=== PATIENT | female | born 1955 | race Caucasian/White ===

== ENCOUNTER 2020-12-24 00:13 | Emergency (ER) | payer MEDICARE ==
[2020-12-24 00:20] VITALS: RESP 18
[2020-12-24] MEDS ORDERED: HYDROcodone/APAP 5-325MG 1 EACH TAB PO STA (00:44)
[2020-12-24] MEDS ORDERED: DIPH,PERTUS(ACELL)TETVAC-LF 0.5 ML VIAL IM ONE (00:44)
--- NOTE | 2020-12-24 01:02 | ED ---
Animal Bite HPI - General Chief Complaint: Animal Bite Stated Complaint: Dog bite, rt hand Time Seen by Provider: 12/24/20 00:23 Source: patient Mode of arrival: ambulatory Limitations: no limitations - History of Present Illness Initial Comments: Patient is a 65-year-old female presenting to the emergency Department with complaints of pain in her right hand. Patient states that approximate 4:30 PM this evening, she went to break up a fight between her 2 dogs when one of them bit her on the right hand. Patient has two puncture wounds, one on the hand and one of the 4th right digit. Patient states she washed her hand right after. Throughout the evening, she noticed increase in pain and swelling. Patient states she was trying to hold off to see her regular doctor tomorrow however she was not able to sleep secondary to throbbing. Her dogs are all up-to-date with their vaccines including rabies. She is not up-to-date with her tetanus vacc ine. She is not on blood thinners. She has not taken anything for the pain. She has no further complaints at this time. - Related Data Previous Rx's Medication Instructions Recorded Amoxicillin/Potassium Clav 1 tab PO BID 10 Days #20 tab 12/24/20 [Augmentin 875-125 Tablet] Allergies Allergy/AdvReac Type Severity Reaction Status Date / Time No Known Allergies Allergy Verified 12/24/20 00:20 Review of Systems ROS Statement: Those systems with pertinent positive or pertinent negative responses have been documented in the HPI. ROS Other: All systems not noted in ROS Statement are negative. Past Medical History Past Medical History: No Reported History History of Any Multi-Drug Resistant Organisms: None Reported Past Surgical History: Tonsillectomy Past Psychological History: No Psychological Hx Reported Smoking Status: Current every day smoker Past Alcohol Use History: Occasional Past Drug Use History: None Reported General Exam - General Exam Comments Initial Comments: GENERAL: Patient is well-developed and well-nourished. Patient is nontoxic and in no acute distress. HEAD: Atraumatic, normocephalic. EYES: Pupils equal round and reactive to light, extraocular movements intact, sclera anicteric, conjunctiva are normal. Eyelids were unremarkable. ENT: TMs normal, nares patent, oropharynx clear without exudates. Moist mucous membranes. NECK: Normal range of motion, supple without lymphadenopathy or JVD. LUNGS: Unlabored respirations. Breath sounds clear to auscultation bilaterally and equal. No wheezes rales or rhonchi. HEART: Regular rate and rhythm without murmurs, rubs or gallops. ABDOMEN: Soft, nontender, normoactive bowel sounds. No guarding, no rebound. No masses appreciated. : Deferred MUSCULOSKELETAL: Patient does have full range of motion of her right hand and fingers as well as her wrist. She does have significant swelling over the dorsal aspect of her right hand. No clubbing or cyanosis. NEUROLOGICAL: Patient is alert and oriented x 3. Motor and sensory are also intact. Cranial nerves II through XII grossly intact. Symmetrical smile. Normal speech, normal gait. PSYCH: Normal mood, normal affect. SKIN: Warm, Dry, normal turgor, no rashes. Patient has significant swelling and some bruising of the right hand, dorsal aspect, there is a single puncture wound to the hand just proximal to the second MCP joint, she also has a second puncture wound to the fourth digit. Both of these wounds have no active bleeding. She is neurovascular intact. Limitations: no limitations Course Vital Signs 12/24/20 00:14 Temperature 98.2 F Pulse Rate 101 H Respiratory 18 Rate Blood Pressure 128/69 O2 Sat by Pulse 95 Oximetry Procedures - Orthopedic Splinting/Casting Injury #1 Side: right Upper Extremity Injury Location: hand Upper Extremity Immobilizer: posterior splint, Matteo wrap, synthetic pre-padded splint Medical Decision Making - Medical Decision Making Patient is a 65-year-old female here complaining of right hand pain after her dog bit her approximately 4:30 this afternoon. Her dogs are all up-to-date with their vaccines including rabies. We did update patient's tetanus vaccine today. X-rays reveal no acute fractures/dislocations in the right hand however I feel like there is a small irregularity in the second metacarpal right where she has a puncture wound. I will place the patient in a hand splint, I will also give her 1 g of Rocephin today as well as pain control. I will continue her on Augmentin. She will follow-up with her physician in 1-3 days, and also give her orthopedic referral as well. Patient is stable for discharge. Patient is in agreement with this plan of care. Return parameters were discussed with the patient and they verbalized understanding. Case discussed with Dr. Moreno. Disposition Clinical Impression: Dog bite of right hand Disposition: HOME SELF-CARE Condition: Stable Instructions (If sedation given, give patient instructions): Animal Bite (ED) Additional Instructions: Please return to the Emergency Department if symptoms worsen or any other concerns. Please take antibiotics as prescribed. Keep splint in place until follow-up with physician or orthopedics. May apply ice to the area, elevation for swelling control. I recommend taking Tylenol, alternate with aleve, for any discomfort, may take tramadol for more severe pain. Prescriptions: Amoxicillin/Potassium Clav [Augmentin 875-125 Tablet] 1 tab PO BID 10 Days #20 tab Is patient prescribed a controlled substance at d/c from ED?: No Referrals: Elder Delgado MD [Primary Care Provider] - 1-2 days Geoffrey Arriaga MD [STAFF PHYSICIAN] - 1-2 days
--- NOTE | 2020-12-24 01:25 | XR ---
EXAM: XR Right Hand Complete, 3 or More Views CLINICAL HISTORY: ITS.REASON XR Reason: dog bite, pain, swelling TECHNIQUE: Frontal, lateral and oblique views of the right hand. COMPARISON: No relevant prior studies available. FINDINGS: Bones/joints: Unremarkable. No acute fracture. No dislocation. Soft tissues: Mild soft tissue swelling over the dorsum of the hand. No radiopaque foreign body is seen. No subcutaneous gas. IMPRESSION: Mild soft tissue swelling over the dorsum of the hand. No radiopaque foreign body is seen. No fracture or dislocation identified.
[2020-12-24] MEDS ORDERED: traMADol 50 MG STARTER PACK 3 TAB BTL PO STA (01:56)
[2020-12-24] MEDS ORDERED: cefTRIAXone 1,000 MG VIAL (IM USE) IM STA (01:56)
[2020-12-24 02:15] VITALS: BP 101/54; PULSE 95; TEMP 99
== END 2020-12-24 02:18 | disposition home or self-care (01) ==
LOC: EC 00:13
DX: S61.431A Puncture wound without foreign body of right hand, initial encounter (principal); S61.234A Puncture wound without foreign body of right ring finger without damage to nail, initial encounter; F17.200 Nicotine dependence, unspecified, uncomplicated; Z23 Encounter for immunization; W54.0XXA Bitten by dog, initial encounter
CPT/HCPCS: 73130; 90715; 99283; 29125; 90471; 96372; J0696

== ENCOUNTER 2020-12-25 17:48 | Inpatient (IN) | payer MEDICARE ==
[2020-12-25] MEDS ORDERED: MORPHINE SULFATE 4 MG/ML SYRINGE IVP STA (18:12)
[2020-12-25] MEDS ORDERED: ONDANSETRON 4 MG/2 ML VIAL IVP STA (18:12)
--- NOTE | 2020-12-25 18:14 | ED ---
Animal Bite HPI - General Source: patient, RN notes reviewed Mode of arrival: ambulatory Limitations: no limitations <Cuate Chester - Last Filed: 12/25/20 18:18> <Bambi Tadeo - Last Filed: 12/30/20 14:44> - General Chief Complaint: Animal Bite Stated Complaint: Revisit - dog bite Time Seen by Provider: 12/25/20 18:02 - History of Present Illness Initial Comments: 65-year-old female presents emergency Department chief complaint of right hand dog bite infection. Patient states his happened on Tuesday was seen in emergency department this started antibiotics was given injection of antibiotics. Patient states the pain, swelling and redness have worsened. Patient states it's become very throbbing uncomfortable. Patient states has progressed even throughout the day. Patient's redness has spread to her right wrist. No known fevers but states that she's felt sick. No pain into her right elbow or axilla. (Cuate Chester) - Related Data Previous Rx's Medication Instructions Recorded Acetaminophen Tab [Tylenol] 650 mg PO Q6HR PRN #30 tab 12/29/20 Amoxicillin/Potassium Clav 1 tab PO BID 10 Days #20 tab 12/29/20 [Augmentin 875-125 Tablet] Calcium Carbonate [Tums] 500 mg PO QID PRN chew 12/29/20 HYDROcodone/APAP 5-325MG [[place] 1 each PO Q4HR PRN #12 tab 12/29/20 5-325] Nicotine 14Mg/24Hr Patch [Habitrol] 1 patch TRANSDERM DAILY 30 Days 12/29/20 #30 patch Pantoprazole [Protonix] 40 mg PO AC-BRKFST tablet. 12/29/20 Allergies Allergy/AdvReac Type Severity Reaction Status Date / Time ibuprofen [From Motrin] Allergy Dyspnea Verified 12/25/20 18:46 Review of Systems ROS Other: All systems not noted in ROS Statement are negative. <Cuate Chester - Last Filed: 12/25/20 18:18> ROS Other: All systems not noted in ROS Statement are negative. <Bambi Tadeo - Last Filed: 12/30/20 14:44> ROS Statement: Those systems with pertinent positive or pertinent negative responses have been documented in the HPI. Past Medical History Past Medical History: No Reported History History of Any Multi-Drug Resistant Organisms: None Reported Past Surgical History: Tonsillectomy Past Psychological History: No Psychological Hx Reported Smoking Status: Current every day smoker Past Alcohol Use History: Occasional Past Drug Use History: None Reported <Cuate Chester - Last Filed: 12/25/20 18:18> General Exam Limitations: no limitations General appearance: alert, in no apparent distress Head exam: Present: atraumatic, normocephalic, normal inspection Respiratory exam: Present: normal lung sounds bilaterally. Absent: respiratory distress, wheezes, rales, rhonchi, stridor Cardiovascular Exam: Present: regular rate, normal rhythm, normal heart sounds. Absent: systolic murmur, diastolic murmur, rubs, gallop, clicks Extremities exam: Present: other (Right hand there is extensive erythema on the dorsal aspects bending to the wrist there are 2 puncture wounds with purulent dr farrah noted, pain with movement of the digits.) <Cuate Chester - Last Filed: 12/25/20 18:18> Course Vital Signs 12/25/20 12/25/20 17:55 19:17 Temperature 98.3 F 98.7 F Pulse Rate 68 89 Respiratory 18 18 Rate Blood Pressure 105/68 114/56 O2 Sat by Pulse 99 98 Oximetry Medical Decision Making <Cuate Chester - Last Filed: 12/25/20 18:18> - Lab Data Result diagrams: 12/27/20 11:16 12/27/20 11:16 <Bambi Tadeo - Last Filed: 12/30/20 14:44> - Medical Decision Making 65-year-old female presents for recheck right hand dog bite. Patient has failed outpatient treatment. Patient has significant cellulitis. Patient be started on fosphenytoin and advice will be admitted to medicine with consult orthopedics. (Cuate Chester) I was available for consultation in the emergency department. The history and physical exam were done by the midlevel provider. I was consulted for this patients care. I reviewed the case with the midlevel provider and based on their presentation of the patient, I agree with the assessment, medical decision making and plan of care as documented. Patient evaluated by myself. She is stated on zosyn* Chart was dictated using EXFO dictation software. Attempts were made to correct any dictation errors however some typographical errors may persist. Patient was seen during a national state of emergency due to the Covid-19 pandemic. (Bambi Tadeo) - Lab Data Lab Results 12/25/20 12/25/20 12/25/20 Range/Units 18:22 18:22 18:22 WBC 12.4 H (3.8-10.6) k/uL RBC 3.83 (3.80-5.40) m/uL Hgb 13.0 (11.4-16.0) gm/dL Hct 37.7 (34.0-46.0) % MCV 98.3 (80.0-100.0) fL MCH 33.8 (25.0-35.0) pg MCHC 34.4 (31.0-37.0) g/dL RDW 13.0 (11.5-15.5) % Plt Count 194 (150-450) k/uL MPV 7.7 Neutrophils % 86 % Lymphocytes % 9 % Monocytes % 3 % Eosinophils % 2 % Basophils % 0 % Neutrophils # 10.6 H (1.3-7.7) k/uL Lymphocytes # 1.1 (1.0-4.8) k/uL Monocytes # 0.4 (0-1.0) k/uL Eosinophils # 0.2 (0-0.7) k/uL Basophils # 0.0 (0-0.2) k/uL Sodium 133 L (137-145) mmol/L Potassium 4.1 (3.5-5.1) mmol/L Chloride 99 (98-107) mmol/L Carbon Dioxide 26 (22-30) mmol/L Anion Gap 8 mmol/L BUN 10 (7-17) mg/dL Creatinine 0.62 (0.52-1.04) mg/dL Est GFR (CKD-EPI)AfAm >90 (>60 ml/min/1.73 sqM) Est GFR (CKD-EPI)NonAf >90 (>60 ml/min/1.73 sqM) Glucose 110 H (74-99) mg/dL Plasma Lactic Acid [place] 1.0 (0.7-2.0) mmol/L Calcium 9.3 (8.4-10.2) mg/dL Total Bilirubin 1.4 H (0.2-1.3) mg/dL AST 54 H (14-36) U/L ALT 28 (4-34) U/L Alkaline Phosphatase 71 (38-126) U/L C-Reactive Protein 54.6 H (<10.0) mg/L Total Protein 6.9 (6.3-8.2) g/dL Albumin 4.5 (3.5-5.0) g/dL Coronavirus (PCR) (Not Detectd) 12/25/20 12/27/20 12/27/20 Range/Units 19:00 11:16 11:16 WBC 5.3 (3.8-10.6) k/uL RBC 3.34 L (3.80-5.40) m/uL Hgb 10.8 L (11.4-16.0) gm/dL Hct 33.2 L (34.0-46.0) % MCV 99.6 (80.0-100.0) fL MCH 32.2 (25.0-35.0) pg MCHC 32.4 (31.0-37.0) g/dL RDW 13.5 (11.5-15.5) % Plt Count 183 (150-450) k/uL MPV 8.3 Neutrophils % 73 % Lymphocytes % 13 % Monocytes % 7 % Eosinophils % 4 % Basophils % 0 % Neutrophils # 3.9 (1.3-7.7) k/uL Lymphocytes # 0.7 L (1.0-4.8) k/uL Monocytes # 0.4 (0-1.0) k/uL Eosinophils # 0.2 (0-0.7) k/uL Basophils # 0.0 (0-0.2) k/uL Sodium 136 L (137-145) mmol/L Potassium 3.7 (3.5-5.1) mmol/L Chloride 105 (98-107) mmol/L Carbon Dioxide 29 (22-30) mmol/L Anion Gap 2 mmol/L BUN 6 L (7-17) mg/dL Creatinine 0.59 (0.52-1.04) mg/dL Est GFR (CKD-EPI)AfAm >90 (>60 ml/min/1.73 sqM) Est GFR (CKD-EPI)NonAf >90 (>60 ml/min/1.73 sqM) Glucose 158 H (74-99) mg/dL Plasma Lactic Acid [place] (0.7-2.0) mmol/L Calcium 8.2 L (8.4-10.2) mg/dL Total Bilirubin (0.2-1.3) mg/dL AST (14-36) U/L ALT (4-34) U/L Alkaline Phosphatase (38-126) U/L C-Reactive Protein (<10.0) mg/L Total Protein (6.3-8.2) g/dL Albumin (3.5-5.0) g/dL Coronavirus (PCR) Not Detected (Not Detectd) Disposition <Cuate Chester - Last Filed: 12/25/20 18:18> <Bambi Tadeo - Last Filed: 12/30/20 14:44> Clinical Impression: Dog bite of right hand with infection, Failure of outpatient treatment Disposition: ADMITTED IP TO THIS HOSP Condition: Fair
[2020-12-25] MEDS ORDERED: PIPERACILLIN-TAZOBACTAM 3.375 GM in SODIUM CHLORIDE 0.9% 100 ML IVPB STA (18:15)
[2020-12-25] MEDS ORDERED: NALOXONE 0.4 MG/ML 1 ML VIAL IV PRN (18:20)
[2020-12-25] MEDS ORDERED: ONDANSETRON 4 MG/2 ML VIAL IVP PRN (18:20)
[2020-12-25] MEDS ORDERED: KETOROLAC 15 MG/ML 1 ML VIAL IVP PRN (18:20)
[2020-12-25] MEDS: SODIUM CHLORIDE 0.9% 1,000 ML IV SCH (18:28)
[2020-12-25 18:30] LABS: Basophils % (A) 0 %; Eosinophils # (A) 0.2 k/uL (0-0.7); Eosinophils % (A) 2 %; HCT 37.7 % (34.0-46.0); Lymphocytes # (A) 1.1 k/uL (1.0-4.8); Lymphocytes % (A) 9 %; MCH 33.8 pg (25.0-35.0); MCHC 34.4 g/dL (31.0-37.0); MCV 98.3 fL (80.0-100.0); Mean Platelet Volume 7.7; Monocytes # (A) 0.4 k/uL (0-1.0); Monocytes % (A) 3 %; Neutrophils # (A) 10.6 k/uL (1.3-7.7); Neutrophils % (A) 86 %; Platelet Count 194 k/uL (150-450); RBC 3.83 m/uL (3.80-5.40); WBC 12.4 k/uL (3.8-10.6)
[2020-12-25 18:46] LABS: ALT 28 U/L (4-34); AST 54 U/L (14-36); African American GFR (CKD) >90 (>60 ml/min/1.73 sqM); Albumin 4.5 g/dL (3.5-5.0); Alkaline Phosphatase 71 U/L (38-126); Anion Gap 8 mmol/L; Blood Urea Nitrogen 10 mg/dL (7-17); C Reactive Protein 54.6 mg/L (<10.0); Calcium 9.3 mg/dL (8.4-10.2); Carbon Dioxide 26 mmol/L (22-30); Chloride 99 mmol/L (98-107); Glucose 110 mg/dL (74-99); Non-African American GFR(CKD) >90 (>60 ml/min/1.73 sqM); Potassium 4.1 mmol/L (3.5-5.1); Sodium 133 mmol/L (137-145); Total Bilirubin 1.4 mg/dL (0.2-1.3); Total Protein 6.9 g/dL (6.3-8.2)
[2020-12-25] MEDS: ACETAMINOPHEN TAB 325 MG TAB PO PRN (21:50)
[2020-12-25] MEDS: MORPHINE SULFATE 4 MG/ML SYRINGE IV PRN (21:50)
[2020-12-25] MEDS: PIPERACILLIN-TAZOBACTAM 3.375 GM in SODIUM CHLORIDE 0.9% 100 ML IVPB SCH (23:06)
[2020-12-25] MEDS: Acetaminophen-Codeine 300-30mg TAB PO PRN (23:17)
[2020-12-26] MEDS: SODIUM CHLORIDE 0.9% 1,000 ML IV SCH ×4 (01:10→23:16)
[2020-12-26] MEDS: MORPHINE SULFATE 4 MG/ML SYRINGE IV PRN (05:32)
[2020-12-26] MEDS: Acetaminophen-Codeine 300-30mg TAB PO PRN ×2 (05:33→20:19)
--- NOTE | 2020-12-26 09:05 | P.CNOR ---
History of Present Illness - [facility] Consult date: 12/26/20 Consult reason: other (Cellulitis right hand. Status post dog bite right hand.) History of present illness: This is a 65-year-old female admitted through the emergency department last evening with worsening of her right hand swelling. She has history of being bit by her neighbor's dog on 12/23/2020. She was seen in the emergency department initially and placed on oral antibiotics. Her swelling and redness worsened and she returned to the ER and has been admitted for IV antibiotics. We're consulted for orthopedic evaluation of the right hand. Past Medical History Past Medical History: No Reported History History of Any Multi-Drug Resistant Organisms: None Reported Past Surgical History: Tonsillectomy Past Psychological History: No Psychological Hx Reported Smoking Status: Current every day smoker Past Alcohol Use History: Occasional Past Drug Use History: None Reported Medications and Allergies Home Medications Medication Instructions Recorded Confirmed Type Amoxicillin/Potassium Clav 1 tab PO BID 10 Days #20 tab 12/24/20 12/25/20 Rx [Augmentin 875-125 Tablet] Allergies Allergy/AdvReac Type Severity Reaction Status Date / Time ibuprofen [From Motrin] Allergy Dyspnea Verified 12/25/20 18:46 Physical Examination This is a pleasant 65-year-old female in no acute distress. She is alert and oriented 3. Exam of the right upper extremity reveals erythema and swelling to the right hand and fingers. There are 3 small puncture wounds to the dorsum of the hand with no active drainage at this time. She has limited finger motion secondary to swelling. There is no focal area of abscess or fluid collection. She has a generalized swelling to the hand and fingers. There is no evidence of ascending lymphangitis. No axillary or epitrochlear lymph nodes palpable. Neurovascular status the upper extremity is intact. Results - Labs Labs: Abnormal Lab Results - Last 24 Hours (Table) 12/25/20 12/25/20 Range/Units 18:22 18:22 WBC 12.4 H (3.8-10.6) k/uL Neutrophils # 10.6 H (1.3-7.7) k/uL Sodium 133 L (137-145) mmol/L Glucose 110 H (74-99) mg/dL Total Bilirubin 1.4 H (0.2-1.3) mg/dL AST 54 H (14-36) U/L C-Reactive Protein 54.6 H (<10.0) mg/L Microbiology - Last 24 Hours (Table) 12/25/20 18:22 Wound Culture - Preliminary Hand - Right H & H 12/25/20 Range/Units 18:22 Hgb 13.0 (11.4-16.0) gm/dL Hct 37.7 (34.0-46.0) % Result Diagrams: 12/25/20 18:22 12/25/20 18:22 Assessment and Plan (1) Failure of outpatient treatment Current Visit: Yes Status: Acute Code(s): Z78.9 - OTHER SPECIFIED HEALTH STATUS SNOMED Code(s): 363468467 (2) Dog bite of right hand Current Visit: No Status: Acute Code(s): S61.451A - OPEN BITE OF RIGHT HAND, INITIAL ENCOUNTER; W54.0XXA - BITTEN BY DOG, INITIAL ENCOUNTER SNOMED Code(s): 535462782 Plan: The clinical findings are discussed with the patient and nursing staff. I will add moist heat pad to the right hand. Continue IV antibiotics. Internal medicine or infectious disease to manage IV antibiotic recommendations. There is no surgical indication at this time. Cultures from the ER pending. We will continue to follow.
[2020-12-26] MEDS: PIPERACILLIN-TAZOBACTAM 3.375 GM in SODIUM CHLORIDE 0.9% 100 ML IVPB SCH (09:21)
--- NOTE | 2020-12-26 12:38 | P.HPIM ---
History of Present Illness 6-year-old female came into hospital with complaints of pain and swelling in the right upper extremity after dog bite which happened about 3-4 days ago. Patient has significant pain and redness and swelling. Patient was started on Zosyn probably can be switched to Unasyn. Because of significant swelling in involvement of the hand patient was admitted. Patient was given oral antibiotics was discharged from came back with worsening symptoms subsequently admitted with orthopedic and infectious disease consult. Patient is a septic with the leukocytosis fever. Review of Systems REVIEW OF SYSTEMS: CONSTITUTIONAL: No fever, no malaise, no fatigue. HEENT: No recent visual problems or hearing problems. Denied any sore throat. CARDIOVASCULAR: No chest pain, orthopnea, PND, no palpitations, no syncope. PULMONARY: No shortness of breath, no cough, no hemoptysis. GASTROINTESTINAL: No diarrhea, no nausea, no vomiting, no abdominal pain. NEUROLOGICAL: No headaches, no weakness, no numbness. HEMATOLOGICAL: Denies any bleeding or petechiae. GENITOURINARY: Denies any burning micturition, frequency, or urgency. MUSCULOSKELETAL/RHEUMATOLOGICAL: As mentioned in HPI ENDOCRINE: Denies any polyuria or polydipsia. The rest of the 14-point review of systems is negative. Past Medical History Past Medical History: No Reported History History of Any Multi-Drug Resistant Organisms: None Reported Past Surgical History: Tonsillectomy Past Psychological History: No Psychological Hx Reported Smoking Status: Current every day smoker Past Alcohol Use History: Occasional Past Drug Use History: None Reported Medications and Allergies Home Medications Medication Instructions Recorded Confirmed Type Amoxicillin/Potassium Clav 1 tab PO BID 10 Days #20 tab 12/24/20 12/25/20 Rx [Augmentin 875-125 Tablet] Allergies Allergy/AdvReac Type Severity Reaction Status Date / Time ibuprofen [From Motrin] Allergy Dyspnea Verified 12/25/20 18:46 Physical Exam Vitals: Vital Signs Temp Pulse Pulse Resp BP BP Pulse Ox 12/26/20 07:00 100.6 F H 94 16 101/53 93 L 12/26/20 05:27 99.7 F H 12/26/20 02:50 94 12/26/20 02:49 101.6 F H 94 102/58 97 12/25/20 20:33 99.6 F 88 96/56 97 12/25/20 19:17 98.7 F 89 18 114/56 98 12/25/20 17:55 98.3 F 68 18 105/68 99 Intake and Output 12/25/20 12/26/20 12/26/20 22:59 06:59 14:59 Other: Voiding Method Toilet # Voids 1 1 Weight 54.431 kg PHYSICAL EXAMINATION: GENERAL: The patient is alert and oriented x3, not in any acute distress. Well developed, well nourished. HEENT: Pupils are round and equally reacting to light. EOMI. No scleral icterus. No conjunctival pallor. Normocephalic, atraumatic. No pharyngeal erythema. No thyromegaly. CARDIOVASCULAR: S1 and S2 present. No murmurs, rubs, or gallops. PULMONARY: Chest is clear to auscultation, no wheezing or crackles. ABDOMEN: Soft, nontender, nondistended, normoactive bowel sounds. No palpable organomegaly. MUSCULOSKELETAL: No joint swelling or deformity. EXTREMITIES: No cyanosis, clubbing, or pedal edema. Patient has a swelling of the right hand with significant local is of temperature tenderness NEUROLOGICAL: Gross neurological examination did not reveal any focal deficits. SKIN: No rashes. Results CBC & Chem 7: 12/25/20 18:22 12/25/20 18:22 Labs: Abnormal Lab Results - Last 24 Hours (Table) 12/25/20 12/25/20 Range/Units 18:22 18:22 WBC 12.4 H (3.8-10.6) k/uL Neutrophils # 10.6 H (1.3-7.7) k/uL Sodium 133 L (137-145) mmol/L Glucose 110 H (74-99) mg/dL Total Bilirubin 1.4 H (0.2-1.3) mg/dL AST 54 H (14-36) U/L C-Reactive Protein 54.6 H (<10.0) mg/L Microbiology - Last 24 Hours (Table) 12/25/20 18:22 Gram Stain - Preliminary Hand - Right Wound Culture - Preliminary Thrombosis Risk Factor Assmnt - Choose All That Apply Each Risk Factor Represents 2 Points: Age 61-74 years Thrombosis Risk Factor Assessment Total Risk Factor Score: 2 Thrombosis Risk Factor Assessment Level: Low Risk Assessment and Plan Plan: -Sepsis: Secondary to cellulitis infection of the right hand secondary to diabetic patient is a Zosyn probably can be switched to Unasyn. Patient received tetanus shot. -Leukocytosis secondary to sepsis as mentioned above -Nicotine use: Counseling was provided -DVT prophylaxis early ambulation
[2020-12-26] MEDS: HYDROcodone/APAP 5-325MG 1 EACH TAB PO PRN ×2 (13:35→18:38)
--- NOTE | 2020-12-26 16:11 | CONS ---
CONSULTATION DATE OF SERVICE: 12/26/2020 REASON FOR FOLLOWUP: Right hand dog bite cellulitis. HISTORY OF PRESENT ILLNESS: The patient is a 65-year-old female who apparently did have a bite on the right hand on Tuesday that is 3 days prior to presentation to the hospital, the patient was seen on the same day. Patient was evaluated. At that point, she received a dose of IM antibiotic and was discharged home on oral Augmentin which the patient took for about a day and a half. However, the right wrist and hand were becoming more swollen, red and painful. The patient described the pain to be throbbing to dull aching intensity almost 7 to 8/10, no radiation. Currently, the patient does not have any open wound or any drainage. The patient denies high-grade fever at home; however, she did have fever of 101.6 degrees Fahrenheit early this morning. The patient did have white count of 12.4. Kidd PCR was negative. Wound culture has been , currently pending. The patient did have x-rays of the hand done on the , which showed some mild soft tissue swelling and no x-ray was repeated during this admission. She was started on Zosyn and admitted to the hospital. Infectious Disease was consulted for further management of antibiotic therapy. REVIEW OF SYSTEMS: Positive points have been mentioned in HPI. Rest of systems are negative. PAST MEDICAL HISTORY: No major illnesses. PAST SURGICAL HISTORY: Tonsillectomy. SOCIAL HISTORY: Current everyday smoker. Occasionally drinks. No drug use. FAMILY HISTORY: No pertinent findings noticed. ALLERGIES: IBUPROFEN. MEDICATIONS: Medications include the patient is currently on Tylenol, [place], Zosyn, morphine sulfate, Narcan, Zofran and IV fluid. PHYSICAL EXAMINATION: Blood pressure 101/53 with a pulse of 94, temperature 100.6, T-max 101.6. She is 93% on room air. General description is an elderly female lying in bed in no distress. No tachypnea or accessory muscle of respiration use. HEENT: Examination shows no pallor or scleral icterus. Oral mucous membrane is dry. No pharyngeal erythema or thrush. NECK: Trachea central. No thyromegaly. LUNGS: Unlabored breathing, clear to auscultation anteriorly. No wheeze or crackle. HEART: S1, S2. Regular rate and rhythm. ABDOMEN: Soft, no tenderness. No guarding or rigidity. EXTREMITIES: No edema of feet. Examination of right hand dorsum has mild swelling and redness, slightly warm to touch and tender. No induration or drainage was noticed. Neurological: Patient is awake, alert, oriented x3. Mood and affect normal. LABS: Hemoglobin 13, white count 2.4, BUN of 10, creatinine 0.62. Electrolytes have been normal. Liver enzymes mildly elevated. Local culture is currently pending. DIAGNOSTIC IMPRESSION: Patient with right hand dog bite and cellulitis, failing outpatient oral Augmentin, more likely because of the wound disease. Clinically doubt any worsening infection or any underlying abscess and will need to cover for the oral eric of the dog with a combination of both gram-negative aerobes and anaerobes. PLAN: 1. Discontinue Zosyn. 2. Start the patient on Unasyn 3 grams q.6 hours. 3. We will follow on clinical condition and culture to further adjust medication if needed. Thank you for this consultation. Will follow this patient along with you. MMODL / IJN: [id number] /
[2020-12-26] MEDS: AMPICILLIN-SULBACTAM 3 GM in SODIUM CHLORIDE 0.9% 100 ML IVPB SCH ×2 (18:00→23:14)
[2020-12-27] MEDS: HYDROcodone/APAP 5-325MG 1 EACH TAB PO PRN ×3 (02:55→19:49)
[2020-12-27] MEDS: Acetaminophen-Codeine 300-30mg TAB PO PRN ×2 (02:57→12:09)
[2020-12-27] MEDS: AMPICILLIN-SULBACTAM 3 GM in SODIUM CHLORIDE 0.9% 100 ML IVPB SCH ×4 (05:26→23:51)
--- NOTE | 2020-12-27 11:34 | P.PN ---
Subjective Progress Note Date: 12/27/20 Principal diagnosis: Right upper extremity cellulitis. Status post dog bite right hand. This is a 65-year-old female admitted through the emergency department with worsening of her right hand swelling. She has history of being bit by her neighbor's dog on 12/23/2020. She was seen in the emergency department initially and placed on oral antibiotics. Her swelling and redness worsened and she returned to the ER and has been admitted for IV antibiotics. We're consulted for orthopedic evaluation of the right hand. Moist heat has not yet been applied to the hand. She states that she feels she's had slight improvement the last 24 hours. Temperature is 99.5. Wound culture shows no growth at 24 hours. Objective - Vital Signs Vital signs: Vital Signs Temp 99.5 F 12/27/20 02:53 Pulse 103 H 12/27/20 03:06 Resp 18 12/26/20 15:00 BP 119/69 12/27/20 02:53 Pulse Ox 93 L 12/27/20 02:53 Intake & Output 12/26/20 12/27/20 12/27/20 18:59 06:59 18:59 Intake Total 100 900 180 Balance 100 900 180 Intake: Intake, IV Titration 100 Amount Piperacillin-Tazobactam 3 100 .375 gm In Sodium Chloride 0.9% 100 ml @ 25 mls/hr IVPB Q8HR [facility] Rx# :[id number] Oral 900 180 Other: Voiding Method Toilet Toilet Toilet # Voids 1 4 - Exam Exam of the right hand reveals slight improvement in swelling. She has a little bit more finger motion today than she had yesterday. Still unable to make a full fist. Mild erythema to the dorsum of the hand. No erythematous streaking up the arm or obvious signs of lymphangitis. Neurovascular status to the upper extremity is intact. - Labs CBC & Chem 7: 12/25/20 18:22 12/25/20 18:22 Labs: Microbiology - Last 24 Hours (Table) 12/25/20 18:22 Blood Culture - Preliminary Blood No Growth after 24 hours 12/25/20 18:22 Gram Stain - Preliminary Hand - Right Wound Culture - Preliminary Assessment and Plan (1) Failure of outpatient treatment Current Visit: Yes Status: Acute Code(s): Z78.9 - OTHER SPECIFIED HEALTH STATUS SNOMED Code(s): 540109003 (2) Dog bite of right hand Current Visit: No Status: Acute Code(s): S61.451A - OPEN BITE OF RIGHT HAND, INITIAL ENCOUNTER; W54.0XXA - BITTEN BY DOG, INITIAL ENCOUNTER SNOMED Code(s): 233928941 Plan: The clinical findings are discussed with the patient and nursing staff. I still recommend moist heat to the right hand. Continue IV antibiotics. There is no surgical indication at this time. Cultures from the ER pending. We will continue to follow.
[2020-12-27 11:35] LABS: Basophils % (A) 0 %; Eosinophils # (A) 0.2 k/uL (0-0.7); Eosinophils % (A) 4 %; HCT 33.2 % (34.0-46.0); HGB 10.8 gm/dL (11.4-16.0); Lymphocytes # (A) 0.7 k/uL (1.0-4.8); Lymphocytes % (A) 13 %; MCH 32.2 pg (25.0-35.0); MCHC 32.4 g/dL (31.0-37.0); MCV 99.6 fL (80.0-100.0); Mean Platelet Volume 8.3; Monocytes # (A) 0.4 k/uL (0-1.0); Monocytes % (A) 7 %; Neutrophils # (A) 3.9 k/uL (1.3-7.7); Neutrophils % (A) 73 %; Platelet Count 183 k/uL (150-450); RBC 3.34 m/uL (3.80-5.40); RDW 13.5 % (11.5-15.5); WBC 5.3 k/uL (3.8-10.6)
[2020-12-27 11:42] LABS: African American GFR (CKD) >90 (>60 ml/min/1.73 sqM); Anion Gap 2 mmol/L; Blood Urea Nitrogen 6 mg/dL (7-17); Calcium 8.2 mg/dL (8.4-10.2); Carbon Dioxide 29 mmol/L (22-30); Chloride 105 mmol/L (98-107); Glucose 158 mg/dL (74-99); Non-African American GFR(CKD) >90 (>60 ml/min/1.73 sqM); Potassium 3.7 mmol/L (3.5-5.1); Sodium 136 mmol/L (137-145)
--- NOTE | 2020-12-27 11:44 | P.PN ---
Subjective Progress Note Date: 12/27/20 65-year-old female came into hospital with complaints of pain and swelling in the right upper extremity after dog bite which happened about 3-4 days ago. Patient has significant pain and redness and swelling. Patient was started on Zosyn probably can be switched to Unasyn. Because of significant swelling in involvement of the hand patient was admitted. Patient was given oral antibiotics was discharged from came back with worsening symptoms subsequently admitted with orthopedic and infectious disease consult. Patient is septic with the leukocytosis and fever. 12/27/2020 Patient is seen in follow-up with no acute overnight issues. Right hand continues to have swelling and redness noted although patient states the swelling is slightly improved. Patient continues to be unable to fully squeeze hand closed although does have sensation to all digits. Patient is maintained on IV antibiotics in the form of Unasyn and infectious disease is following. Cultures pending at this time and awaiting for finalization determine antibiotic coverage upon discharge. She was seen and evaluated by orthopedic surgery recommending conservative management and no surgical interventions needed at this time. Instructed to continue to elevate right upper extremity on a pillow as she has been doing. Review of systems: Constitutional: No reports of fatigue, fever, or chills Cardiovascular: No reports of chest pain or palpitations Respiratory: No reports of shortness of breath or cough GI: No reports of nausea, vomiting, or diarrhea : No reports of dysuria or retention Neurovascular: No reports of weakness or numbness, reports right hand swelling and tenderness with some redness although slightly improved, no reports of tingling or numbness of the right hand All medications have been reviewed Objective - Vital Signs Vital signs: Vital Signs Temp 99.5 F 12/27/20 02:53 Pulse 103 H 12/27/20 03:06 Resp 18 12/26/20 15:00 BP 119/69 12/27/20 02:53 Pulse Ox 93 L 12/27/20 02:53 Intake & Output 12/26/20 12/27/20 12/27/20 18:59 06:59 18:59 Intake Total 100 900 180 Balance 100 900 180 Intake: Intake, IV Titration 100 Amount Piperacillin-Tazobactam 3 100 .375 gm In Sodium Chloride 0.9% 100 ml @ 25 mls/hr IVPB Q8HR [facility] Rx# :[id number] Oral 900 180 Other: Voiding Method Toilet Toilet # Voids 1 4 - Exam GENERAL: The patient is alert and oriented x3, not in any acute distress. Well developed, well nourished. HEENT: Pupils are round and equally reacting to light. EOMI. No scleral icterus. No conjunctival pallor. Normocephalic, atraumatic. No pharyngeal erythema. No thyromegaly. CARDIOVASCULAR: S1 and S2 present. No murmurs, rubs, or gallops. PULMONARY: Chest is clear to auscultation, no wheezing or crackles. ABDOMEN: Soft, nontender, nondistended, normoactive bowel sounds. No palpable organomegaly. MUSCULOSKELETAL: No joint swelling or deformity. EXTREMITIES: No cyanosis, clubbing, or pedal edema. Patient has swelling and erythema of the right hand with significant localization of temperature, tenderness on palpation, redness and swelling slightly improved NEUROLOGICAL: Gross neurological examination did not reveal any focal deficits. SKIN: No rashes. - Labs CBC & Chem 7: 12/27/20 11:16 12/25/20 18:22 Labs: Microbiology - Last 24 Hours (Table) 12/25/20 18:22 Blood Culture - Preliminary Blood No Growth after 24 hours 12/25/20 18:22 Gram Stain - Preliminary Hand - Right Wound Culture - Preliminary Assessment and Plan Assessment: -Sepsis: Secondary to cellulitis infection of the right hand secondary to a dog bite of the neighbors dog with unknown immunization history. She is maintained on Unasyn and awaiting cultures. Infectious disease following.. Patient received tetanus shot. -Leukocytosis secondary to sepsis as mentioned above, improved white blood count is 5.3 -Nicotine use: Counseling was provided -DVT prophylaxis early ambulation Plan: Continue with IV antibiotic therapy. Infectious disease is following. Awaiting cultures to determine discharge antibiotics. Continue with pain management. Instructed the patient to continue to elevate right upper extremity on a pillow. Orthopedic surgery also following recommending conservative management with no surgical intervention at this time. Possible discharge in 24 hours
--- NOTE | 2020-12-27 13:19 | PN ---
PROGRESS NOTE DATE OF SERVICE: 12/27/2020 REASON FOR FOLLOWUP: Right hand dog bite cellulitis. INTERVAL HISTORY: The patient is currently afebrile. The patient is breathing comfortably. Right hand pain and swelling have slightly decreased. No chest pain, shortness of breath or cough. No diarrhea. PHYSICAL EXAMINATION: Blood pressure is 119/69 with a pulse of 103. Temperature 99.5. She is 93% on room air. General description: The patient is an elderly female lying in bed in no distress. Respiratory system: Unlabored breathing. Clear to auscultation anteriorly. Heart S1, S2. Regular rate and rhythm. Abdomen soft, no tenderness. Right hand swelling and redness is slightly decreased. LABS: No new labs have been obtained today. Blood culture negative. culture so far pending. DIAGNOSTIC IMPRESSION AND PLAN: Patient with right hand dog bite cellulitis. The patient is currently covered with Unasyn to continue while waiting for the culture to finalize before transition to oral antibiotics. Continue supportive care. MMODL / IJN: [id number] /
[2020-12-27] MEDS: SODIUM CHLORIDE 0.9% 1,000 ML IV SCH ×2 (15:26→23:53)
[2020-12-28] MEDS: Acetaminophen-Codeine 300-30mg TAB PO PRN (01:56)
[2020-12-28] MEDS: MORPHINE SULFATE 4 MG/ML SYRINGE IV PRN ×3 (05:54→16:04)
[2020-12-28] MEDS: AMPICILLIN-SULBACTAM 3 GM in SODIUM CHLORIDE 0.9% 100 ML IVPB SCH ×4 (05:56→23:11)
[2020-12-28] MEDS ORDERED: CALCIUM CARBONATE 500 MG CHEWABLE PO PRN (06:25)
[2020-12-28] MEDS: NICOTINE 14MG/24HR PATCH TRANSDERM SCH (08:07)
[2020-12-28] MEDS: SODIUM CHLORIDE 0.9% 1,000 ML IV SCH ×2 (08:11→20:27)
[2020-12-28] MEDS: PANTOPRAZOLE 40 MG TABLET PO SCH (08:14)
--- NOTE | 2020-12-28 11:08 | P.PN ---
Subjective Progress Note Date: 12/28/20 Principal diagnosis: Right upper extremity cellulitis. Status post dog bite right hand. This is a 65-year-old female admitted through the emergency department with worsening of her right hand swelling. She has history of being bit by her neighbor's dog on 12/23/2020. She was seen in the emergency department initially and placed on oral antibiotics. Her swelling and redness worsened and she returned to the ER and has been admitted for IV antibiotics. We're consulted for orthopedic evaluation of the right hand. Moist heat has not yet been applied to the hand. She states that she feels she's had slight improvement the last 24 hours. Temperature is 99.5. Wound culture shows no growth at 48 hours. Objective - Vital Signs Vital signs: Vital Signs Temp 99.2 F 12/28/20 07:00 Pulse 90 12/28/20 07:00 Resp 18 12/28/20 07:00 BP 114/63 12/28/20 07:00 Pulse Ox 96 12/28/20 07:00 Intake & Output 12/27/20 12/28/20 12/28/20 18:59 06:59 18:59 Intake Total 360 Balance 360 Intake: Oral 360 Other: Voiding Method Toilet Toilet # Voids 1 1 # Bowel Movements 1 - Exam Exam of the right hand reveals slight improvement in swelling. Still unable to make a full fist or fully extend fingers. Mild erythema to the dorsum of the hand. No erythematous streaking up the arm or obvious signs of lymphangitis. Neurovascular status to the upper extremity is intact. - Labs CBC & Chem 7: 12/27/20 11:16 12/27/20 11:16 Labs: Abnormal Lab Results - Last 24 Hours (Table) 12/27/20 12/27/20 Range/Units 11:16 11:16 RBC 3.34 L (3.80-5.40) m/uL Hgb 10.8 L (11.4-16.0) gm/dL Hct 33.2 L (34.0-46.0) % Lymphocytes # 0.7 L (1.0-4.8) k/uL Sodium 136 L (137-145) mmol/L BUN 6 L (7-17) mg/dL Glucose 158 H (74-99) mg/dL Calcium 8.2 L (8.4-10.2) mg/dL Microbiology - Last 24 Hours (Table) 12/25/20 18:22 Blood Culture - Preliminary Blood No Growth after 48 hours 12/25/20 18:22 Gram Stain - Final Hand - Right Wound Culture - Final Assessment and Plan (1) Failure of outpatient treatment Current Visit: Yes Status: Acute Code(s): Z78.9 - OTHER SPECIFIED HEALTH STATUS SNOMED Code(s): 821335007 (2) Dog bite of right hand Current Visit: No Status: Acute Code(s): S61.451A - OPEN BITE OF RIGHT HAND, INITIAL ENCOUNTER; W54.0XXA - BITTEN BY DOG, INITIAL ENCOUNTER SNOMED Code(s): 211316854 Plan: The clinical findings are discussed with the patient and nursing staff. I still recommend moist heat to the right hand. Continue IV antibiotics. There is no surgical indication at this time. We will continue to follow peripherally.
--- NOTE | 2020-12-28 12:50 | P.PN ---
Subjective Progress Note Date: 12/28/20 65-year-old female came into hospital with complaints of pain and swelling in the right upper extremity after dog bite which happened about 3-4 days ago. Patient has significant pain and redness and swelling. Patient was started on Zosyn probably can be switched to Unasyn. Because of significant swelling in involvement of the hand patient was admitted. Patient was given oral antibiotics was discharged from came back with worsening symptoms subsequently admitted with orthopedic and infectious disease consult. Patient is septic with the leukocytosis and fever. 12/27/2020 Patient is seen in follow-up with no acute overnight issues. Right hand continues to have swelling and redness noted although patient states the swelling is slightly improved. Patient continues to be unable to fully squeeze hand closed although does have sensation to all digits. Patient is maintained on IV antibiotics in the form of Unasyn and infectious disease is following. Cultures pending at this time and awaiting for finalization determine antibiotic coverage upon discharge. She was seen and evaluated by orthopedic surgery recommending conservative management and no surgical interventions needed at this time. Instructed to continue to elevate right upper extremity on a pillow as she has been doing. 12/28/2020 Patient is seen and evaluated this morning with no acute overnight issues. Localization of heat shows no improvement to the right hand with continued swelling and mild erythema noted. Patient states she is unable to squeeze her hand and feels her skin is more tight. Patient has been elevating the extremity although has not been applying ice and/or heat. Will initiate moist heat and mo nitor closely. [place] disease following as patient is maintained on IV antibiotic therapy in the form of Unasyn. Cultures resulted showing normal eric with no growth. Patient has had intermittent low-grade 99.9 temp noted. Review of systems: Constitutional: No reports of fatigue, fever, or chills Cardiovascular: No reports of chest pain or palpitations Respiratory: No reports of shortness of breath or cough GI: No reports of nausea, vomiting, or diarrhea : No reports of dysuria or retention Neurovascular: No reports of weakness or numbness, reports right hand swelling and tenderness with some redness although slightly improved, no reports of tingling or numbness of the right hand All medications have been reviewed Objective - Vital Signs Vital signs: Vital Signs Temp 99.2 F 12/28/20 07:00 Pulse 90 12/28/20 07:00 Resp 18 12/28/20 07:00 BP 114/63 12/28/20 07:00 Pulse Ox 96 12/28/20 07:00 Intake & Output 12/27/20 12/28/20 12/28/20 18:59 06:59 18:59 Intake Total 360 Balance 360 Intake: Oral 360 Other: Voiding Method Toilet Toilet # Voids 1 1 # Bowel Movements 1 - Exam GENERAL: The patient is alert and oriented x3, not in any acute distress. Well developed, well nourished. HEENT: Pupils are round and equally reacting to light. EOMI. No scleral icterus. No conjunctival pallor. Normocephalic, atraumatic. No pharyngeal erythema. No thyromegaly. CARDIOVASCULAR: S1 and S2 present. No murmurs, rubs, or gallops. PULMONARY: Chest is clear to auscultation, no wheezing or crackles. ABDOMEN: Soft, nontender, nondistended, normoactive bowel sounds. No palpable organomegaly. MUSCULOSKELETAL: No joint swelling or deformity. EXTREMITIES: No cyanosis, clubbing, or pedal edema. Patient has swelling and erythema of the right hand with significant localization of temperature, tenderness on palpation, redness and swelling slightly improved NEUROLOGICAL: Gross neurological examination did not reveal any focal deficits. SKIN: No rashes. - Labs CBC & Chem 7: 12/27/20 11:16 12/27/20 11:16 Labs: Microbiology - Last 24 Hours (Table) 12/25/20 18:22 Blood Culture - Preliminary Blood No Growth after 48 hours 12/25/20 18:22 Gram Stain - Final Hand - Right Wound Culture - Final Assessment and Plan Assessment: -Sepsis: Secondary to cellulitis infection of the right hand secondary to a dog bite of the neighbors dog with unknown immunization history. She is maintained on Unasyn. Infectious disease following.. Patient received tetanus shot. -Leukocytosis secondary to sepsis as mentioned above, improved white blood count is 5.3 -Nicotine use: Counseling was provided -DVT prophylaxis early ambulation Plan: Continue with IV antibiotic therapy. Infectious disease is following. cultures resulted showing normal skin eric with no growth noted. Continue with pain management. Instructed the patient to continue to elevate right upper extremity on a pillow. Continue with moist heat to the right hand and may alternate with cold packs. Orthopedic surgery also following recommending conservative management with no surgical intervention at this time. Possible discharge in 24 hours
[2020-12-28] MEDS: HYDROcodone/APAP 5-325MG 1 EACH TAB PO PRN (20:29)
[2020-12-29] MEDS: AMPICILLIN-SULBACTAM 3 GM in SODIUM CHLORIDE 0.9% 100 ML IVPB SCH ×3 (06:00→17:22)
[2020-12-29] MEDS: SODIUM CHLORIDE 0.9% 1,000 ML IV SCH ×2 (06:02→17:22)
--- NOTE | 2020-12-29 06:55 | PN ---
PROGRESS NOTE DATE OF SERVICE: 12/28/2020 REASON FOR FOLLOWUP: Right hand dog bite cellulitis. INTERVAL HISTORY: Patient is currently afebrile. The patient is breathing comfortably. Denies having any chest pain or shortness of breath. No cough. No abdominal pain. Overall, right hand dorsum swelling has improved. PHYSICAL EXAMINATION: Blood pressure 123/72 with a pulse of 90, temperature 97.8, she is 97% on room air. General description is an elderly female lying in bed in no distress. Respiratory system: Unlabored breathing, clear to auscultation anteriorly. Heart S1, S2. Regular rate and rhythm. Abdomen is soft, no tenderness. Right hand swelling and redness has decreased. LABS: Hemoglobin is 10.4, white count 5.3. Culture has been skin eric. Blood culture negative. DIAGNOSTIC IMPRESSION AND PLAN: Patient with right hand wound cellulitis in this patient who has shown overall clinical improvement. Plan is to finish therapy with oral Augmentin and close outpatient followup. Questions and concerns were answered. MMODL / IJN: [id number] /
[2020-12-29] MEDS: NICOTINE 14MG/24HR PATCH TRANSDERM SCH (08:32)
[2020-12-29] MEDS: PANTOPRAZOLE 40 MG TABLET PO SCH (08:32)
--- NOTE | 2020-12-29 11:21 | P.PN ---
Subjective Progress Note Date: 12/29/20 Principal diagnosis: Right upper extremity cellulitis. Status post dog bite right hand. This is a 65-year-old female admitted through the emergency department with worsening of her right hand swelling. She has history of being bit by her neighbor's dog on 12/23/2020. She was seen in the emergency department initially and placed on oral antibiotics. Her swelling and redness worsened and she returned to the ER and has been admitted for IV antibiotics. We're consulted for orthopedic evaluation of the right hand. 12/29/2020:She has had moist heat applied to the hand. Her hand seems to be improving. Objective - Vital Signs Vital signs: Vital Signs Temp 98.3 F 12/29/20 07:00 Pulse 92 12/29/20 07:00 Resp 16 12/29/20 07:00 BP 126/71 12/29/20 07:00 Pulse Ox 93 L 12/29/20 07:00 Intake & Output 12/28/20 12/29/20 12/29/20 18:59 06:59 18:59 Intake Total 200 Balance 200 Intake: Oral 200 Other: Voiding Method Toilet # Voids 2 2 - Exam Exam of the right hand reveals slight improvement in swelling. Still unable to make a full fist or fully extend fingersBut finger motion is improving. Mild erythema to the dorsum of the hand. No erythematous streaking up the arm or obvious signs of lymphangitis. Neurovascular status to the upper extremity is intact. - Labs CBC & Chem 7: 12/27/20 11:16 12/27/20 11:16 Labs: Microbiology - Last 24 Hours (Table) 12/25/20 18:22 Blood Culture - Preliminary Blood No Growth after 72 hours Assessment and Plan (1) Failure of outpatient treatment Current Visit: Yes Status: Acute Code(s): Z78.9 - OTHER SPECIFIED HEALTH STATUS SNOMED Code(s): 913477019 (2) Dog bite of right hand Current Visit: No Status: Acute Code(s): S61.451A - OPEN BITE OF RIGHT HAND, INITIAL ENCOUNTER; W54.0XXA - BITTEN BY DOG, INITIAL ENCOUNTER SNOMED Code(s): 489050247 Plan: The clinical findings are discussed with the patient and nursing staff. She may be discharged to home per medicine. Follow-up with primary care. It is recommended she remain off work for at least the next 2 weeks.
--- NOTE | 2020-12-29 12:43 | CT ---
EXAMINATION TYPE: CT upper extremity RT w con DATE OF EXAM: 12/29/2020 COMPARISON: Right hand x-ray December 24, 2020. HISTORY: Pain and swelling along with redness after recent dog bite injury. CT DLP: 311.6 mGycm Automated exposure control for dose reduction was used. CONTRAST: Performed with IV Contrast, patient injected with 100 mL of Isovue 300. FINDINGS: Imaging is performed beginning at the elbow through the distal fingers. There is no suspicious bony d estruction or abnormal periosteal reaction to suggest acute osteomyelitis. There is mild to moderate subcutaneous edema along the dorsal aspect of the forearm beginning at the elbow joint extending to t he mid to distal forearm, the greatest proximal forearm level. No well-formed fluid collection or abs cess seen. Muscle bulk is maintained. Patent normal arteries and veins present. No suspicious enhance ment. There is prominence of the muscle near the second and third metacarpal heads seen best on axial image 176 series 4. Findings suspicious for underlying myositis. Mild to moderate subcutaneous edema is pr esent greatest along dorsal aspect. There is asymmetric enlargement and focal fluid at the third meta carpophalangeal joint with thin rim enhancement. This is best seen along the radial aspect of the jane nt space coronal image 8 series 9. Findings consistent with joint effusion/synovitis. Finding could b e reactive in nature. No suspicious narrowing, erosion, or focal osteopenia to suggest septic arthrit is currently. IMPRESSION: Mild to moderate subcutaneous edema along the proximal to mid forearm greatest along dors al surface. No well-formed abscess. Focal myositis both present involving the muscles surrounding the second and third metacarpal heads. Correlate clinically. Asymmetric third MCP joint effusion/synovit is. Patient should be closely monitored to exclude septic arthritis, no convincing CT evidence for ac kang septic arthritis currently.
[2020-12-29] MEDS: Acetaminophen-Codeine 300-30mg TAB PO PRN (20:08)
--- NOTE | 2020-12-29 22:50 | PN ---
PROGRESS NOTE DATE OF SERVICE: 12/29/2020 REASON FOR FOLLOWUP: Right hand dog bite cellulitis. INTERVAL HISTORY: The patient is currently afebrile. The patient is breathing comfortably. The patient's overall pain and swelling to the right hand dorsum has slightly decreased. The patient denies having any chest pain, shortness of breath or cough. No nausea, no vomiting, no abdominal pain or diarrhea. PHYSICAL EXAMINATION: Her blood pressure 123/72 with a pulse of 77, temperature 98.2. She is 97% on room air. General description is a middle-aged female lying in bed in no distress. RESPIRATORY SYSTEM: Unlabored breathing. Clear to auscultation anteriorly. HEART: S1, S2. Regular rate and rhythm. ABDOMEN: Soft. No tenderness. Right hand still has some swelling, though slightly decreased. No drainage. LABS: Wound culture negative. Blood culture negative. CT has been done with concern for possible focal myositis. DIAGNOSTIC IMPRESSION AND PLAN: Patient with right hand dog bite cellulitis, now with evidence of focal myositis on the CT. The patient is on Unasyn. Will arrange for a short course of IV antibiotic in the outpatient setting. This discussed further with the supervisor case loading. Continue with Unasyn for now and monitor her clinical course closely. MMODL / IJN: [id number] /
[2020-12-30] MEDS: AMPICILLIN-SULBACTAM 3 GM in SODIUM CHLORIDE 0.9% 100 ML IVPB SCH ×4 (00:37→18:54)
[2020-12-30] MEDS: SODIUM CHLORIDE 0.9% 1,000 ML IV SCH ×3 (02:50→21:36)
[2020-12-30] MEDS: PANTOPRAZOLE 40 MG TABLET PO SCH (07:50)
[2020-12-30] MEDS: Acetaminophen-Codeine 300-30mg TAB PO PRN ×2 (07:54→20:30)
[2020-12-30] MEDS: NICOTINE 14MG/24HR PATCH TRANSDERM SCH (08:36)
--- NOTE | 2020-12-30 08:57 | P.PN ---
Subjective Progress Note Date: 12/29/20 65-year-old female came into hospital with complaints of pain and swelling in the right upper extremity after dog bite which happened about 3-4 days ago. Patient has significant pain and redness and swelling. Patient was started on Zosyn probably can be switched to Unasyn. Because of significant swelling in involvement of the hand patient was admitted. Patient was given oral antibiotics was discharged from came back with worsening symptoms subsequently admitted with orthopedic and infectious disease consult. Patient is septic with the leukocytosis and fever. 12/27/2020 Patient is seen in follow-up with no acute overnight issues. Right hand continues to have swelling and redness noted although patient states the swelling is slightly improved. Patient continues to be unable to fully squeeze hand closed although does have sensation to all digits. Patient is maintained on IV antibiotics in the form of Unasyn and infectious disease is following. Cultures pending at this time and awaiting for finalization determine antibiotic coverage upon discharge. She was seen and evaluated by orthopedic surgery recommending conservative management and no surgical interventions needed at this time. Instructed to continue to elevate right upper extremity on a pillow as she has been doing. 12/28/2020 Patient is seen and evaluated this morning with no acute overnight issues. Localization of heat shows no improvement to the right hand with continued swelling and mild erythema noted. Patient states she is unable to squeeze her hand and feels her skin is more tight. Patient has been elevating the extremity although has not been applying ice and/or heat. Will initiate moist heat and mo nitor closely. [place] disease following as patient is maintained on IV antibiotic therapy in the form of Unasyn. Cultures resulted showing normal eric with no growth. Patient has had intermittent low-grade 99.9 temp noted. 12/29/2020 Patient is seen this morning and continues to have right hand swelling and tenderness of the ring finger and has been moving her fingers although is unable to completely close her fist. Patient continues to have erythema and swelling noted. Patient is currently maintained on IV antibiotics in the form of Unasyn and will continue at this time. Infectious disease is following. Surgery also following and recommending conservative treatment with no surgical intervention do at this time. Cultures from the wound remain negative. Patient continues to have some tingling sensation that radiates to the wrist and forearm when moving the right hand. Patient denies any numbness to the hand. Currently denies any chest pain, shortness of breath, or palpitations. Patient is afebrile. Patient is tolerating diet with no reports of nausea or vomiting and is going to the bathroom with no dysuria retention. Patient is applying moist heat to the right hand. CT of the hand wrist and forearm being ordered. Review of systems: Constitutional: No reports of fatigue, fever, or chills Cardiovascular: No reports of chest pain or palpitations Respiratory: No reports of shortness of breath or cough GI: No reports of nausea, vomiting, or diarrhea : No reports of dysuria or retention Neurovascular: No reports of weakness or numbness, reports right hand swelling and tenderness with some redness although slightly improved, no reports of tingling or numbness of the right hand All medications have been reviewed Active Medications Acetaminophen (Acetaminophen Tab 325 Mg Tab) 650 mg PO Q6HR PRN PRN Reason: Mild Pain or Fever > 100.5 Last Admin: 12/25/20 21:50 Dose: 650 mg Documented by: Acetaminophen/Codeine Phosphate (Acetaminophen-Codeine 300-30mg Tab) 1 each PO Q6HR PRN PRN Reason: Moderate Pain Last Admin: 12/30/20 07:54 Dose: 1 each Documented by: Hydrocodone Bitart/Acetaminophen (Hydrocodone/Apap 5-325mg 1 Each Tab) 1 each PO Q4HR PRN PRN Reason: Pain Last Admin: 12/28/20 20:29 Dose: 1 each Documented by: Calcium Carbonate/Glycine (Calcium Carbonate 500 Mg Chewable) 500 mg PO QID PRN PRN Reason: Heartburn Last Admin: 12/28/20 08:08 Dose: 500 mg Documented by: Sodium Chloride (Saline 0.9%) 1,000 mls @ 100 mls/hr IV .Q10H [facility] Last Admin: 12/30/20 02:50 Dose: 100 mls/hr Documented by: Ampicillin Sodium/Sulbactam (Sodium 3 gm/ Sodium Chloride) 100 mls @ 200 mls/hr IVPB Q6HR [facility] Last Admin: 12/30/20 06:07 Dose: 200 mls/hr Documented by: Morphine Sulfate (Morphine Sulfate 4 Mg/Ml Syringe) 4 mg IV Q4HR PRN PRN Reason: Severe Pain Last Admin: 12/28/20 16:04 Dose: 4 mg Documented by: Naloxone HCl (Naloxone 0.4 Mg/Ml 1 Ml Vial) 0.2 mg IV Q2M PRN PRN Reason: Opioid Reversal Nicotine (Nicotine 14mg/24hr Patch) 1 patch TRANSDERM DAILY [facility] Last Admin: 12/30/20 08:36 Dose: 1 patch Documented by: Ondansetron HCl (Ondansetron 4 Mg/2 Ml Vial) 4 mg IVP Q8HR PRN PRN Reason: Nausea And Vomiting Pantoprazole Sodium (Pantoprazole 40 Mg Tablet) 40 mg PO AC-BRKFST [facility] Last Admin: 12/30/20 07:50 Dose: 40 mg Documented by: Objective - Vital Signs Vital signs: Vital Signs Temp 98.3 F 12/29/20 07:00 Pulse 92 12/29/20 07:00 Resp 16 12/29/20 07:00 BP 126/71 12/29/20 07:00 Pulse Ox 93 L 12/29/20 07:00 Intake & Output 12/28/20 12/29/20 12/29/20 18:59 06:59 18:59 Intake Total 200 Balance 200 Intake: Oral 200 Other: Voiding Method Toilet # Voids 2 2 - Exam GENERAL: The patient is alert and oriented x3, not in any acute distress. Well developed, well nourished. Temp is 98.3F, pulse is 92, respirations are 16, blood pressure is 126/71, oxygen saturation is 97% on room air HEENT: Pupils are round and equally reacting to light. EOMI. No scleral icterus. No conjunctival pallor. Normocephalic, atraumatic. No pharyngeal erythema. No thyromegaly. CARDIOVASCULAR: S1 and S2 muffled. PULMONARY: Diminished breath sounds bilaterally with no wheezing or rhonchi noted. ABDOMEN: Soft, nontender, nondistended, normoactive bowel sounds. No palpable organomegaly. MUSCULOSKELETAL: No joint swelling or deformity. EXTREMITIES: No cyanosis, clubbing, or pedal edema. Patient has swelling and erythema of the right hand with significant localization of temperature, tenderness on palpation, redness and swelling slightly improved NEUROLOGICAL: Gross neurological examination did not reveal any focal deficits. SKIN: No rashes. - Labs CBC & Chem 7: 12/27/20 11:16 12/27/20 11:16 Labs: Microbiology - Last 24 Hours (Table) 12/25/20 18:22 Blood Culture - Preliminary Blood No Growth after 72 hours Assessment and Plan Assessment: -Sepsis: Secondary to cellulitis infection of the right hand secondary to a dog bite -Leukocytosis secondary to sepsis as mentioned above, improved -Nicotine use: Counseling was provided -DVT prophylaxis -GI prophylaxis Plan: Continue with IV antibiotic therapy. Infectious disease is following. cultures resulted showing normal skin eric with no growth noted. Continue with pain management. Instructed the patient to continue to elevate right upper extremity on a pillow. Continue with moist heat to the right hand and may alternate with cold packs. Orthopedic surgery also following recommending conservative management with no surgical intervention at this time. Patient continues to have right hand tenderness, erythema, and swelling noted and patient is also having some discomfort in the right wrist and up the forearm and ordered a CT of this area showing mild to moderate subcutaneous edema along the proximal to mid forearm gratis along the dorsal surface with no well-formed abscess, focal myositis both present involving the muscles surrounding the second and third metacarpal heads with asymmetric third MCP joint effusion/synovitis with no convincing evidence for acute septic arthritis currently. Will discuss with infectious disease about the possibility of continuing IV antibiotic therapy in the outpatient setting. Possible discharge in 24 hours
--- NOTE | 2020-12-30 17:13 | P.PN ---
Subjective Progress Note Date: 12/30/20 65-year-old female came into hospital with complaints of pain and swelling in the right upper extremity after dog bite which happened about 3-4 days ago. Patient has significant pain and redness and swelling. Patient was started on Zosyn probably can be switched to Unasyn. Because of significant swelling in involvement of the hand patient was admitted. Patient was given oral antibiotics was discharged from came back with worsening symptoms subsequently admitted with orthopedic and infectious disease consult. Patient is septic with the leukocytosis and fever. 12/27/2020 Patient is seen in follow-up with no acute overnight issues. Right hand continues to have swelling and redness noted although patient states the swelling is slightly improved. Patient continues to be unable to fully squeeze hand closed although does have sensation to all digits. Patient is maintained on IV antibiotics in the form of Unasyn and infectious disease is following. Cultures pending at this time and awaiting for finalization determine antibiotic coverage upon discharge. She was seen and evaluated by orthopedic surgery recommending conservative management and no surgical interventions needed at this time. Instructed to continue to elevate right upper extremity on a pillow as she has been doing. 12/28/2020 Patient is seen and evaluated this morning with no acute overnight issues. Localization of heat shows no improvement to the right hand with continued swelling and mild erythema noted. Patient states she is unable to squeeze her hand and feels her skin is more tight. Patient has been elevating the extremity although has not been applying ice and/or heat. Will initiate moist heat and mo nitor closely. [place] disease following as patient is maintained on IV antibiotic therapy in the form of Unasyn. Cultures resulted showing normal eric with no growth. Patient has had intermittent low-grade 99.9 temp noted. 12/29/2020 Patient is seen this morning and continues to have right hand swelling and tenderness of the ring finger and has been moving her fingers although is unable to completely close her fist. Patient continues to have erythema and swelling noted. Patient is currently maintained on IV antibiotics in the form of Unasyn and will continue at this time. Infectious disease is following. Surgery also following and recommending conservative treatment with no surgical intervention do at this time. Cultures from the wound remain negative. Patient continues to have some tingling sensation that radiates to the wrist and forearm when moving the right hand. Patient denies any numbness to the hand. Currently denies any chest pain, shortness of breath, or palpitations. Patient is afebrile. Patient is tolerating diet with no reports of nausea or vomiting and is going to the bathroom with no dysuria retention. Patient is applying moist heat to the right hand. CT of the hand wrist and forearm being ordered. 12/30/2020 Patient is seen and evaluated in follow-up continues to have right hand swelling and tenderness. Erythema slightly improved. Patient has been using alternate heat and cold packs and instructed the patient to continue with just cold packs as needed for comfort. Patient to continue elevating the extremity. Discussed with infectious disease about the possibility of needing IV antibiotic therapy in the outpatient setting and receiving a midline. Patient is very skeptical and nervous about receiving a midline or PICC line placement from previous bad experiences within family members. Had a lengthy discussion with the patient at the bedside about the importance of antibiotic therapy in her situation with the CT findings of focal myositis. Patient is very tearful and will continue to monitor overnight on continued IV antibiotic therapy in the form of Unasyn and will reevaluate in the morning. She denies any chest pain, palpitations, or shortness of breath. Patient is afebrile. Review of systems: Constitutional: No reports of fatigue, fever, or chills Cardiovascular: No reports of chest pain or palpitations Respiratory: No reports of shortness of breath or cough GI: No reports of nausea, vomiting, or diarrhea : No reports of dysuria or retention Neurovascular: No reports of weakness or numbness, reports right hand swelling and tenderness with some redness although slightly improved, no reports of tingling or numbness of the right hand All medications have been reviewed Active Medications Acetaminophen (Acetaminophen Tab 325 Mg Tab) 650 mg PO Q6HR PRN PRN Reason: Mild Pain or Fever > 100.5 Last Admin: 12/25/20 21:50 Dose: 650 mg Documented by: Acetaminophen/Codeine Phosphate (Acetaminophen-Codeine 300-30mg Tab) 1 each PO Q6HR PRN PRN Reason: Moderate Pain Last Admin: 12/30/20 07:54 Dose: 1 each Documented by: Hydrocodone Bitart/Acetaminophen (Hydrocodone/Apap 5-325mg 1 Each Tab) 1 each PO Q4HR PRN PRN Reason: Pain Last Admin: 12/28/20 20:29 Dose: 1 each Documented by: Calcium Carbonate/Glycine (Calcium Carbonate 500 Mg Chewable) 500 mg PO QID PRN PRN Reason: Heartburn Last Admin: 12/28/20 08:08 Dose: 500 mg Documented by: Sodium Chloride (Saline 0.9%) 1,000 mls @ 100 mls/hr IV .Q10H [facility] Last Admin: 12/30/20 02:50 Dose: 100 mls/hr Documented by: Ampicillin Sodium/Sulbactam (Sodium 3 gm/ Sodium Chloride) 100 mls @ 200 mls/hr IVPB Q6HR [facility] Last Admin: 12/30/20 13:07 Dose: 200 mls/hr Documented by: Morphine Sulfate (Morphine Sulfate 4 Mg/Ml Syringe) 4 mg IV Q4HR PRN PRN Reason: Severe Pain Last Admin: 12/28/20 16:04 Dose: 4 mg Documented by: Naloxone HCl (Naloxone 0.4 Mg/Ml 1 Ml Vial) 0.2 mg IV Q2M PRN PRN Reason: Opioid Reversal Nicotine (Nicotine 14mg/24hr Patch) 1 patch TRANSDERM DAILY [facility] Last Admin: 12/30/20 08:36 Dose: 1 patch Documented by: Ondansetron HCl (Ondansetron 4 Mg/2 Ml Vial) 4 mg IVP Q8HR PRN PRN Reason: Nausea And Vomiting Pantoprazole Sodium (Pantoprazole 40 Mg Tablet) 40 mg PO AC-BRKFST [facility] Last Admin: 12/30/20 07:50 Dose: 40 mg Documented by: Objective - Vital Signs Vital signs: Vital Signs Temp 98.3 F 12/30/20 15:00 Pulse 78 12/30/20 15:00 Resp 16 12/30/20 15:00 BP 131/73 12/30/20 15:00 Pulse Ox 95 12/30/20 15:00 Intake & Output 12/29/20 12/30/20 12/30/20 18:59 06:59 18:59 Intake Total 400 Balance 400 Intake: Oral 400 Other: Voiding Method Toilet # Voids 1 2 3 - Exam GENERAL: The patient is alert and oriented x3, not in any acute distress. Well developed, well nourished. Temp is 98.3F, pulse is 78, respirations are 16, blood pressure is 131/73, oxygen saturation is 95% on room air HEENT: Pupils are round and equally reacting to light. EOMI. No scleral icterus. No conjunctival pallor. Normocephalic, atraumatic. No pharyngeal erythema. No thyromegaly. CARDIOVASCULAR: S1 and S2 muffled. PULMONARY: Diminished breath sounds bilaterally with no wheezing or rhonchi noted. ABDOMEN: Soft, nontender, nondistended, normoactive bowel sounds. No palpable organomegaly. MUSCULOSKELETAL: No joint swelling or deformity. EXTREMITIES: No cyanosis, clubbing, or pedal edema. Patient has swelling and erythema of the right hand with significant localization of temperature, tenderness on palpation, redness and swelling slightly improved from yesterday NEUROLOGICAL: Gross neurological examination did not reveal any focal deficits. SKIN: No rashes. - Labs CBC & Chem 7: 12/27/20 11:16 12/27/20 11:16 Labs: Microbiology - Last 24 Hours (Table) 12/25/20 18:22 Blood Culture - Preliminary Blood No Growth after 96 hours Assessment and Plan Assessment: -Sepsis: Secondary to cellulitis infection of the right hand secondary to a dog bite -Focal myositis involving the muscles surrounding the second and third metacarpal heads with asymmetric third MCP joint effusion/synovitis is noted on CT -Leukocytosis secondary to sepsis as mentioned above, improved -Nicotine use: Counseling was provided -DVT prophylaxis -GI prophylaxis Plan: Continue with IV antibiotic therapy. Infectious disease is following. cultures resulted showing normal skin eric with no growth noted. Continue with pain management. Instructed the patient to continue to elevate right upper extremity on a pillow. Continue with cold packs. Orthopedic surgery also following recommending conservative management with no surgical intervention at this time. Patient continues to have right hand tenderness, slight improvement in erythema, and swelling noted and patient is also having some discomfort in the right wrist and up the forearm and ordered a CT of this area showing mild to moderate subcutaneous edema along the proximal to mid forearm gratis along the dorsal surface with no well-formed abscess, focal myositis both present involving the muscles surrounding the second and third metacarpal heads with asymmetric third MCP joint effusion/synovitis with no convincing evidence for acute septic arthritis currently. Patient is very skeptical and hesitant and anxious about receiving a midline her PICC line for IV antibiotic therapy. We'll reevaluate and discuss with infectious disease on discharge antibiotics. Case management following and will work on discharge planning and the possibility of IV antibiotic therapy in the outpatient setting. Possible discharge in 24 hours.
[2020-12-31] MEDS: AMPICILLIN-SULBACTAM 3 GM in SODIUM CHLORIDE 0.9% 100 ML IVPB SCH ×2 (00:02→04:57)
--- NOTE | 2020-12-31 00:53 | PN ---
PROGRESS NOTE DATE OF SERVICE: 12/30/2020 REASON FOR FOLLOWUP: Right hand dog bite cellulitis. INTERVAL HISTORY: The patient is currently afebrile. The patient is breathing comfortably. The patient denies having any chest pain, shortness of breath or cough. No nausea. No vomiting. No abdominal pain. Overall pain and discomfort to the right hand has slightly decreased. No drainage. PHYSICAL EXAMINATION: Blood pressure 135/70 with a pulse of 74, temperature 98.3. He is 96% on room air. General description is an elderly female lying in bed in no distress. Respiratory system: Unlabored breathing. Clear to auscultation anteriorly. Heart S1, S2. Regular rate and rhythm. Abdomen soft, no tenderness. Right hand did have swelling. Redness has improved. No drainage. LABS: No new labs have been obtained today. Culture has been negative. DIAGNOSTIC IMPRESSION AND PLAN: Patient with right hand dog bite cellulitis with concern for underlying myositis on the basis of CT, but no drainable abscess. The patient has responded but slowly. Hence, IV antibiotic was recommended to the patient. The patient has multiple questions and apprehension. Those were answered in layman's terms. A few more time was spent with the patient explaining the whole process. Time spent has been more than 25 minutes. She did agree to the IV antibiotics. Midline has been ordered. Antibiotic will transition to Rocephin 2 grams daily and oral Flagyl 500 q.8 hours for 10 days and close outpatient followup. MMODL / IJN: [id number] /
[2020-12-31] MEDS: ACETAMINOPHEN TAB 325 MG TAB PO PRN (05:01)
[2020-12-31] MEDS: NICOTINE 14MG/24HR PATCH TRANSDERM SCH (08:05)
[2020-12-31] MEDS: PANTOPRAZOLE 40 MG TABLET PO SCH (08:05)
[2020-12-31 08:15] VITALS: BP 128/80; PULSE 106; RESP 17; TEMP 97.8
[2020-12-31] MEDS: SODIUM CHLORIDE 0.9% 1,000 ML IV SCH (12:20)
[2020-12-31] MEDS: Acetaminophen-Codeine 300-30mg TAB PO PRN (12:43)
--- NOTE | 2020-12-31 13:57 | PN ---
PROGRESS NOTE DATE OF SERVICE: 12/31/2020 REASON FOR FOLLOWUP: Right hand dog bite cellulitis. INTERVAL HISTORY: The patient is currently afebrile. Patient is breathing comfortably. The right hand pain and swelling have decreased. Currently no open wound or any drainage. No chest pain, shortness of breath or cough. No abdominal pain or diarrhea. PHYSICAL EXAMINATION: Blood pressure is 128/80 with a pulse of 106, temperature is 97.8. She is 93% on room air. General description is an elderly female up in the bed in no distress. RESPIRATORY SYSTEM: Unlabored breathing, clear to auscultation anteriorly. HEART: S1, S2. Regular rate and rhythm. ABDOMEN: Soft, no tenderness. Right hand swelling, redness has improved, no drainage. LABS: No new labs have been obtained today. Local culture negative. Blood culture negative. DIAGNOSTIC IMPRESSION AND PLAN: Patient with right hand dog bite cellulitis in this patient have shown overall clinical improvement on IV Unasyn. Plan is to finish therapy with IV Rocephin 2 grams daily along with oral Flagyl 500 mg q.8 hours for 10 days and close outpatient followup. MMODL / IJN: [id number] /
--- NOTE | 2021-01-01 09:50 | P.DS ---
Providers Date of admission: 12/27/20 15:06 Expected date of discharge: 12/31/20 Attending physician: Denny Olivera MD Consults: 12/25/20 18:20 Consult Physician Urgent Consulting Provider: Tiffanie Hernandez Consult Reason/Comments: Infected dog bite Do you want consulting provider notified?: Yes 12/26/20 08:26 Consult Physician Urgent Consulting Provider: Lu Jin Consult Reason/Comments: antibiotic recommendations, right hand infection Do you want consulting provider notified?: Yes Primary care physician: Elder Delgado [facility] Course: Final diagnosis -Sepsis: Secondary to cellulitis infection of the right hand secondary to a dog bite -Focal myositis involving the muscles surrounding the second and third metacarpal heads with asymmetric third MCP joint effusion/synovitis is noted on CT -Leukocytosis secondary to sepsis as mentioned above, improved -Nicotine use: Counseling was provided -DVT prophylaxis -GI prophylaxis Discharge disposition Patient is being discharged in a stable condition with guarded prognosis to home. Patient will follow-up with Dr. Elder Delgado in the outpatient setting upon discharge. Patient is also instructed to follow-up with infectious disease in the outpatient setting. Patient will continue on oral Flagyl 500 mg 3 times daily along with IV antibiotic in the form of ceftriaxone per infectious disease recommendations. Total time taken is greater than 35 minutes. Hospital course This is a 65-year-old female who was recently admitted with right hand dog bite with failed outpatient antibiotic therapy and was being closely monitored. She was seen and evaluated by orthopedic surgery recommending conservative management with no surgical intervention. Patient was also followed by infectious disease and patient was maintained on Zosyn although slow to improve and continued swelling and tenderness of the right hand. IV antibiotics transitioned to ceftriaxone and patient did receive a midline and will continue with IV antibiotic therapy and outpatient setting. Arrangements have been made case management and [facility]. She will also continue on oral Flagyl 500 mg 3 times daily for 10 days. Patient instructed to follow-up with primary care provider upon discharge along with the wound care clinic in one week. Patient to continue using cold packs as needed to the right hand. Patient also instructed to continue elevating the hand while at rest. Patient did have CT of the hand wrist and forearm which showed mild to moderate subcutaneous edema along the proximal to mid forearm greatest along the dorsal surface with no well-formed abscess noted, and focal myositis both present involving the muscles surrounding the second and third metacarpal heads along with asymmetric third MCP joint effusion/synovitis. Patient did receive tetanus update and report was made to [facility] about the dog bite. Currently no reports of chest pain, shortness of breath, or palpitations. Patient is afebrile. No reports of nausea or vomiting and patient is tolerating diet. Patient is asking to go home today. Patient will be discharged home today. On exam vital signs are stable. Cardio S1, S2 are muffled. Respiratory system shows diminished breath sounds at the bases with no wheezing or rhonchi noted. Abdomen is soft and nontender. Nervous system shows no focal deficits. Please refer to medication reconciliation sheet for a list of medications. Patient Condition at Discharge: Fair Plan - Discharge Summary New Discharge Prescriptions: New Nicotine 14Mg/24Hr Patch [Habitrol] 1 patch TRANSDERM DAILY 30 Days #30 patch HYDROcodone/APAP 5-325MG [[place] 5-325] 1 each PO Q4HR PRN #12 tab PRN Reason: Pain Calcium Carbonate [Tums] 500 mg PO QID PRN chew PRN Reason: Heartburn Acetaminophen Tab [Tylenol] 650 mg PO Q6HR PRN #30 tab PRN Reason: Mild Pain Or Fever > 100.5 metroNIDAZOLE [Flagyl] 500 mg PO TID #30 tab Pantoprazole Sodium [Protonix] 40 mg PO DAILY #30 tablet. cefTRIAXone [Rocephin] 2,000 mg IVPB Q24HR #10 dose Discontinued Amoxicillin/Potassium Clav [Augmentin 875-125 Tablet] 1 tab PO BID 10 Days #20 tab Discharge Medication List Acetaminophen Tab [Tylenol] 650 mg PO Q6HR PRN #30 tab 12/29/20 [Rx] Calcium Carbonate [Tums] 500 mg PO QID PRN chew 12/29/20 [Rx] HYDROcodone/APAP 5-325MG [[place] 5-325] 1 each PO Q4HR PRN #12 tab 12/29/20 [Rx] Nicotine 14Mg/24Hr Patch [Habitrol] 1 patch TRANSDERM DAILY 30 Days #30 patch 12/29/20 [Rx] Pantoprazole Sodium [Protonix] 40 mg PO DAILY #30 tablet. 12/31/20 [Rx] cefTRIAXone [Rocephin] 2,000 mg IVPB Q24HR #10 dose 12/31/20 [Rx] metroNIDAZOLE [Flagyl] 500 mg PO TID #30 tab 12/31/20 [Rx] Follow up Appointment(s)/Referral(s): [facility],[place] [NON-STAFF] - 01/01/21 2:00 pm Lu Jin MD [STAFF PHYSICIAN] - 01/12/21 2:15 pm Elder Delgado MD [Primary Care Provider] - 1-2 days Ambulatory/Diagnostic Orders: Complete Blood Count w/diff [LAB.AMB] Time Frame: 2 Days, Location: None Selected Patient Instructions/Handouts: Animal Bite (GEN), Cellulitis (GEN) Activity/Diet/Wound Care/Special Instructions: Activity Limited until follow-up Follow-up with primary care provider upon discharge Continue to use heat and elevate right extremity often Continue with Tylenol and/or Motrin for pain and monitor for fevers Continue antibiotics until finished, Continue with IV antibiotic therapy per infectious disease recommendations Follow-up with infectious disease wound clinic in the outpatient setting Discharge Disposition: HOME SELF-CARE
== END 2020-12-31 14:05 | disposition home or self-care (01) | DRG 872 ==
LOC: EC 17:48 → 6NMEDSUR 18:58 → OBSVTOIN 12-27 15:06
PROVIDERS: ADMIT Internal Medicine; ATTEND Internal Medicine
PROC: 05HF33Z Insertion of Infusion Device into Left Cephalic Vein, Percutaneous Approach (ICD-10-PCS; principal; 2020-12-31 10:00)
DX: A41.9 Sepsis, unspecified organism (principal); M60.041 Infective myositis, right hand; L03.113 Cellulitis of right upper limb; E11.9 Type 2 diabetes mellitus without complications; Z20.822 Contact with and (suspected) exposure to COVID-19; F17.200 Nicotine dependence, unspecified, uncomplicated; M65.9 Synovitis and tenosynovitis, unspecified; S61.451A Open bite of right hand, initial encounter; Z71.6 Tobacco abuse counseling; W54.0XXA Bitten by dog, initial encounter; Z88.6 Allergy status to analgesic agent
CPT/HCPCS: 36410; 36415; 76937; 80048; 80053; 83605; 85025; 86140; 87040; 87070; 87205; 87635; 96365; 99285

== ENCOUNTER 2021-01-12 15:25 | Inpatient (IN) | payer MEDICARE ==
--- NOTE | 2021-01-12 16:51 | ED ---
Skin/Abscess/FB HPI - General Chief complaint: Skin/Abscess/Foreign Body Stated complaint: R hand infection Time Seen by Provider: 01/12/21 16:01 Source: patient Mode of arrival: ambulatory Limitations: no limitations - History of Present Illness Initial comments: Patient is a 65-year-old female presenting to the emergency department with concerns of an increasing right hand infection. Patient states she was bit by a dog on December 24, has been on IV antibiotics for the last 10 days, 2 g of Rocephin. Patient states she has been seen Dr. Jin for this and did have a consult with Dr. Rodrigues. Patient states she had her follow-up with Dr. Jin today who recommended she go into the ER for IV antibiotics and consult to Dr. Rodrigues for possible washout. Patient denies having any fevers or chills, no nausea or vomiting. She states her hand continues to be swollen, warm to the touch and painful. She denies any chest pain or shortness of breath. She has no further complaints at this time. Upon arrival to the ER, her vital signs are stable. - Related Data Previous Rx's Medication Instructions Recorded Pantoprazole Sodium [Protonix] 40 mg PO DAILY #30 tablet. 12/31/20 Allergies Allergy/AdvReac Type Severity Reaction Status Date / Time ibuprofen [From Motrin] Allergy Dyspnea Verified 01/12/21 16:58 Review of Systems ROS Statement: Those systems with pertinent positive or pertinent negative responses have been documented in the HPI. ROS Other: All systems not noted in ROS Statement are negative. Past Medical History Past Medical History: No Reported History History of Any Multi-Drug Resistant Organisms: None Reported Past Surgical History: Tonsillectomy Past Psychological History: No Psychological Hx Reported Smoking Status: Former smoker Past Alcohol Use History: Occasional Past Drug Use History: None Reported General Exam - General Exam Comments Initial Comments: GENERAL: Patient is well-developed and well-nourished. Patient is nontoxic and in no acute distress. HEAD: Atraumatic, normocephalic. EYES: Pupils equal round and reactive to light, extraocular movements intact, sclera anicteric, conjunctiva are normal. Eyelids were unremarkable. ENT: TMs normal, nares patent, oropharynx clear without exudates. Moist mucous membranes. NECK: Normal range of motion, supple without lymphadenopathy or JVD. LUNGS: Unlabored respirations. Breath sounds clear to auscultation bilaterally and equal. No wheezes rales or rhonchi. HEART: Regular rate and rhythm without murmurs, rubs or gallops. ABDOMEN: Soft, nontender, normoactive bowel sounds. No guarding, no rebound. No masses appreciated. : Deferred MUSCULOSKELETAL: Patient has swelling, redness of the dorsal aspect of the right hand over the second through third MCP joints. She does have full range of motion with stiffness at full extension. Rest of extremities with adequate strength and normal range of motion, no pitting or edema. No clubbing or cyanosis. NEUROLOGICAL: Patient is alert and oriented x 3. Motor and sensory are also intact. Cranial nerves II through XII grossly intact. Symmetrical smile. Normal speech, normal gait. PSYCH: Normal mood, normal affect. SKIN: Warm, Dry, normal turgor, no rashes/ See above regarding right hand. Limitations: no limitations Course Vital Signs 01/12/21 01/12/21 15:31 18:25 Temperature 97.8 F Pulse Rate 83 88 Respiratory 18 18 Rate Blood Pressure 119/71 96/54 O2 Sat by Pulse 99 99 Oximetry Medical Decision Making - Medical Decision Making Patient is a 65 -year-old female here for a right hand infection. She was bit by a dog on December 24 and has been seeing Dr. Jin guardireji and ongoing right hand infection. She currently finished a 10 day course of 2 g of Rocephin IV daily. Patient had a follow-up today and Dr. Jin the patient to come back to the ER for admission for further recommendations from orthopedics and to continue with IV antibiotics. Her vitals are stable, afebrile. Her white count is normal. I did speak with Dr. Cuate Rodrigues who agreed to consult with the patient, patient will be admitted to Dr. Pinon's group, consulted Dr. Jin as well. Patient is agreement to this plan of care. Case discussed with Dr. wolf. - Lab Data Result diagrams: 01/12/21 16:55 01/12/21 16:55 Lab Results 01/12/21 01/12/21 01/12/21 Range/Units 16:55 16:55 17:27 WBC 5.2 (3.8-10.6) k/uL RBC 4.12 (3.80-5.40) m/uL Hgb 13.3 (11.4-16.0) gm/dL Hct 41.3 (34.0-46.0) % MCV 100.0 (80.0-100.0) fL MCH 32.2 (25.0-35.0) pg MCHC 32.2 (31.0-37.0) g/dL RDW 13.5 (11.5-15.5) % Plt Count 425 D (150-450) k/uL MPV 7.6 Neutrophils % 64 % Lymphocytes % 22 % Monocytes % 7 % Eosinophils % 5 % Basophils % 1 % Neutrophils # 3.4 (1.3-7.7) k/uL Lymphocytes # 1.1 (1.0-4.8) k/uL Monocytes # 0.3 (0-1.0) k/uL Eosinophils # 0.3 (0-0.7) k/uL Basophils # 0.1 (0-0.2) k/uL ESR 33 H (0-20) mm/hr Sodium 135 L (137-145) mmol/L Potassium 4.5 (3.5-5.1) mmol/L Chloride 102 (98-107) mmol/L Carbon Dioxide 27 (22-30) mmol/L Anion Gap 6 mmol/L BUN 17 (7-17) mg/dL Creatinine 0.53 (0.52-1.04) mg/dL Est GFR (CKD-EPI)AfAm >90 (>60 ml/min/1.73 sqM) Est GFR (CKD-EPI)NonAf >90 (>60 ml/min/1.73 sqM) Glucose 97 (74-99) mg/dL Calcium 9.1 (8.4-10.2) mg/dL Total Bilirubin 0.5 (0.2-1.3) mg/dL AST 28 (14-36) U/L ALT 16 (4-34) U/L Alkaline Phosphatase 90 (38-126) U/L C-Reactive Protein <5.0 (<10.0) mg/L Total Protein 7.0 (6.3-8.2) g/dL Albumin 4.4 (3.5-5.0) g/dL Coronavirus (PCR) (Not Detectd) 01/12/21 Range/Units 18:18 WBC (3.8-10.6) k/uL RBC (3.80-5.40) m/uL Hgb (11.4-16.0) gm/dL Hct (34.0-46.0) % MCV (80.0-100.0) fL MCH (25.0-35.0) pg MCHC (31.0-37.0) g/dL RDW (11.5-15.5) % Plt Count (150-450) k/uL MPV Neutrophils % % Lymphocytes % % Monocytes % % Eosinophils % % Basophils % % Neutrophils # (1.3-7.7) k/uL Lymphocytes # (1.0-4.8) k/uL Monocytes # (0-1.0) k/uL Eosinophils # (0-0.7) k/uL Basophils # (0-0.2) k/uL ESR (0-20) mm/hr Sodium (137-145) mmol/L Potassium (3.5-5.1) mmol/L Chloride (98-107) mmol/L Carbon Dioxide (22-30) mmol/L Anion Gap mmol/L BUN (7-17) mg/dL Creatinine (0.52-1.04) mg/dL Est GFR (CKD-EPI)AfAm (>60 ml/min/1.73 sqM) Est GFR (CKD-EPI)NonAf (>60 ml/min/1.73 sqM) Glucose (74-99) mg/dL Calcium (8.4-10.2) mg/dL Total Bilirubin (0.2-1.3) mg/dL AST (14-36) U/L ALT (4-34) U/L Alkaline Phosphatase (38-126) U/L C-Reactive Protein (<10.0) mg/L Total Protein (6.3-8.2) g/dL Albumin (3.5-5.0) g/dL Coronavirus (PCR) Not Detected (Not Detectd) Disposition Clinical Impression: Dog bite of right hand with infection, Failure of outpatient treatment Disposition: ADMITTED IP TO THIS [facility] Condition: Stable Decision Date: 01/12/21 Decision Time: 18:46
[2021-01-12 17:04] LABS: Basophils # (A) 0.1 k/uL (0-0.2); Basophils % (A) 1 %; Eosinophils # (A) 0.3 k/uL (0-0.7); Eosinophils % (A) 5 %; HCT 41.3 % (34.0-46.0); HGB 13.3 gm/dL (11.4-16.0); Lymphocytes # (A) 1.1 k/uL (1.0-4.8); Lymphocytes % (A) 22 %; MCH 32.2 pg (25.0-35.0); MCHC 32.2 g/dL (31.0-37.0); Mean Platelet Volume 7.6; Monocytes # (A) 0.3 k/uL (0-1.0); Monocytes % (A) 7 %; Neutrophils # (A) 3.4 k/uL (1.3-7.7); Neutrophils % (A) 64 %; RBC 4.12 m/uL (3.80-5.40); RDW 13.5 % (11.5-15.5); WBC 5.2 k/uL (3.8-10.6)
[2021-01-12 17:09] LABS: Platelet Count 425 k/uL (150-450)
[2021-01-12 17:19] LABS: ALT 16 U/L (4-34); AST 28 U/L (14-36); African American GFR (CKD) >90 (>60 ml/min/1.73 sqM); Albumin 4.4 g/dL (3.5-5.0); Alkaline Phosphatase 90 U/L (38-126); Anion Gap 6 mmol/L; Blood Urea Nitrogen 17 mg/dL (7-17); C Reactive Protein <5.0 mg/L (<10.0); Calcium 9.1 mg/dL (8.4-10.2); Carbon Dioxide 27 mmol/L (22-30); Chloride 102 mmol/L (98-107); Glucose 97 mg/dL (74-99); Non-African American GFR(CKD) >90 (>60 ml/min/1.73 sqM); Potassium 4.5 mmol/L (3.5-5.1); Sodium 135 mmol/L (137-145); Total Bilirubin 0.5 mg/dL (0.2-1.3)
[2021-01-12] MEDS ORDERED: ONDANSETRON 4 MG/2 ML VIAL IVP PRN (18:39)
[2021-01-12] MEDS ORDERED: NALOXONE 0.4 MG/ML 1 ML VIAL IV PRN (18:39)
[2021-01-12] MEDS: AMPICILLIN-SULBACTAM 3 GM in SODIUM CHLORIDE 0.9% 100 ML IVPB SCH (23:34)
[2021-01-13] MEDS ORDERED: CALCIUM CARBONATE 500 MG CHEWABLE PO PRN
[2021-01-13] MEDS: AMPICILLIN-SULBACTAM 3 GM in SODIUM CHLORIDE 0.9% 100 ML IVPB SCH ×4 (06:14→23:58)
[2021-01-13] MEDS: PANTOPRAZOLE 40 MG TABLET PO SCH (09:27)
--- NOTE | 2021-01-13 12:40 | P.HPIM ---
History of Present Illness 65-year-old female presenting to the emergency department with concerns of an increasing right hand infection. Patient states she was bit by a dog on December 24, has been on IV antibiotics for the last 10 days, 2 g of Rocephin. Patient states she has been seen Dr. Jin for this and did have a consult with Dr. Rodrigues. Patient states she had her follow-up with Dr. Jin yesterday who recommended she go into the ER for IV antibiotics and consult to Dr. Rodrigues for possible debridement. Patient denies having any fevers or chills, no nausea or vomiting. She states her hand continues to be swollen, warm to the touch and painful. She denies any chest pain or shortness of breath. She has no further complaints at this time. Patient was started on Unasyn here. Review of Systems REVIEW OF SYSTEMS: CONSTITUTIONAL: No fever, no malaise, no fatigue. HEENT: No recent visual problems or hearing problems. Denied any sore throat. CARDIOVASCULAR: No chest pain, orthopnea, PND, no palpitations, no syncope. PULMONARY: No shortness of breath, no cough, no hemoptysis. GASTROINTESTINAL: No diarrhea, no nausea, no vomiting, no abdominal pain. NEUROLOGICAL: No headaches, no weakness, no numbness. HEMATOLOGICAL: Denies any bleeding or petechiae. GENITOURINARY: Denies any burning micturition, frequency, or urgency. MUSCULOSKELETAL/RHEUMATOLOGICAL: As mentioned in HPI ENDOCRINE: Denies any polyuria or polydipsia. The rest of the 14-point review of systems is negative. Past Medical History Past Medical History: No Reported History Additional Past Medical History / Comment(s): asthma as a child History of Any Multi-Drug Resistant Organisms: None Reported Past Surgical History: Tonsillectomy Past Anesthesia/Blood Transfusion Reactions: No Reported Reaction Past Psychological History: No Psychological Hx Reported Smoking Status: Former smoker Past Alcohol Use History: Occasional Past Drug Use History: None Reported - Past Family History Mother Family Medical History: No Reported History Medications and Allergies Home Medications Medication Instructions Recorded Confirmed Type Pantoprazole Sodium [Protonix] 40 mg PO DAILY #30 tablet. 12/31/20 01/12/21 Rx Allergies Allergy/AdvReac Type Severity Reaction Status Date / Time ibuprofen [From Motrin] Allergy Dyspnea Verified 01/12/21 16:58 Physical Exam Vitals: Vital Signs Temp Pulse Pulse Resp BP BP Pulse Ox 01/13/21 08:00 97.7 F 90 18 94/62 95 01/13/21 02:00 97.4 F L 83 16 99/54 95 01/12/21 21:52 98.5 F 79 18 117/68 95 01/12/21 21:15 98.5 F 79 17 117/68 95 01/12/21 20:13 98.4 F 82 18 94/60 95 01/12/21 18:25 88 18 96/54 99 01/12/21 15:31 97.8 F 83 18 119/71 99 Intake and Output 01/12/21 01/13/21 01/13/21 22:59 06:59 14:59 Intake Total 100 Balance 100 Intake: Intake, IV Titration 100 Amount Ampicillin-Sulbactam 3 gm 100 In Sodium Chloride 0.9% 100 ml @ 200 mls/hr IVPB Q6HR [facility] Rx#:[id number] Other: Voiding Method Toilet # Voids 1 1 Weight 55.338 kg PHYSICAL EXAMINATION: GENERAL: The patient is alert and oriented x3, not in any acute distress. Well developed, well nourished. HEENT: Pupils are round and equally reacting to light. EOMI. No scleral icterus. No conjunctival pallor. Normocephalic, atraumatic. No pharyngeal erythema. No thyromegaly. CARDIOVASCULAR: S1 and S2 present. No murmurs, rubs, or gallops. PULMONARY: Chest is clear to auscultation, no wheezing or crackles. ABDOMEN: Soft, nontender, nondistended, normoactive bowel sounds. No palpable organomegaly. MUSCULOSKELETAL: Redness swelling in the right hand dorsal aspect diffuse and some stiffness and limited range of motion EXTREMITIES: No cyanosis, clubbing, or pedal edema. NEUROLOGICAL: Gross neurological examination did not reveal any focal deficits. SKIN: As mentioned above Results CBC & Chem 7: 01/12/21 16:55 01/12/21 16:55 Labs: Abnormal Lab Results - Last 24 Hours (Table) 01/12/21 01/12/21 Range/Units 16:55 17:27 ESR 33 H (0-20) mm/hr Sodium 135 L (137-145) mmol/L Thrombosis Risk Factor Assmnt - Choose All That Apply Each Factor Represents 1 point: Varicose veins Each Risk Factor Represents 2 Points: Central venous access Thrombosis Risk Factor Assessment Total Risk Factor Score: 3 Thrombosis Risk Factor Assessment Level: Moderate Risk Assessment and Plan Plan: -Right hand infection: Patient had a dog bite, patient can he completed antibiotic therapy with Rocephin patient still has some persistent symptoms isaac use of which orthopedic surgery was consulted and MRI was ordered and patient infectious disease Unasyn will be continued -Gastroesophageal reflux disease: Continue with Protonix
--- NOTE | 2021-01-13 13:22 | P.CNOR ---
History of Present Illness - HPI Consult date: 01/13/21 History of present illness: This is a 65-year-old female who is admitted for evaluation of a right hand infection. Patient states that she was bitten by a dog on December 24 and has been on IV antibiotics for 10 days and following with Dr. Jin. Patient states that her swelling and pain have significantly improved, but she still has some residual swelling to the dorsal aspect of the right hand. Patient states that initially she had small puncture wounds from the bite, but these have completely healed. Patient reports stiffness with motion of the right hand. Patient denies any fever or chills, numbness, weakness, tingling or any worsening symptoms. Review of Systems See HPI. Past Medical History Past Medical History: No Reported History Additional Past Medical History / Comment(s): asthma as a child History of Any Multi-Drug Resistant Organisms: None Reported Past Surgical History: Tonsillectomy Past Anesthesia/Blood Transfusion Reactions: No Reported Reaction Past Psychological History: No Psychological Hx Reported Smoking Status: Former smoker Past Alcohol Use History: Occasional Past Drug Use History: None Reported - Past Family History Mother Family Medical History: No Reported History Medications and Allergies Home Medications Medication Instructions Recorded Confirmed Type Pantoprazole Sodium [Protonix] 40 mg PO DAILY #30 tablet. 12/31/20 01/12/21 Rx Allergies Allergy/AdvReac Type Severity Reaction Status Date / Time ibuprofen [From Motrin] Allergy Dyspnea Verified 01/12/21 16:58 Physical Examination On exam patient is resting comfortably in bed in no acute distress. Patient is alert and oriented 3. There is mild swelling to the dorsal aspect of the right hand nearest to the second and third MCP joints. The area of swelling is firm. There is no fluctuance. There is no erythema or ecchymosis. There is mild tenderness to palpation. Skin is intact. Patient has stiffness with range of motion of the fingers of the right hand. There is mild swelling of the fingers of the right hand. There is no tenderness to palpation over the right wrist. Patient has good range of motion of the right wrist. Sensation intact. Neurovascular status and circulatory status are intact. Results - Labs Labs: Abnormal Lab Results - Last 24 Hours (Table) 01/12/21 01/12/21 Range/Units 16:55 17:27 ESR 33 H (0-20) mm/hr Sodium 135 L (137-145) mmol/L H & H 01/12/21 Range/Units 16:55 Hgb 13.3 (11.4-16.0) gm/dL Hct 41.3 (34.0-46.0) % Result Diagrams: 01/12/21 16:55 01/12/21 16:55 Assessment and Plan (1) Dog bite of right hand with infection Current Visit: Yes Status: Acute Code(s): S61.451A - OPEN BITE OF RIGHT HAND, INITIAL ENCOUNTER; L08.9 - LOCAL INFECTION OF THE SKIN AND SUBCUTANEOUS TISSUE, UNSP; W54.0XXA - BITTEN BY DOG, INITIAL ENCOUNTER SNOMED Code(s): 459032432 (2) Dog bite of right hand Current Visit: No Status: Acute Code(s): S61.451A - OPEN BITE OF RIGHT HAND, INITIAL ENCOUNTER; W54.0XXA - BITTEN BY DOG, INITIAL ENCOUNTER SNOMED Code(s): 296340794 Plan: 1. Recommend continuation of IV antibiotics. 2. Patient is afebrile, her white blood cell count is within normal limits and she is well-appearing. Patient states that her symptoms have been improving since being on IV antibiotics. 3. No surgical intervention is planned. We will continue to follow.
--- NOTE | 2021-01-13 17:08 | MR ---
EXAMINATION TYPE: MR hand RT wo/w con DATE OF EXAM: 01/13/2021 COMPARISON: None HISTORY: Dog bite Dec 23 that could be infected, right hand pain, swelling. CONTRAST: Standard multiplanar, multisequence MRI departmental protocol utilizing 5.5 mL intravenous Gadavist g adolinium contrast. On the STIR images there is 20 x 7 mm area of increased signal within the distal shaft of the third m etacarpal. This extends to the MP joints. There is also some mild increased signal in the base of the proximal phalanx of the middle finger. There is surrounding soft tissue increased signal consistent with edema. The flexor tendons of the hand appear intact. There is subcutaneous edema on the dorsum of the distal metacarpals. There is cortical destructive change involving the distal third metacarpal on the later al and anterior aspect. There is mild subcutaneous edema also anterior to the fourth MP joint and fou rth proximal phalanx.. There is diffuse soft tissue enhancement on the contrast images around the distal third metacarpal. IMPRESSION: Destructive changes and abnormal signal in the distal third metacarpal consistent with osteomyelitis. Diffuse soft tissue edema around the third metacarpal. Subcutaneous edema.
--- NOTE | 2021-01-13 19:55 | CONS ---
CONSULTATION DATE OF SERVICE: 01/13/2021 REASON FOR CONSULTATION: Right hand dog bite cellulitis, concern for underlying osteomyelitis. HISTORY OF PRESENT ILLNESS: The patient is a 65-year-old female who did have a dog bite on December 24. The patient was subsequently admitted to this hospital and did have right hand cellulitis. The patient had a superficial which was cultured, and those cultures came back as skin eric. Patient clinically responded to IV Unasyn with overall improvement in swelling and redness, and the patient did have a CT that was suspicious for some myositis. No evidence of any osteomyelitis. The patient was advised IV antibiotic therapy in the form of Rocephin 2 grams daily and oral Flagyl, which the patient was taking. The patient presented to the office yesterday. She was noted to have significant swelling of the right hand which had not improved as expected. Subsequently the patient was advised to go to the hospital to be evaluated by Orthopedics and possible I and D of this area and deep cultures and antibiotic on the basis of those cultures. The patient was evaluated by the ER physician last night. On presentation to the hospital, the patient was afebrile. The patient did have a normal white count and sedimentation rate was 33. CRP came back negative. Kidd PCR was negative. The patient was admitted. Infectious Disease was consulted for further management. I saw the patient morning and did order an MRI of the right hand, which subsequently came back positive with evidence of destructive changes and abnormal signal in the distal third metacarpal consistent with osteomyelitis and diffuse soft tissue edema and subcutaneous edema. The patient was started on Unasyn last night by myself. Orthopedics has seen the patient. REVIEW OF SYSTEMS: Positive points have been mentioned in the HPI. Rest of the systems are negative. PAST MEDICAL HISTORY: Right hand dog bite cellulitis. PAST SURGICAL HISTORY: Tonsillectomy. SOCIAL HISTORY: Remote history of smoking. Rarely drinks. No drug use. FAMILY HISTORY: No pertinent findings noticed. ALLERGIES: IBUPROFEN. MEDICATIONS: The patient is currently on Tylenol, Bluebell, Unasyn 3 grams q.6 hours, Narcan, Zofran, Protonix. PHYSICAL EXAMINATION: Blood pressure 108/63 with a pulse of 89, temperature 97.9. She is 97% on room air. General description is an elderly female lying in bed in no distress. No tachypnea or accessory muscle of respiration use. HEENT: Examination shows no pallor or scleral icterus. Oral mucous membrane is moist. NECK: Trachea is central. No thyromegaly. LUNGS: Unlabored breathing. Clear to auscultation anteriorly. No wheeze or crackle. HEART: S1, S2. Regular rate and rhythm. No added sound. ABDOMEN: Soft. No tenderness. No guarding or rigidity. Right hand dorsum area has swelling but it is slightly improved compared to yesterday. No redness. Neurologically the patient is awake, alert, oriented x3. Mood and affect normal. LABS: Hemoglobin 13.1, white count 5.2, BUN of 17, creatinine 0.53. Liver enzymes normal. Electrolytes are normal. CRP was normal. DIAGNOSTIC IMPRESSION AND PLAN: Patient with right hand swelling and pain which has not improved as expected with IV antibiotic therapy of 2 weeks' duration, now with evidence of underlying osteomyelitis. The patient will need surgical incision and drainage and deep cultures, and on the basis of those cultures we will recommend outpatient IV antibiotic therapy. PLAN: 1. Will discuss further with Orthopedics for I and D of this area and deep cultures, both aerobic and anaerobic. 2. We will keep the patient on Unasyn 3 grams q.6 hours. 3. Will follow clinical condition and culture to further adjust medication if needed. Thank you for this consultation. Will follow this patient along with you. MMODL / IJN: [id number] /
[2021-01-13] MEDS: ACETAMINOPHEN TAB 325 MG TAB PO PRN (20:39)
[2021-01-14] MEDS: AMPICILLIN-SULBACTAM 3 GM in SODIUM CHLORIDE 0.9% 100 ML IVPB SCH ×5 (05:19→23:57)
[2021-01-14] MEDS: PANTOPRAZOLE 40 MG TABLET PO SCH (09:18)
[2021-01-14 10:22] LABS: Basophils % (A) 1 %; Eosinophils # (A) 0.2 k/uL (0-0.7); Eosinophils % (A) 5 %; HCT 39.6 % (34.0-46.0); Lymphocytes # (A) 0.7 k/uL (1.0-4.8); Lymphocytes % (A) 24 %; MCH 33.3 pg (25.0-35.0); MCHC 32.8 g/dL (31.0-37.0); MCV 101.5 fL (80.0-100.0); Macrocytosis Slight; Monocytes # (A) 0.3 k/uL (0-1.0); Monocytes % (A) 10 %; Neutrophils # (A) 1.8 k/uL (1.3-7.7); Neutrophils % (A) 58 %; Platelet Count 364 k/uL (150-450)
[2021-01-14 10:44] LABS: African American GFR (CKD) >90 (>60 ml/min/1.73 sqM); Anion Gap 7 mmol/L; Blood Urea Nitrogen 12 mg/dL (7-17); Calcium 9.4 mg/dL (8.4-10.2); Carbon Dioxide 29 mmol/L (22-30); Chloride 101 mmol/L (98-107); Glucose 143 mg/dL (74-99); Non-African American GFR(CKD) >90 (>60 ml/min/1.73 sqM); Potassium 4.4 mmol/L (3.5-5.1); Sodium 137 mmol/L (137-145)
--- NOTE | 2021-01-14 12:01 | P.PN ---
Subjective Progress Note Date: 01/14/21 65-year-old female presenting to the emergency department with concerns of an increasing right hand infection. Patient states she was bit by a dog on December 24, has been on IV antibiotics for the last 10 days, 2 g of Rocephin. Patient states she has been seen Dr. Jin for this and did have a consult with Dr. Rodrigues. Patient states she had her follow-up with Dr. Jin yesterday who recommended she go into the ER for IV antibiotics and consult to Dr. Rodrigues for possible debridement. Patient denies having any fevers or chills, no nausea or vomiting. She states her hand continues to be swollen, warm to the touch and painful. She denies any chest pain or shortness of breath. She has no further complaints at this time. Patient was started on Unasyn here. 01/14/2021 Patient is seen and evaluated and underwent an MRI of the right hand showing destructive changes and abnormal signal in the distal third metacarpal consistent with osteomyelitis along with diffuse soft tissue edema around the third metacarpal with some subcutaneous edema noted. Orthopedic surgery Dr. Champion following and planning on incision and drainage today. Infectious disease also following and patient does have a PICC line and is maintained on IV Unasyn and will continue at this time. Will await deep cultures to determine discharge antibiotics. Patient is afebrile. Review of systems: Constitutional: No reports of fatigue, fever, or chills Cardiovascular: No reports of chest pain or palpitations Respiratory: No reports of shortness of breath or cough GI: No reports of nausea, vomiting, or diarrhea : No reports of dysuria or retention Neurovascular: No reports of weakness or numbness, reports generalized right hand discomfort when squeezing to make a fist All medications have been reviewed Objective - Vital Signs Vital signs: Vital Signs Temp 97.6 F 01/14/21 01:56 Pulse 70 01/14/21 01:56 Resp 16 01/14/21 01:56 BP 96/60 01/14/21 01:56 Pulse Ox 98 01/14/21 01:56 Intake & Output 01/13/21 01/14/21 01/14/21 18:59 06:59 18:59 Intake Total 900 Balance 900 Intake: Oral 900 Other: Voiding Method Toilet Toilet # Voids 1 1 - Exam GENERAL: The patient is alert and oriented x3, not in any acute distress. Well developed, well nourished. HEENT: Pupils are round and equally reacting to light. EOMI. No scleral icterus. No conjunctival pallor. Normocephalic, atraumatic. No pharyngeal erythema. No thyromegaly. CARDIOVASCULAR: S1 and S2 present. No murmurs, rubs, or gallops. PULMONARY: Chest is clear to auscultation, no wheezing or crackles. ABDOMEN: Soft, nontender, nondistended, normoactive bowel sounds. No palpable organomegaly. MUSCULOSKELETAL: Redness swelling in the right hand dorsal aspect diffuse and some stiffness and limited range of motion at the third metacarpal joint with some continued swelling and tenderness on palpation EXTREMITIES: No cyanosis, clubbing, or pedal edema. NEUROLOGICAL: Gross neurological examination did not reveal any focal deficits. SKIN: As mentioned above - Labs CBC & Chem 7: 01/14/21 09:41 01/14/21 09:41 Labs: Microbiology - Last 24 Hours (Table) 01/12/21 16:54 Blood Culture - Preliminary Blood No Growth after 24 hours 01/12/21 17:07 Blood Culture - Preliminary Blood No Growth after 24 hours Assessment and Plan Assessment: -Right hand infection: Patient had a dog bite with recent hospitalization and was sent home on IV antibiotic therapy. Patient following with wound care in the outpatient setting and was sent here for further evaluation as she continued to have swelling at the third metacarpal joint. MRI suggestive of osteomyelitis as mentioned previously. Patient scheduled to undergo I&D with Dr. Champion orthopedic surgery this afternoon. -Gastroesophageal reflux disease: Continue with Protonix -DVT prophylaxis: Early ambulation -GI prophylaxis: Presently on Protonix -Full code Plan: Patient undergo I&D with orthopedic surgery today and will await report. Deep wound cultures to be collected with the I&D to determine proper discharge antibiotics. Infectious disease is following. Labs this morning within normal limits. White blood count is 3.0 and hemoglobin is 13.0. Current sodium is 137 with a potassium of 4.4 and current creatinine is 0.60.
[2021-01-14] MEDS ORDERED: IV FLUID CONTINUATION 1,000 ML IV ONE (15:05)
[2021-01-14] MEDS ORDERED: DEXAMETHASONE SOD PHOSPHATE 4 MG/ML 1 ML VIAL IVP ONE ×2 (15:25)
[2021-01-14] MEDS ORDERED: ONDANSETRON 4 MG/2 ML VIAL IVP ONE ×2 (15:25)
[2021-01-14] MEDS ORDERED: FAMOTIDINE 20 MG/2 ML VIAL IVP ONE (15:34)
--- NOTE | 2021-01-14 16:05 | PN ---
PROGRESS NOTE DATE OF SERVICE: 01/14/2021 REASON FOR FOLLOWUP: Right hand dog bite cellulitis, underlying osteomyelitis. INTERVAL HISTORY: The patient is currently afebrile. The patient seems slightly tearful and upset; to getting her surgery done here. The patient denies having any chest pain or shortness of breath or cough. No abdominal pain. Pain to the right hand more of a dull aching and throbbing, but no worsening intensity. No abdominal pain or diarrhea. PHYSICAL EXAMINATION: Blood pressure 124/76, pulse of 90, temperature 97.7. She is 100% on room air. General description is an elderly female lying in bed in no distress. RESPIRATORY SYSTEM: Unlabored breathing. Clear to auscultation anteriorly. HEART: S1, S2. Regular rate and rhythm. ABDOMEN: Soft. No tenderness. Right hand still has some swelling. No significant redness. , no drainage. LABS: Hemoglobin is 13 with a white count of 3.0, BUN of 12, creatinine 0.60. Blood culture has been negative. DIAGNOSTIC IMPRESSION AND PLAN: 1. Patient with right hand dog bite, cellulitis, now with evidence of osteomyelitis on the basis of the MRI. The patient needs I and D and deep cultures to determine the infecting pathogen, so the patient cannot get antibiotic more specifically than empirically, as she did not respond to the Rocephin and Flagyl therapy. 2. If unable to have any surgery done here, she will be transferred to a different facility with a hand surgeon involved with the patient and with the I and D. All her questions and concerns were answered. MMODL / IJN: [id number] /
[2021-01-14] MEDS ORDERED: PROPOFOL 10 MG/ML 20 ML VIAL IV ONE (16:21)
[2021-01-14] MEDS ORDERED: fentaNYL (PF) 50 MCG/ML 2 ML AMP ONE (16:21)
[2021-01-14] MEDS ORDERED: HYDROmorphone (PF) 1 MG/ML ONE (16:21)
[2021-01-14] MEDS ORDERED: LIDOCAINE 1% INJ 10MG/ML (20 ML MDV) ONE (16:21)
[2021-01-14] MEDS ORDERED: MIDAZOLAM 2 MG/2 ML VIAL ONE (16:21)
[2021-01-14] MEDS ORDERED: PHENYLEPHRINE-0.9% NACL SYG 1,000 MCG/10 ML SYRINGE ONE (16:21)
[2021-01-14] MEDS ORDERED: LACTATED RINGERS 1,000 ML IV ONE (17:12)
[2021-01-14] MEDS ORDERED: diphenhydrAMINE 50 MG/ML 1 ML VIAL IVP ONE (17:44)
[2021-01-14] MEDS ORDERED: HYDROmorphone 0.5 MG/0.5 ML SYRINGE IVP ONE (17:44)
[2021-01-14] MEDS: SODIUM CHLORIDE 0.9% 1,000 ML IV SCH (20:14)
[2021-01-14] MEDS: HYDROcodone/APAP 5-325MG 1 EACH TAB PO PRN (22:33)
[2021-01-14] MEDS: ACETAMINOPHEN TAB 325 MG TAB PO PRN (22:34)
[2021-01-15] MEDS: HYDROcodone/APAP 5-325MG 1 EACH TAB PO PRN ×5 (04:48→21:33)
[2021-01-15] MEDS: AMPICILLIN-SULBACTAM 3 GM in SODIUM CHLORIDE 0.9% 100 ML IVPB SCH ×4 (05:57→23:48)
[2021-01-15 07:40] LABS: Basophils % (A) 0 %; Eosinophils % (A) 1 %; HCT 34.8 % (34.0-46.0); HGB 11.4 gm/dL (11.4-16.0); Lymphocytes % (A) 19 %; MCH 33.4 pg (25.0-35.0); MCHC 32.8 g/dL (31.0-37.0); MCV 101.9 fL (80.0-100.0); Macrocytosis Slight; Mean Platelet Volume 7.8; Monocytes # (A) 0.4 k/uL (0-1.0); Monocytes % (A) 8 %; Neutrophils # (A) 3.4 k/uL (1.3-7.7); Neutrophils % (A) 69 %; Platelet Count 297 k/uL (150-450); RBC 3.42 m/uL (3.80-5.40); RDW 12.9 % (11.5-15.5); WBC 4.9 k/uL (3.8-10.6)
[2021-01-15 08:06] LABS: African American GFR (CKD) >90 (>60 ml/min/1.73 sqM); Anion Gap 3 mmol/L; Blood Urea Nitrogen 13 mg/dL (7-17); Calcium 8.7 mg/dL (8.4-10.2); Carbon Dioxide 30 mmol/L (22-30); Chloride 102 mmol/L (98-107); Glucose 94 mg/dL (74-99); Non-African American GFR(CKD) >90 (>60 ml/min/1.73 sqM); Potassium 4.6 mmol/L (3.5-5.1); Sodium 135 mmol/L (137-145)
[2021-01-15] MEDS: PANTOPRAZOLE 40 MG TABLET PO SCH (08:54)
--- NOTE | 2021-01-15 08:55 | P.PN ---
Subjective Progress Note Date: 01/15/21 Principal diagnosis: Osteomyelitis right hand. Status post dog bite right hand. This is a 65-year-old female who is admitted for evaluation of a right hand infection. Patient states that she was bitten by a dog on December 24 and has been on IV antibiotics for 10 days and following with Dr. Jin. Patient states that her swelling and pain have significantly improved, but she still has some residual swelling to the dorsal aspect of the right hand. Patient states that initially she had small puncture wounds from the bite, but these have completely healed. Patient reports stiffness with motion of the right hand. Patient denies any fever or chills, numbness, weakness, tingling or any worsening symptoms. MRI revealed a sequestrum around the third metacarpal head with evidence of osteomyelitis. She was taken to the OR on 01/14/2021 for incision and drainage and cultures. Wound VAC was applied. She is stable from an orthotic standpoint. She is afebrile and labs are stable. Objective - Vital Signs Vital signs: Vital Signs Temp 98 F 01/15/21 02:00 Pulse 60 01/15/21 02:00 Resp 14 01/15/21 02:00 BP 98/55 01/15/21 02:00 Pulse Ox 98 01/15/21 02:00 Intake & Output 01/14/21 01/15/21 01/15/21 18:59 06:59 18:59 Intake Total 1180 Output Total 10 500 Balance 1170 -500 Intake: IV 1150 Oral 30 Output: Urine 500 Estimated Blood Loss 10 Other: Voiding Method Toilet Toilet - Exam This is a pleasant 65-year-old female in no acute distress. She is alert and oriented 3. Exam of the right upper extremity reveals that her dressing is intact. Wound VAC is in place. She does not want to wiggle fingers today due to pain. She has normal sensation to the fingertips. Capillary refill is less than 3 seconds. - Labs CBC & Chem 7: 01/15/21 07:17 01/15/21 07:17 Labs: Abnormal Lab Results - Last 24 Hours (Table) 01/14/21 01/14/21 01/15/21 Range/Units 09:41 09:41 07:17 WBC 3.0 L (3.8-10.6) k/uL RBC 3.42 L (3.80-5.40) m/uL MCV 101.5 H 101.9 H (80.0-100.0) fL Lymphocytes # 0.7 L (1.0-4.8) k/uL Sodium (137-145) mmol/L Glucose 143 H (74-99) mg/dL 01/15/21 Range/Units 07:17 WBC (3.8-10.6) k/uL RBC (3.80-5.40) m/uL MCV (80.0-100.0) fL Lymphocytes # (1.0-4.8) k/uL Sodium 135 L (137-145) mmol/L Glucose (74-99) mg/dL Microbiology - Last 24 Hours (Table) 01/14/21 17:05 Wound Culture - Preliminary Hand - Right 01/14/21 17:05 Wound Culture - Preliminary Hand - Right 01/14/21 17:05 Wound Culture - Preliminary Hand - Right 01/14/21 17:05 Anaerobic Culture - Preliminary Hand - Right 01/14/21 17:05 Anaerobic Culture - Preliminary Hand - Right 01/14/21 17:05 Anaerobic Culture - Preliminary Hand - Right 01/14/21 17:05 Wound Culture - Preliminary Hand - Right 01/14/21 17:05 Anaerobic Culture - Preliminary Hand - Right 01/12/21 17:07 Blood Culture - Preliminary Blood No Growth after 48 hours 01/12/21 16:54 Blood Culture - Preliminary Blood No Growth after 48 hours Assessment and Plan (1) Acute osteomyelitis of metacarpal bone of right hand Current Visit: Yes Status: Acute Code(s): M86.141 - OTHER ACUTE OSTEOMYELITIS, RIGHT HAND SNOMED Code(s): 848233016 (2) Dog bite of right hand with infection Current Visit: Yes Status: Acute Code(s): S61.451A - OPEN BITE OF RIGHT HAND, INITIAL ENCOUNTER; L08.9 - LOCAL INFECTION OF THE SKIN AND SUBCUTANEOUS TISSUE, UNSP; W54.0XXA - BITTEN BY DOG, INITIAL ENCOUNTER SNOMED Code(s): 635512498 (3) Failure of outpatient treatment Current Visit: Yes Status: Acute Code(s): Z78.9 - OTHER SPECIFIED HEALTH STATUS SNOMED Code(s): 847941391 Plan: The clinical findings are discussed with the patient. She will continue with the wound VAC and IV antibiotics per infectious disease. I will consult wound care center for management of the wound VAC.
[2021-01-15] MEDS: SODIUM CHLORIDE 0.9% 1,000 ML IV SCH (08:58)
--- NOTE | 2021-01-15 12:35 | P.CONS ---
History of Present Illness - Reason for Consult Consult date: 01/15/21 wound care - History of Present Illness 65-year-old female who is needed for a right hand infection and had an I and D with bone removal due to osteomyelitis yesterday. Patient has an negative pressure wound VAC in place. She'll be scheduled in the wound care center for follow-up with the negative pressure wound VAC. Patient currently is on IV antibiotics. At this time and a pressure room VAC is in place. Review Of Systems: Constitutional: No fever, no chills, no night sweats. No weight change. No weakness, fatigue or lethargy. No daytime sleepiness. Integumentary:reports wounds, no lesions. No rash or pruritus. No unusual bruising. No change in hair or nails. Physical exam: General Appearance: Alert, cooperative, no distress, appears stated age. Skin: See HPI all other Skin color, texture, tugor normal, no rashes or lesions. Neurologic: Alert oriented x3 Assessment/plan: 1. Nonhealing ulceration with bone exposure: Continue with negative pressure wound VAC with black foam. I 150 mmHg continuous suction. Change Tuesday. Patient will need to have home care to continue. Patient will follow-up in the wound care center upon discharge please call for an appointment. When the patient is ready for discharge we will change to absorptive Silver, saline moistened gauze, dry gauze, rolled gauze and secure with paper tape until home care is available to apply the wound VAC. This is discussed in length with the patient. Discussed with patient possible need for hyperbaric oxygen therapy this will further be discussed upon her first visit in the wound care center. Patient verbalized understanding, questions answered. 2. Osteomyelitis 3. Dog bite with right hand infection Thank you for the consultation any questions please contact the wound care center DNP note has been reviewed and discussed with Dr. Tejada and the impression and plan of care has been directed as dictated. Past Medical History Past Medical History: No Reported History Additional Past Medical History / Comment(s): asthma as a child History of Any Multi-Drug Resistant Organisms: None Reported Past Surgical History: Tonsillectomy Past Anesthesia/Blood Transfusion Reactions: No Reported Reaction Past Psychological History: No Psychological Hx Reported Smoking Status: Former smoker Past Alcohol Use History: Occasional Past Drug Use History: None Reported - Past Family History Mother Family Medical History: No Reported History Medications and Allergies Home Medications Medication Instructions Recorded Confirmed Type Pantoprazole Sodium [Protonix] 40 mg PO DAILY #30 tablet. 12/31/20 01/12/21 Rx Allergies Allergy/AdvReac Type Severity Reaction Status Date / Time ibuprofen [From Motrin] Allergy Dyspnea Verified 01/14/21 15:22 Physical Exam Vitals: Vital Signs Temp Pulse Pulse Resp BP Pulse Ox 01/15/21 08:10 97.9 F 60 14 110/57 99 01/15/21 02:00 98 F 60 14 98/55 98 01/14/21 22:19 64 18 101/65 99 01/14/21 21:19 78 14 90/53 98 01/14/21 20:19 81 12 103/68 97 01/14/21 19:49 93 12 111/72 97 01/14/21 19:19 76 14 101/68 97 01/14/21 19:04 65 10 L 96/62 98 01/14/21 18:49 61 12 99/64 99 01/14/21 18:31 97.8 F 68 16 114/67 96 01/14/21 18:01 104 H 16 93/67 100 01/14/21 17:46 98 16 104/62 94 L 01/14/21 17:28 97.6 F 106 H 20 143/76 98 01/14/21 15:14 98.7 F 84 18 116/67 99 01/14/21 14:45 97.7 F 90 16 112/76 100 01/14/21 14:41 97.7 F 90 16 112/76 100 01/14/21 14:22 98.0 F 81 16 101/64 96 Intake and Output 01/14/21 01/15/21 01/15/21 22:59 06:59 14:59 Intake Total 1180 Output Total 210 300 Balance 970 -300 Intake: IV 1150 Oral 30 Output: Urine 200 300 Estimated Blood Loss 10 Other: Voiding Method Toilet Toilet Results CBC & Chem 7: 01/15/21 07:17 01/15/21 07:17 Labs: Abnormal Lab Results - Last 24 Hours (Table) 01/15/21 01/15/21 Range/Units 07:17 07:17 RBC 3.42 L (3.80-5.40) m/uL MCV 101.9 H (80.0-100.0) fL Sodium 135 L (137-145) mmol/L Microbiology - Last 24 Hours (Table) 01/14/21 17:05 Gram Stain - Preliminary Hand - Right Wound Culture - Preliminary 01/14/21 17:05 Gram Stain - Preliminary Hand - Right Wound Culture - Preliminary 01/14/21 17:05 Gram Stain - Preliminary Hand - Right Wound Culture - Preliminary 01/14/21 17:05 Gram Stain - Preliminary Hand - Right Wound Culture - Preliminary 01/14/21 17:05 Anaerobic Culture - Preliminary Hand - Right 01/14/21 17:05 Anaerobic Culture - Preliminary Hand - Right 01/14/21 17:05 Anaerobic Culture - Preliminary Hand - Right 01/14/21 17:05 Anaerobic Culture - Preliminary Hand - Right 01/12/21 17:07 Blood Culture - Preliminary Blood No Growth after 48 hours 01/12/21 16:54 Blood Culture - Preliminary Blood No Growth after 48 hours Assessment and Plan (1) 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 Current Visit: Yes Status: Acute Code(s): L98.494 - NON-PRS CHRONIC ULCER OF SKIN OF SITES W NECROSIS OF BONE SNOMED Code(s): 366781874 (2) Acute osteomyelitis of metacarpal bone of right hand Current Visit: Yes Status: Acute Code(s): M86.141 - OTHER ACUTE OSTEOMYELITIS, RIGHT HAND SNOMED Code(s): 531041677 (3) Dog bite of right hand with infection Current Visit: Yes Status: Acute Code(s): S61.451A - OPEN BITE OF RIGHT HAND, INITIAL ENCOUNTER; L08.9 - LOCAL INFECTION OF THE SKIN AND SUBCUTANEOUS TISSUE, UNSP; W54.0XXA - BITTEN BY DOG, INITIAL ENCOUNTER SNOMED Code(s): 980397229 Time with Patient: Greater than 30
--- NOTE | 2021-01-15 13:29 | P.OP ---
Date of Procedure: 01/14/21 Procedure(s) Performed: PREOPERATIVE DIAGNOSES: 1. Right hand third metacarpal osteomyelitis with sequestrum 2. Right hand third MCP joint septic arthritis 3. Right hand third MCP periarticular soft tissue abscess POSTOPERATIVE DIAGNOSES: 1 Right hand third metacarpal osteomyelitis with sequestrum 2. Right hand third MCP joint septic arthritis 3. Right hand third MCP joint periarticular soft tissue abscess PROCEDURES PERFORMED: 1. Right hand third metacarpal irrigation and debridement with removal of sequestrum 2. Right hand third MCP joint irrigation 3. 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 Martinez is a 65-year-old female with a history of dog bite to her right hand approximately 1 month ago. she was initially treated with local wound care, IV antibiotics, but no bacterial pathogen was able to be isolated from the initial cultures. She was doing well until approximately a few days ago when she started having more swelling, redness, and pain. She never ran a fever. She came in through the emergency room and was admitted to the hospital where an MRI was taken which showed osteomyelitis of the third metacarpal area, signs consistent with a possible MCP joint infection, and a chronic appearing abscess around the third metacarpal head/joint area. There appears to be a sequestrum within the third metacarpal which will require operative removal today. I have discussed with her the planned operation of debridement of this area and have spoken with her about the potential risks and, occasions inclusive of, but not limited to: Bleeding, further infection, scarring, discomfort, blood vessel and/or nerve damage, stiffness of the hand and/or fingers, chronic swelling,bacteremia/septicemia, failure of antibiotic treatment, need for further surgery, and other risks.she is aware of these risks and wishes to proceed with surgery. The consent form has been signed. PROCEDURE: After appropriate consent was obtained from the patient, she was taken to the operative room placed in the supine position, and anesthesia was initiated. General anesthetic was utilized. After confirmation of anesthesia, the right upper crepitus prepped and draped in the usual aseptic fashion using ChloraPrep. No antibiotics were given preoperatively, but Unasyn had been given on the floor since her admission.Timeout was called, confirming patient identity, side, procedure, and availability of equipment. The limb was exsanguinated proximal to the wrist with an Esmarch bandage and the tourniquet was inflated to 200 mmHg. incision was created dorsally over the third metacarpal, starting from the intermetacarpal area and progressing along the length of the third metacarpal for a distance of 6-7 cm. Incision was then deepened bluntly down to the joint capsule of the third MCP joint, where was noted that there was soft tissue here consistent with chronic infection. Material that was obviously infected was excisionally debrided sharply and bluntly using a combination of knife and rongeur. Exposure was performed dorsally over the metacarpal neck with careful retraction of the extensor tendon in an ulnar direction. Pus was noted both on the radial and ulnar aspects of the MCP joint capsule and 2 soft tissue cultures were taken. Thorough irrigation of this pus was performed using copious amounts of lavage with a pulsatile device. Next, a dorsal lateral incision on the radial aspect of the third MCP joint was performed to irrigate the interior of the MCP joint. There did not appear to be gross destruction of the cartilage surfaces of the MCP joint. Next, a quarter-inch window was created within the third metacarpal neck area using a power drill. Pus was noted within the bone and deep cultures were taken 2. Sequestrum was noted within the metacarpal neck area and was removed and sent to pathology in a specimen container. The abscess within the bone measured approximately 2 cm long and encompassed the entire width of the metacarpal head and neck in this region. The area was rinsed with pulsatile saline amounting to approximately 1 L. further thorough pulsatile lavage irrigation was performed using an additional 2 L of saline. Tourniquet was then deflated and nonbleeding tissue was additionally excised using a dissecting scissor. This amounted to some portion of the fascia over the joint capsule, and the interosseous muscles both radially and ulnarly. A small wound VAC sponge was shaped to fit in this cavity and was applied. The skin was thoroughly dried around the incision and the top dressing of the wound VAC was applied and secured into position with additional strips of Tegaderm and clear dressing. Vacuum status was satisfactory despite the difficult position of the wound VAC itself. Further dressing was accomplished using web roll and an Matteo wrap. The patient tolerated the procedure well, and there were no complications and no significant blood loss beyond 10 cc. Anesthesia was successfully completed and removed, and the patient was transferred to recovery room in stable condition. Sponge counts were correct.
--- NOTE | 2021-01-15 15:37 | P.PN ---
Subjective Progress Note Date: 01/15/21 65-year-old female presenting to the emergency department with concerns of an increasing right hand infection. Patient states she was bit by a dog on December 24, has been on IV antibiotics for the last 10 days, 2 g of Rocephin. Patient states she has been seen Dr. Jin for this and did have a consult with Dr. Rodrigues. Patient states she had her follow-up with Dr. Jin yesterday who recommended she go into the ER for IV antibiotics and consult to Dr. Rodrigues for possible debridement. Patient denies having any fevers or chills, no nausea or vomiting. She states her hand continues to be swollen, warm to the touch and painful. She denies any chest pain or shortness of breath. She has no further complaints at this time. Patient was started on Unasyn here. 01/14/2021 Patient is seen and evaluated and underwent an MRI of the right hand showing destructive changes and abnormal signal in the distal third metacarpal consistent with osteomyelitis along with diffuse soft tissue edema around the third metacarpal with some subcutaneous edema noted. Orthopedic surgery Dr. Champion following and planning on incision and drainage today. Infectious disease also following and patient does have a PICC line and is maintained on IV Unasyn and will continue at this time. Will await deep cultures to determine discharge antibiotics. Patient is afebrile. 01/15/2021 Patient is seen this morning and underwent incision and drainage with wound cultures obtained with Dr. Champion orthopedic surgery yesterday. Patient does have a wound VAC applied to the right hand. Dressing is dry and intact. Wound care is also following. Patient is maintained on IV antibiotics and infectious disease following. Will await for culture finalization of the deep tissues to determine discharge antibiotics. Patient states she was told by orthopedic surgery that she will remain in the hospital for 1-2 weeks. Will discuss with orthopedic surgery about the treatment plan. Patient states pain is fairly cont rolled at this time and is able to move her fingers and denies any tingling or numbness. Review of systems: Constitutional: No reports of fatigue, fever, or chills Cardiovascular: No reports of chest pain or palpitations Respiratory: No reports of shortness of breath or cough GI: No reports of nausea, vomiting, or diarrhea : No reports of dysuria or retention Neurovascular: No reports of weakness or numbness All medications have been reviewed Objective - Vital Signs Vital signs: Vital Signs Temp 98 F 01/15/21 02:00 Pulse 60 01/15/21 02:00 Resp 14 01/15/21 02:00 BP 98/55 01/15/21 02:00 Pulse Ox 98 01/15/21 02:00 Intake & Output 01/14/21 01/15/21 01/15/21 18:59 06:59 18:59 Intake Total 1180 Output Total 10 500 Balance 1170 -500 Intake: IV 1150 Oral 30 Output: Urine 500 Estimated Blood Loss 10 Other: Voiding Method Toilet Toilet - Exam GENERAL: The patient is alert and oriented x3, not in any acute distress. Well developed, well nourished. HEENT: Pupils are round and equally reacting to light. EOMI. No scleral icterus. No conjunctival pallor. Normocephalic, atraumatic. No pharyngeal erythema. No thyromegaly. CARDIOVASCULAR: S1 and S2 present. No murmurs, rubs, or gallops. PULMONARY: Chest is clear to auscultation, no wheezing or crackles. ABDOMEN: Soft, nontender, nondistended, normoactive bowel sounds. No palpable organomegaly. MUSCULOSKELETAL: some stiffness and limited range of motion at the third metacarpal joint with some continued swelling and tenderness on palpation, surgical dressing status post I&D is dry and intact and wound VAC noted of the right hand EXTREMITIES: No cyanosis, clubbing, or pedal edema. NEUROLOGICAL: Gross neurological examination did not reveal any focal deficits. SKIN: Wound VAC noted - Labs CBC & Chem 7: 01/15/21 07:17 01/15/21 07:17 Labs: Abnormal Lab Results - Last 24 Hours (Table) 01/14/21 01/14/21 01/15/21 Range/Units 09:41 09:41 07:17 WBC 3.0 L (3.8-10.6) k/uL RBC 3.42 L (3.80-5.40) m/uL MCV 101.5 H 101.9 H (80.0-100.0) fL Lymphocytes # 0.7 L (1.0-4.8) k/uL Sodium (137-145) mmol/L Glucose 143 H (74-99) mg/dL 01/15/21 Range/Units 07:17 WBC (3.8-10.6) k/uL RBC (3.80-5.40) m/uL MCV (80.0-100.0) fL Lymphocytes # (1.0-4.8) k/uL Sodium 135 L (137-145) mmol/L Glucose (74-99) mg/dL Microbiology - Last 24 Hours (Table) 01/14/21 17:05 Gram Stain - Preliminary Hand - Right Wound Culture - Preliminary 01/14/21 17:05 Wound Culture - Preliminary Hand - Right 01/14/21 17:05 Wound Culture - Preliminary Hand - Right 01/14/21 17:05 Anaerobic Culture - Preliminary Hand - Right 01/14/21 17:05 Anaerobic Culture - Preliminary Hand - Right 01/14/21 17:05 Anaerobic Culture - Preliminary Hand - Right 01/14/21 17:05 Wound Culture - Preliminary Hand - Right 01/14/21 17:05 Anaerobic Culture - Preliminary Hand - Right 01/12/21 17:07 Blood Culture - Preliminary Blood No Growth after 48 hours 01/12/21 16:54 Blood Culture - Preliminary Blood No Growth after 48 hours Assessment and Plan Assessment: -Right hand infection: Patient had a dog bite with recent hospitalization and was sent home on IV antibiotic therapy. Patient following with wound care in the outpatient setting and was sent here for further evaluation as she continued to have swelling at the third metacarpal joint. MRI suggestive of osteomyelitis as mentioned previously. Status post I&D with Dr. Champion orthopedic surgery with wound VAC -Gastroesophageal reflux disease: Continue with Protonix -DVT prophylaxis: Early ambulation -GI prophylaxis: Presently on Protonix -Full code Plan: Patient underwent I&D with orthopedic surgery yesterday and cultures were obtained. Deep wound cultures pending. Infectious disease is following. Labs this morning within normal limits. Wound care also following and patient had a wound VAC applied. Will discuss with orthopedic surgery on treatment plan along with infectious disease. Awaiting finalized cultures.
--- NOTE | 2021-01-15 17:05 | PN ---
PROGRESS NOTE DATE OF SERVICE: 01/15/2021 REASON FOR FOLLOWUP: Right hand dog bite with cellulitis and osteomyelitis. INTERVAL HISTORY: The patient is currently afebrile. The patient is breathing comfortably. The patient denies having any chest pain or shortness of breath or cough. Pain to the right hand is currently controlled. PHYSICAL EXAMINATION: Blood pressure 100/63 with a pulse of 66. Temperature 98.1. She is 96% on room air. General description is an elderly female lying in bed in no distress. RESPIRATORY SYSTEM: Unlabored breathing. Clear to auscultation anteriorly. HEART: S1, S2. Regular rate and rhythm. ABDOMEN: Soft. No tenderness. Right hand is currently dressed up. No obvious drainage on the dressing. LABS: White count 4.9, creatinine 0.58. Wound cultures currently pending. DIAGNOSTIC IMPRESSION AND PLAN: Patient with right hand dog bite cellulitis with concern for underlying osteomyelitis in this patient status post surgical debridement. Deep cultures currently pending. Patient to continue Unasyn. Discharge antibiotic will depend upon the culture report. She will need a PICC line, as she will need at least 6 weeks of IV antibiotic therapy. Continue with supportive care. Everything was explained to the patient in layman's terms in the presence of RN. MMODL / IJN: [id number] /
[2021-01-16] MEDS: HYDROcodone/APAP 5-325MG 1 EACH TAB PO PRN ×3 (02:11→20:29)
[2021-01-16] MEDS: AMPICILLIN-SULBACTAM 3 GM in SODIUM CHLORIDE 0.9% 100 ML IVPB SCH ×3 (05:43→18:04)
--- NOTE | 2021-01-16 08:10 | P.PN ---
Subjective Progress Note Date: 01/16/21 Principal diagnosis: Osteomyelitis right hand. Status post dog bite right hand. This is a 65-year-old female who is admitted for evaluation of a right hand infection. Patient states that she was bitten by a dog on December 24 and has been on IV antibiotics for 10 days and following with Dr. Jin. Patient states that her swelling and pain have significantly improved, but she still has some residual swelling to the dorsal aspect of the right hand. Patient states that initially she had small puncture wounds from the bite, but these have completely healed. Patient reports stiffness with motion of the right hand. Patient denies any fever or chills, numbness, weakness, tingling or any worsening symptoms. MRI revealed a sequestrum around the third metacarpal head with evidence of osteomyelitis. She was taken to the OR on 01/14/2021 for incision and drainage and cultures. Wound VAC was applied. She is stable from an orthotic standpoint. She is afebrile and labs are stable. 01/16/2021: The patient states that her pain is fairly well controlled. She continues to have some stiffness to the fingers. She has been emotional with each visit. 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 She seems a bit overwhelmed at this time. She is afebrile and vital signs are stable. Objective - Vital Signs Vital signs: Vital Signs Temp 97.9 F 01/16/21 02:15 Pulse 73 01/16/21 02:15 Resp 15 01/16/21 02:15 BP 101/59 01/16/21 02:15 Pulse Ox 96 01/16/21 02:15 Intake & Output 01/15/21 01/16/21 01/16/21 18:59 06:59 18:59 Intake Total 1100 Balance 1100 Intake: Oral 1100 Other: Voiding Method Toilet # Voids 1 1 - Exam This is a pleasant 65-year-old female in no acute distress. She is alert and oriented 3. Exam of the right upper extremity reveals that her dressing is intact. Wound VAC is in place. She is able to wiggle her fingers today without difficulty or pain. She has normal sensation to the fingertips. Capillary refill is less than 3 seconds. - Labs CBC & Chem 7: 01/15/21 07:17 01/15/21 07:17 Labs: Abnormal Lab Results - Last 24 Hours (Table) 01/15/21 Range/Units 07:17 Sodium 135 L (137-145) mmol/L Microbiology - Last 24 Hours (Table) 01/12/21 17:07 Blood Culture - Preliminary Blood No Growth after 72 hours 01/12/21 16:54 Blood Culture - Preliminary Blood No Growth after 72 hours 01/14/21 17:05 Gram Stain - Preliminary Hand - Right Wound Culture - Preliminary 01/14/21 17:05 Gram Stain - Preliminary Hand - Right Wound Culture - Preliminary 01/14/21 17:05 Gram Stain - Preliminary Hand - Right Wound Culture - Preliminary 01/14/21 17:05 Gram Stain - Preliminary Hand - Right Wound Culture - Preliminary Assessment and Plan (1) Acute osteomyelitis of metacarpal bone of right hand Current Visit: Yes Status: Acute Code(s): M86.141 - OTHER ACUTE OSTEOMYELITIS, RIGHT HAND SNOMED Code(s): 173879478 (2) Dog bite of right hand with infection Current Visit: Yes Status: Acute Code(s): S61.451A - OPEN BITE OF RIGHT HAND, INITIAL ENCOUNTER; L08.9 - LOCAL INFECTION OF THE SKIN AND SUBCUTANEOUS TISSUE, UNSP; W54.0XXA - BITTEN BY DOG, INITIAL ENCOUNTER SNOMED Code(s): 735580381 (3) Failure of outpatient treatment Current Visit: Yes Status: Acute Code(s): Z78.9 - OTHER SPECIFIED HEALTH STATUS SNOMED Code(s): 628012966 Plan: The clinical findings are discussed with the patient. She will continue with the wound VAC and IV antibiotics per infectious disease. Wound care will be changing her wound VAC today.
[2021-01-16] MEDS: PANTOPRAZOLE 40 MG TABLET PO SCH (08:42)
[2021-01-16] MEDS: HYDROmorphone 1 MG/ML 1 ML SYRINGE IVP PRN (10:23)
--- NOTE | 2021-01-16 14:14 | IR ---
PICC LINE EXCHANGE OVER A GUIDEWIRE: HISTORY: Infection requiring long-term antibiotic therapy PROCEDURE: Ultrasound and fluoroscopic guidance of PICC line placement. COMPLICATIONS: None ANESTHESIA: 1. 1% Lidocaine locally. FINDINGS/TECHNIQUE: The procedure was explained to the patient. The risks, complications, benefits and alternatives were discussed and any questions were answered. Informed consent was obtained. The patient was placed supine on the fluoroscopic table and prepped and draped in the usual sterile fash ion. Pre-existing midline was present and was cut and there is placement of a 0.018 guidewire. The v ein is patent. A 4-F sheath was placed over the guidewire. The guidewire and dilator were removed a nd a 4-F. PICC line was placed through the sheath with the tip at the level of the SVC. The sheath w as removed, the catheter was flushed and sutured into position. The patient was stable throughout th e procedure and remained stable upon discharge from the Department of Radiology. The vein puncture was patent under ultrasound. A sherman scale image was obtained to document patency of the vein punctured. All elements of the maximal barrier technique were utilized. FLUOROSCOPY TIME: 0.2 minutes and one images submitted IMPRESSION: Successful PICC line exchange under fluoroscopic guidance.
--- NOTE | 2021-01-16 14:47 | P.PN ---
Subjective Progress Note Date: 01/16/21 65-year-old female presenting to the emergency department with concerns of an increasing right hand infection. Patient states she was bit by a dog on December 24, has been on IV antibiotics for the last 10 days, 2 g of Rocephin. Patient states she has been seen Dr. Jin for this and did have a consult with Dr. Rodrigues. Patient states she had her follow-up with Dr. Jin yesterday who recommended she go into the ER for IV antibiotics and consult to Dr. Rodrigues for possible debridement. Patient denies having any fevers or chills, no nausea or vomiting. She states her hand continues to be swollen, warm to the touch and painful. She denies any chest pain or shortness of breath. She has no further complaints at this time. Patient was started on Unasyn here. 01/14/2021 Patient is seen and evaluated and underwent an MRI of the right hand showing destructive changes and abnormal signal in the distal third metacarpal consistent with osteomyelitis along with diffuse soft tissue edema around the third metacarpal with some subcutaneous edema noted. Orthopedic surgery Dr. Champion following and planning on incision and drainage today. Infectious disease also following and patient does have a PICC line and is maintained on IV Unasyn and will continue at this time. Will await deep cultures to determine discharge antibiotics. Patient is afebrile. 01/15/2021 Patient is seen this morning and underwent incision and drainage with wound cultures obtained with Dr. Champion orthopedic surgery yesterday. Patient does have a wound VAC applied to the right hand. Dressing is dry and intact. Wound care is also following. Patient is maintained on IV antibiotics and infectious disease following. Will await for culture finalization of the deep tissues to determine discharge antibiotics. Patient states she was told by orthopedic surgery that she will remain in the hospital for 1-2 weeks. Will discuss with orthopedic surgery about the treatment plan. Patient states pain is fairly cont rolled at this time and is able to move her fingers and denies any tingling or numbness. 01/16/2021 Patient is seen this morning currently undergoing wound VAC change of the right hand which is extremely tender and having pain 10 out of 10. She did receive 1 mg of Dilaudid prior to procedure. Cultures currently pending and will be awaiting for finalization. Case management also following as patient will require IV antibiotics along with wound care and wound VAC in the outpatient setting. Orthopedic surgery along with infectious disease are following. Patient is maintained on Unasyn and will continue until cultures finalized. Patient continues to be extremely tearful and emotional during conversation with her situation and hospitalization. Review of systems: Constitutional: No reports of fatigue, fever, or chills Cardiovascular: No reports of chest pain or palpitations Respiratory: No reports of shortness of breath or cough GI: No reports of nausea, vomiting, or diarrhea : No reports of dysuria or retention Neurovascular: No reports of weakness or numbness, reports extreme discomfort of the right upper hand currently at the moment during a wound VAC and dressing change All medications have been reviewed Objective - Vital Signs Vital signs: Vital Signs Temp 98.2 F 01/16/21 08:20 Pulse 67 01/16/21 08:20 Resp 14 01/16/21 08:20 BP 103/65 01/16/21 08:20 Pulse Ox 97 01/16/21 08:20 Intake & Output 01/15/21 01/16/21 01/16/21 18:59 06:59 18:59 Intake Total 1100 400 Balance 1100 400 Intake: Oral 1100 400 Other: Voiding Method Toilet Toilet # Voids 1 1 - Exam GENERAL: The patient is alert and oriented x3, not in any acute distress. Well developed, well nourished. HEENT: Pupils are round and equally reacting to light. EOMI. No scleral icterus. No conjunctival pallor. Normocephalic, atraumatic. No pharyngeal erythema. No thyromegaly. CARDIOVASCULAR: S1 and S2 present. No murmurs, rubs, or gallops. PULMONARY: Chest is clear to auscultation, no wheezing or crackles. ABDOMEN: Soft, nontender, nondistended, normoactive bowel sounds. No palpable organomegaly. MUSCULOSKELETAL: some stiffness and limited range of motion at the third metacarpal joint with some continued swelling and tenderness on palpation, surgical dressing status post I&D is dry and intact and wound VAC noted of the right hand EXTREMITIES: No cyanosis, clubbing, or pedal edema. NEUROLOGICAL: Gross neurological examination did not reveal any focal deficits. SKIN: Wound VAC noted - Labs CBC & Chem 7: 01/15/21 07:17 01/15/21 07:17 Labs: Microbiology - Last 24 Hours (Table) 01/12/21 17:07 Blood Culture - Preliminary Blood No Growth after 72 hours 01/12/21 16:54 Blood Culture - Preliminary Blood No Growth after 72 hours 01/14/21 17:05 Gram Stain - Preliminary Hand - Right Wound Culture - Preliminary 01/14/21 17:05 Gram Stain - Preliminary Hand - Right Wound Culture - Preliminary 01/14/21 17:05 Gram Stain - Preliminary Hand - Right Wound Culture - Preliminary 01/14/21 17:05 Gram Stain - Preliminary Hand - Right Wound Culture - Preliminary Assessment and Plan Assessment: -Right hand infection: Patient had a dog bite with recent hospitalization and was sent home on IV antibiotic therapy. Patient following with wound care in the outpatient setting and was sent here for further evaluation as she continued to have swelling at the third metacarpal joint. MRI suggestive of osteomyelitis as mentioned previously. Status post I&D with Dr. Champion orthopedic surgery with wound VAC -Gastroesophageal reflux disease: Continue with Protonix -DVT prophylaxis: Early ambulation -GI prophylaxis: Presently on Protonix -Full code Plan: Patient underwent I&D with orthopedic surgery and cultures were obtained. Deep wound cultures pending. Infectious disease is following. Wound care also following and patient had a wound VAC applied. Will discuss with orthopedic surgery on treatment plan along with infectious disease. Awaiting finalized cultures. Case management also following and awaiting for authorization on the wound VAC in the outpatient setting. Patient will also need IV antibiotic therapy outpatient. Will repeat a.m. labs and continue to monitor closely.
--- NOTE | 2021-01-16 15:42 | PN ---
PROGRESS NOTE DATE OF SERVICE: 01/16/2021 REASON FOR FOLLOWUP: Right hand dog bite cellulitis and osteomyelitis. INTERVAL HISTORY: The patient is currently afebrile. The patient is feeling better, breathing comfortably. Right hand discomfort slightly decreased. No chest pain, shortness of breath or cough. No abdominal pain no diarrhea. PHYSICAL EXAMINATION: Blood pressure 117/53 with a pulse of 63, temperature 98.6. She is 97% on room air. General description is an elderly female lying in bed in no distress. RESPIRATORY SYSTEM: Unlabored breathing. Clear to auscultation anteriorly. HEART: S1, S2. Regular rate and rhythm. ABDOMEN: Soft. No tenderness. Right hand is currently covered with a wound V.A.C. The nurse who changed the wound V.A.C. mentioned there was good bleeding tissue at the base and no slough or any bone exposed. LABS: No new labs have been obtained today. Cultures currently pending. DIAGNOSTIC IMPRESSION AND PLAN: Patient with right hand dog bite cellulitis, status post incision and drainage. Cultures are pending. Patient is covered with Unasyn. Will adjust discharge antibiotics on the basis of the culture report. Continue with supportive care. MMODL / IJN: [id number] /
[2021-01-16] MEDS: SODIUM CHLORIDE 0.9% 1,000 ML IV SCH (19:26)
[2021-01-17] MEDS: AMPICILLIN-SULBACTAM 3 GM in SODIUM CHLORIDE 0.9% 100 ML IVPB SCH ×5 (00:29→23:30)
[2021-01-17] MEDS: HYDROcodone/APAP 5-325MG 1 EACH TAB PO PRN ×3 (00:29→21:23)
[2021-01-17 07:13] LABS: Basophils % (A) 1 %; Eosinophils # (A) 0.2 k/uL (0-0.7); Eosinophils % (A) 4 %; HCT 35.7 % (34.0-46.0); HGB 11.7 gm/dL (11.4-16.0); Lymphocytes # (A) 1.5 k/uL (1.0-4.8); Lymphocytes % (A) 37 %; MCH 32.7 pg (25.0-35.0); MCHC 32.9 g/dL (31.0-37.0); MCV 99.2 fL (80.0-100.0); Mean Platelet Volume 7.7; Monocytes # (A) 0.4 k/uL (0-1.0); Monocytes % (A) 11 %; Neutrophils # (A) 1.8 k/uL (1.3-7.7); Neutrophils % (A) 44 %; Platelet Count 249 k/uL (150-450); RDW 12.8 % (11.5-15.5)
[2021-01-17 07:26] LABS: African American GFR (CKD) >90 (>60 ml/min/1.73 sqM); Anion Gap 3 mmol/L; Blood Urea Nitrogen 11 mg/dL (7-17); Calcium 9.1 mg/dL (8.4-10.2); Carbon Dioxide 34 mmol/L (22-30); Chloride 101 mmol/L (98-107); Glucose 84 mg/dL (74-99); Non-African American GFR(CKD) >90 (>60 ml/min/1.73 sqM); Potassium 4.3 mmol/L (3.5-5.1); Sodium 138 mmol/L (137-145)
[2021-01-17] MEDS: ALPRAZolam 0.25 MG TAB PO PRN (08:43)
[2021-01-17] MEDS: HYDROmorphone 1 MG/ML 1 ML SYRINGE IVP PRN (10:10)
[2021-01-17] MEDS: PANTOPRAZOLE 40 MG TABLET PO SCH (12:51)
--- NOTE | 2021-01-17 13:58 | P.PN ---
Subjective 65-year-old female presenting to the emergency department with concerns of an increasing right hand infection. Patient states she was bit by a dog on December 24, has been on IV antibiotics for the last 10 days, 2 g of Rocephin. Patient states she has been seen Dr. Jin for this and did have a consult with Dr. Rodrigues. Patient states she had her follow-up with Dr. Jin yesterday who recommended she go into the ER for IV antibiotics and consult to Dr. Rodrigues for possible debridement. Patient denies having any fevers or chills, no nausea or vomiting. She states her hand continues to be swollen, warm to the touch and painful. She denies any chest pain or shortness of breath. She has no further complaints at this time. Patient was started on Unasyn here. 01/14/2021 Patient is seen and evaluated and underwent an MRI of the right hand showing destructive changes and abnormal signal in the distal third metacarpal consistent with osteomyelitis along with diffuse soft tissue edema around the third metacarpal with some subcutaneous edema noted. Orthopedic surgery Dr. Champion following and planning on incision and drainage today. Infectious disease also following and patient does have a PICC line and is maintained on IV Unasyn and will continue at this time. Will await deep cultures to determine discharge antibiotics. Patient is afebrile. 01/15/2021 Patient is seen this morning and underwent incision and drainage with wound cultures obtained with Dr. Champion orthopedic surgery yesterday. Patient does have a wound VAC applied to the right hand. Dressing is dry and intact. Wound care is also following. Patient is maintained on IV antibiotics and infectious disease following. Will await for culture finalization of the deep tissues to determine discharge antibiotics. Patient states she was told by orthopedic s urgery that she will remain in the hospital for 1-2 weeks. Will discuss with orthopedic surgery about the treatment plan. Patient states pain is fairly controlled at this time and is able to move her fingers and denies any tingling or numbness. 01/16/2021 Patient is seen this morning currently undergoing wound VAC change of the right hand which is extremely tender and having pain 10 out of 10. She did receive 1 mg of Dilaudid prior to procedure. Cultures currently pending and will be await ing for finalization. Case management also following as patient will require IV antibiotics along with wound care and wound VAC in the outpatient setting. Orthopedic surgery along with infectious disease are following. Patient is maintained on Unasyn and will continue until cultures finalized. Patient continues to be extremely tearful and emotional during conversation with her situation and hospitalization. 01/17/2021 No significant change in her overall clinical condition patient is a wound VAC and patient is receiving IV antibiotics and the nursing staff is requesting psychiatric consult because of for anxiety and emotional state. Review of systems: Constitutional: No reports of fatigue, fever, or chills Cardiovascular: No reports of chest pain or palpitations Respiratory: No reports of shortness of breath or cough GI: No reports of nausea, vomiting, or diarrhea : No reports of dysuria or retention Neurovascular: No focal deficits Objective - Vital Signs Vital signs: Vital Signs Temp 98.4 F 01/17/21 08:02 Pulse 67 01/17/21 08:02 Resp 16 01/17/21 08:02 BP 115/65 01/17/21 08:02 Pulse Ox 98 01/17/21 08:02 Intake & Output 01/16/21 01/17/21 01/17/21 18:59 06:59 18:59 Intake Total 1600 640 300 Balance 1600 640 300 Intake: Intake, IV Titration 100 Amount Ampicillin-Sulbactam 3 gm 100 In Sodium Chloride 0.9% 100 ml @ 200 mls/hr IVPB Q6HR [facility] Rx#:[id number] Oral 1600 540 300 Other: Voiding Method Toilet Toilet # Voids 4 1 1 - Exam GENERAL: The patient is alert and oriented x3, not in any acute distress. Well developed, well nourished. HEENT: Pupils are round and equally reacting to light. EOMI. No scleral icterus. No conjunctival pallor. Normocephalic, atraumatic. No pharyngeal erythema. No thyromegaly. CARDIOVASCULAR: S1 and S2 present. No murmurs, rubs, or gallops. PULMONARY: Chest is clear to auscultation, no wheezing or crackles. ABDOMEN: Soft, nontender, nondistended, normoactive bowel sounds. No palpable organomegaly. MUSCULOSKELETAL: some stiffness and limited range of motion at the third metacarpal joint with some continued swelling and tenderness on palpation, surgical dressing status post I&D is dry and intact and wound VAC noted of the right hand EXTREMITIES: No cyanosis, clubbing, or pedal edema. NEUROLOGICAL: Gross neurological examination did not reveal any focal deficits. SKIN: Wound VAC noted - Labs CBC & Chem 7: 01/17/21 06:02 01/17/21 06:02 Labs: Abnormal Lab Results - Last 24 Hours (Table) 01/17/21 01/17/21 Range/Units 06:02 06:02 RBC 3.60 L (3.80-5.40) m/uL Carbon Dioxide 34 H (22-30) mmol/L Microbiology - Last 24 Hours (Table) 01/14/21 17:05 Anaerobic Culture - Preliminary Hand - Right 01/14/21 17:05 Anaerobic Culture - Preliminary Hand - Right 01/14/21 17:05 Anaerobic Culture - Preliminary Hand - Right 01/14/21 17:05 Anaerobic Culture - Preliminary Hand - Right 01/12/21 17:07 Blood Culture - Preliminary Blood No Growth after 96 hours 01/12/21 16:54 Blood Culture - Preliminary Blood No Growth after 96 hours 01/14/21 17:05 Gram Stain - Final Hand - Right Wound Culture - Final 01/14/21 17:05 Gram Stain - Final Hand - Right Wound Culture - Final 01/14/21 17:05 Gram Stain - Final Hand - Right Wound Culture - Final 01/14/21 17:05 Gram Stain - Final Hand - Right Wound Culture - Final Assessment and Plan Plan: -Right hand infection: Patient had a dog bite with recent hospitalization and wa s sent home on IV antibiotic therapy. Patient following with wound care in the outpatient setting and was sent here for further evaluation as she continued to have swelling at the third metacarpal joint. MRI suggestive of osteomyelitis as mentioned previously. Status post I&D by Dr. Champion orthopedic surgery with wound VAC -Gastroesophageal reflux disease: Continue with Protonix -DVT prophylaxis: Early ambulation -GI prophylaxis: Presently on Protonix -Full code Plan: Patient underwent I&D with orthopedic surgery and cultures were obtained. Deep wound cultures pending. Infectious disease is following. Wound care also following and patient had a wound VAC applied. Will discuss with orthopedic surgery on treatment plan along with infectious disease. Awaiting finalized cultures. Case management also following and awaiting for authorization on the wound VAC in the outpatient setting. Patient will also need IV antibiotic therapy outpatient.
--- NOTE | 2021-01-17 17:10 | P.PN ---
Subjective Progress Note Date: 01/17/21 Principal diagnosis: Right hand wound This is a 65-year-old female seen at bedside this am. We are following for right hand wound from dog bite where she has most recently underwent I and D on 01/14/21. She is on IV antibiotics. She has no new complaints today. She feels the pain is improved some. She is denying fever chills numbness tingling or other PHX: This is a 65-year-old female who is admitted for evaluation of a right hand infection. Patient states that she was bitten by a dog on December 24 and has been on IV antibiotics for 10 days and following with Dr. Jin. Patient states that her swelling and pain have significantly improved, but she still has some residual swelling to the dorsal aspect of the right hand. Patient states that initially she had small puncture wounds from the bite, but these have completely healed. Patient reports stiffness with motion of the right hand. Patient denies any fever or chills, numbness, weakness, tingling or any worsening symptoms. MRI revealed a sequestrum around the third metacarpal head with evidence of osteomyelitis. She was taken to the OR on 01/14/2021 for incision and drainage and cultures. Wound VAC was applied. She is stable from an orthotic standpoint. She is afebrile and labs are stable. 01/16/2021: The patient states that her pain is fairly well controlled. She continues to have some stiffness to the fingers. She has been emotional with each visit. 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 She seems a bit overwhelmed at this time. She is afebrile and vital signs are st able. Objective - Vital Signs Vital signs: Vital Signs Temp 98.3 F 01/17/21 14:13 Pulse 69 01/17/21 14:13 Resp 16 01/17/21 14:13 BP 100/62 01/17/21 14:13 Pulse Ox 98 01/17/21 14:13 Intake & Output 01/16/21 01/17/21 01/17/21 18:59 06:59 18:59 Intake Total 1600 640 300 Balance 1600 640 300 Intake: Intake, IV Titration 100 Amount Ampicillin-Sulbactam 3 gm 100 In Sodium Chloride 0.9% 100 ml @ 200 mls/hr IVPB Q6HR [facility] Rx#:[id number] Oral 1600 540 300 Other: Voiding Method Toilet Toilet # Voids 4 1 1 - Exam Wound vac in place at dorsum of right hand. No evidence of progressive erythema. NVI throughout all digits and hand. She is able to flex and extend all digits. less than 2 sec cap refill present - Constitutional General appearance: Present: no acute distress - Labs CBC & Chem 7: 01/17/21 06:02 01/17/21 06:02 Labs: Abnormal Lab Results - Last 24 Hours (Table) 01/17/21 01/17/21 Range/Units 06:02 06:02 RBC 3.60 L (3.80-5.40) m/uL Carbon Dioxide 34 H (22-30) mmol/L Microbiology - Last 24 Hours (Table) 01/14/21 17:05 Anaerobic Culture - Preliminary Hand - Right 01/14/21 17:05 Anaerobic Culture - Preliminary Hand - Right 01/14/21 17:05 Anaerobic Culture - Preliminary Hand - Right 01/14/21 17:05 Anaerobic Culture - Preliminary Hand - Right 01/12/21 17:07 Blood Culture - Preliminary Blood No Growth after 96 hours 01/12/21 16:54 Blood Culture - Preliminary Blood No Growth after 96 hours 01/14/21 17:05 Gram Stain - Final Hand - Right Wound Culture - Final 01/14/21 17:05 Gram Stain - Final Hand - Right Wound Culture - Final 01/14/21 17:05 Gram Stain - Final Hand - Right Wound Culture - Final 01/14/21 17:05 Gram Stain - Final Hand - Right Wound Culture - Final Assessment and Plan (1) Dog bite of right hand with infection Narrative/Plan: She will continue with wound vac, elevation, IV antibiotics, medical management and pain management. Expect transfer to home in next 1-2 days. Current Visit: Yes Status: Acute Priority: Medium Code(s): S61.451A - OPEN BITE OF RIGHT HAND, INITIAL ENCOUNTER; L08.9 - LOCAL INFECTION OF THE SKIN AND SUBCUTANEOUS TISSUE, UNSP; W54.0XXA - BITTEN BY DOG, INITIAL ENCOUNTER SNOMED Code(s): 140111602 Time with Patient: Less than 30
--- NOTE | 2021-01-17 17:28 | PN ---
PROGRESS NOTE DATE OF SERVICE: 01/17/2021 REASON FOR FOLLOWUP: Right hand dog bite cellulitis and osteomyelitis. INTERVAL HISTORY: Patient is currently afebrile. She has been complaining of pain to the right hand, especially at the time of dressing changes and wound VAC manipulation. Patient denies having any chest pain or shortness of breath. No cough. No abdominal pain or diarrhea. PHYSICAL EXAMINATION: Blood pressure 100/62 with a pulse of 69, temperature 98.8. She is 98% on room air. GENERAL DESCRIPTION: An elderly female lying in bed in no distress. RESPIRATORY SYSTEM: Unlabored breathing, clear to auscultation anteriorly. HEART: S1, S2. Regular rate and rhythm. ABDOMEN: Soft, no tenderness. EXTREMITIES: Right hand currently covered with wound VAC with surrounding swelling that has improved. LABS: Hemoglobin 11.1, white count 4.0, BUN of 11, creatinine 0.62. DIAGNOSTIC IMPRESSION AND PLAN: Patient with right hand osteomyelitis from a dog bite in this patient who is status post I&D, removal of infected wound. Patient is covered with Unasyn. Culture so far negative. Option will be to continue Unasyn at home which is 4 times daily compared to Rocephin and Flagyl that the patient is already on. Will repeat inflammatory markers tomorrow. Continue wound care with wound VAC. MMODL / IJN: [id number] /
[2021-01-18] MEDS: ALPRAZolam 0.25 MG TAB PO PRN ×2 (01:56→19:27)
[2021-01-18] MEDS: HYDROmorphone 1 MG/ML 1 ML SYRINGE IVP PRN (02:00)
[2021-01-18 04:03] VITALS: RESP 16
[2021-01-18] MEDS: AMPICILLIN-SULBACTAM 3 GM in SODIUM CHLORIDE 0.9% 100 ML IVPB SCH ×3 (05:17→18:16)
[2021-01-18 05:47] LABS: Basophils % (A) 1 %; Eosinophils # (A) 0.2 k/uL (0-0.7); Eosinophils % (A) 5 %; HCT 34.6 % (34.0-46.0); HGB 11.8 gm/dL (11.4-16.0); Lymphocytes # (A) 1.6 k/uL (1.0-4.8); Lymphocytes % (A) 39 %; MCH 33.8 pg (25.0-35.0); MCHC 34.1 g/dL (31.0-37.0); MCV 98.9 fL (80.0-100.0); Mean Platelet Volume 7.7; Monocytes # (A) 0.5 k/uL (0-1.0); Monocytes % (A) 11 %; Neutrophils # (A) 1.7 k/uL (1.3-7.7); Neutrophils % (A) 42 %; Platelet Count 231 k/uL (150-450); RDW 12.9 % (11.5-15.5)
[2021-01-18 06:07] LABS: African American GFR (CKD) >90 (>60 ml/min/1.73 sqM); Anion Gap 4 mmol/L; Blood Urea Nitrogen 11 mg/dL (7-17); C Reactive Protein <5.0 mg/L (<10.0); Calcium 8.9 mg/dL (8.4-10.2); Carbon Dioxide 31 mmol/L (22-30); Chloride 101 mmol/L (98-107); Glucose 96 mg/dL (74-99); Non-African American GFR(CKD) >90 (>60 ml/min/1.73 sqM); Potassium 4.2 mmol/L (3.5-5.1); Sodium 136 mmol/L (137-145)
[2021-01-18] MEDS: HYDROcodone/APAP 5-325MG 1 EACH TAB PO PRN ×2 (06:51→10:58)
[2021-01-18 08:00] LABS: Erythrocyte Sedimentation Rate 31 mm/hr (0-20)
[2021-01-18] MEDS: PANTOPRAZOLE 40 MG TABLET PO SCH (08:16)
--- NOTE | 2021-01-18 11:41 | P.HP ---
Psychiatric H&P - . H&P Date: 01/18/21 History & Physical: IDENTIFYING DATA: She is a 65-year-old female admitted to surgery service for the treatment of an infection of her right hand secondary to a dog bite. The hospitalist consult to psychiatry because the patient was "feeling overwhelmed and complaining of stress and anxiety." HISTORY OF PRESENT ILLNESS: I reviewed the medical record and interviewed the patient. She was tearful throughout the interview until we began discussing my treatment recommendations when she became angry, accused staff of not listening to her, addressing her pain and supporting her distress. She is overwhelmed by her experiences in treating the infection of her hand. She perseverated on the pain and her concerns about loss of function. She feels unable to tolerate the pain that she experiences when surgery debrided the wound and she is afraid that she will need an additional surgical interventions. During the interview she acknowledges feelings of hopelessness, helplessness and worthlessness. She has thoughts of and wishes but denied suicidal ideation, plan or intent. She described "some" problems with sleep that she attributed to pain, anxiety and concern over her medical condition. At the conclusion of the interview we discussed my recommendations. She appeared offended when I recommended treatment with an antidepressant medication. She denied that she was depressed and perseverated about anxiety. She believes that she is anxious about her medical condition, disability as a result of the infection and anticipated medical interventions. She made such allegations as we only wanted to "give me a pill" and she "will not be a guinea pig." She expressed a belief that nursing and other staff have not listened to her concerns or made an effort to quell her anxiety. She believes that we did not prepare her adequately for the pain and discomfort she experience when surgery debrided her wound. PAST PSYCHIATRIC HISTORY: She denied a history of mental health treatment. She's had no psychiatric hospitalizations. PAST MEDICAL HISTORY: No history of major medical problems ALLERGIES: Ibuprofen SUBSTANCE USE HISTORY:. She denied history of alcohol or drug use problems. She is a social drinker. She smokes cigarettes. FAMILY PSYCHIATRIC/SUBSTANCE USE HISTORY: A paternal uncle has a history of schizophrenia SOCIAL HISTORY: She was born and raised in intact family. She's been 3 times. She lives with her third . She has adequate income from 3 different pensions in addition to social security. She has an adult son from her first marriage. Her current is recovering from a CVA. MENTAL STATUS EXAM: She presented as a somewhat disheveled appearing 65-year-old female who looked her stated age. She made eye contact and appeared to attend to the interview. She had no distinguishing features or prominent physical abnormalities she had as sad facial expression and cried throughout the interview. She was alert and oriented to person, place and time. She had psychomotor retardation but no abnormal involuntary movements. Her speech was spontaneous with normal rate and rhythm but decreased volume. She had no articulation difficulties. Her his affect was dysphoric with prominent depression and anxiety. She denied suicidal ideation and wishes. She denied homicidal ideation. She expressed such depressive cognitions as hopeles sness, helplessness and worthlessness. Her and she ruminated about her medical disability, pain and discomfort. She did not express ideas reference, paranoid ideation or delusions. Her thinking was abstract and associations were coherent, logical and goal directed. She denied hallucinations did not appear to responding to internal stimuli. IMPRESSIONS: She is a 65-year-old female admitted to medicine service for treatment of a wound infection secondary to a dog bite. The patient is currently in December and she has been suffering from the infection that has not responded to outpatient treatment. She was angry and depressed throughout the interview and cried frequently. She expressed symptoms of depression and fears over the medical condition, pain and concerns about future disability. She is developed marked distress d in the context of a prolonged medical condition, extended hospitalization and multiple interventions. She does not have daytime depression for a major depressive disorder but the level of her distress is consistent with an adjustment disorder with mixed disturbance of mood. DIAGNOSIS: Adjustment disorder with disturbance of mood, rule out major depressive disorder RECOMMENDATION: There is no indication for transfer to psychiatric unit. She would benefit from an antidepressant to address the depression, anxiety and pain. However, she described this recommendation. In addition, staff should address her concerns about feeling that we are not listening to her and make effort to prepare her and limit her anxiety and distress prior to any interventions. Psychiatry will follow. Allergies Allergy/AdvReac Type Severity Reaction Status Date / Time ibuprofen [From Motrin] Allergy Dyspnea Verified 01/14/21 15:22 Vital Signs Temp 97.7 F 01/18/21 08:00 Pulse 63 01/18/21 08:00 Resp 16 01/18/21 08:00 BP 118/71 01/18/21 08:00 Pulse Ox 98 01/18/21 08:00 Intake & Output 01/17/21 01/18/21 01/18/21 18:59 06:59 18:59 Intake Total 700 Balance 700 Intake: Oral 700 Other: Voiding Method Toilet # Voids 1 2 Laboratory Last Values WBC 4.0 k/uL (3.8-10.6) 01/18/21 05:25 RBC 3.50 m/uL (3.80-5.40) L 01/18/21 05:25 Hgb 11.8 gm/dL (11.4-16.0) 01/18/21 05:25 Hct 34.6 % (34.0-46.0) 01/18/21 05:25 MCV 98.9 fL (80.0-100.0) 01/18/21 05:25 MCH 33.8 pg (25.0-35.0) 01/18/21 05:25 MCHC 34.1 g/dL (31.0-37.0) 01/18/21 05:25 RDW 12.9 % (11.5-15.5) 01/18/21 05:25 Plt Count 231 k/uL (150-450) 01/18/21 05:25 MPV 7.7 01/18/21 05:25 Neutrophils % 42 % 01/18/21 05:25 Lymphocytes % 39 % 01/18/21 05:25 Monocytes % 11 % 01/18/21 05:25 Eosinophils % 5 % 01/18/21 05:25 Basophils % 1 % 01/18/21 05:25 Neutrophils # 1.7 k/uL (1.3-7.7) 01/18/21 05:25 Lymphocytes # 1.6 k/uL (1.0-4.8) 01/18/21 05:25 Monocytes # 0.5 k/uL (0-1.0) 01/18/21 05:25 Eosinophils # 0.2 k/uL (0-0.7) 01/18/21 05:25 Basophils # 0.0 k/uL (0-0.2) 01/18/21 05:25 Macrocytosis Slight 01/15/21 07:17 ESR 31 mm/hr (0-20) H 01/18/21 05:25 Sodium 136 mmol/L (137-145) L 01/18/21 05:25 Potassium 4.2 mmol/L (3.5-5.1) 01/18/21 05:25 Chloride 101 mmol/L (98-107) 01/18/21 05:25 Carbon Dioxide 31 mmol/L (22-30) H 01/18/21 05:25 Anion Gap 4 mmol/L 01/18/21 05:25 BUN 11 mg/dL (7-17) 01/18/21 05:25 Creatinine 0.62 mg/dL (0.52-1.04) 01/18/21 05:25 Est GFR (CKD-EPI)AfAm >90 (>60 ml/min/1.73 sqM) 01/18/21 05:25 Est GFR (CKD-EPI)NonAf >90 (>60 ml/min/1.73 sqM) 01/18/21 05:25 Glucose 96 mg/dL (74-99) 01/18/21 05:25 Calcium 8.9 mg/dL (8.4-10.2) 01/18/21 05:25 Total Bilirubin 0.5 mg/dL (0.2-1.3) 01/12/21 16:55 AST 28 U/L (14-36) 01/12/21 16:55 ALT 16 U/L (4-34) 01/12/21 16:55 Alkaline Phosphatase 90 U/L (38-126) 01/12/21 16:55 C-Reactive Protein <5.0 mg/L (<10.0) 01/18/21 05:25 Total Protein 7.0 g/dL (6.3-8.2) 01/12/21 16:55 Albumin 4.4 g/dL (3.5-5.0) 01/12/21 16:55 Coronavirus (PCR) Not Detected (Not Detectd) 01/12/21 18:18 01/18/21 11:22
[2021-01-18] MEDS ORDERED: diazePAM 2 MG TAB PO PRN (12:00)
--- NOTE | 2021-01-18 12:04 | P.PN ---
Subjective Progress Note Date: 01/18/21 Principal diagnosis: Right hand wound This is a 65-year-old female seen at bedside this am. We are following her for a right hand wound from dog bite where she has most recently underwent I and D on 01/14/21. She is on IV antibiotics. She has no new complaints today. She feels the pain is improved some at rest. She has pain and anxiety at wound vac changes. She is currently denying fever chills numbness tingling or other PHX: This is a 65-year-old female who is admitted for evaluation of a right hand infection. Patient states that she was bitten by a dog on December 24 and has been on IV antibiotics for 10 days and following with Dr. Jin. Patient states that her swelling and pain have significantly improved, but she still has some residual swelling to the dorsal aspect of the right hand. Patient states that initially she had small puncture wounds from the bite, but these have completely healed. Patient reports stiffness with motion of the right hand. Patient d enies any fever or chills, numbness, weakness, tingling or any worsening symptoms. MRI revealed a sequestrum around the third metacarpal head with evidence of osteomyelitis. She was taken to the OR on 01/14/2021 for incision and drainage and cultures. Wound VAC was applied. She is stable from an orthotic standpoint. She is afebrile and labs are stable. 01/16/2021: The patient states that her pain is fairly well controlled. She continues to have some stiffness to the fingers. She has been emotional with each visit. 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 She seems a bit overwhelmed at this time. She is afebrile and vital signs are stable. Objective - Vital Signs Vital signs: Vital Signs Temp 97.7 F 01/18/21 08:00 Pulse 63 01/18/21 08:00 Resp 16 01/18/21 08:00 BP 118/71 01/18/21 08:00 Pulse Ox 98 01/18/21 08:00 Intake & Output 01/17/21 01/18/21 01/18/21 18:59 06:59 18:59 Intake Total 700 Balance 700 Intake: Oral 700 Other: Voiding Method Toilet # Voids 1 2 - Exam Wound vac in place at dorsum of right hand. No evidence of progressive erythema. NVI throughout all digits and hand. She is able to flex and extend all digits. less than 2 sec cap refill present. - Constitutional General appearance: Present: no acute distress - Labs CBC & Chem 7: 01/18/21 05:25 01/18/21 05:25 Labs: Abnormal Lab Results - Last 24 Hours (Table) 01/18/21 01/18/21 Range/Units 05:25 05:25 RBC 3.50 L (3.80-5.40) m/uL ESR 31 H (0-20) mm/hr Sodium 136 L (137-145) mmol/L Carbon Dioxide 31 H (22-30) mmol/L Microbiology - Last 24 Hours (Table) 01/12/21 16:54 Blood Culture - Preliminary Blood No Growth after 120 hours 01/12/21 17:07 Blood Culture - Preliminary Blood No Growth after 120 hours Assessment and Plan (1) Dog bite of right hand with infection Narrative/Plan: She will continue with wound vac, elevation, IV antibiotics, medical management and pain management. Expect transfer to home in next 1-2 day when ok with Dr. Champion, ID and medicine. Current Visit: Yes Status: Acute Priority: Medium Code(s): S61.451A - OPEN BITE OF RIGHT HAND, INITIAL ENCOUNTER; L08.9 - LOCAL INFECTION OF THE SKIN AND SUBCUTANEOUS TISSUE, UNSP; W54.0XXA - BITTEN BY DOG, INITIAL ENCOUNTER SNOMED Code(s): 828909711 Time with Patient: Less than 30
[2021-01-18] MEDS: HYDROcodone/APAP 7.5-325MG 1 EACH TAB PO PRN ×2 (15:07→20:34)
--- NOTE | 2021-01-18 15:38 | P.PN ---
Subjective 65-year-old female presenting to the emergency department with concerns of an increasing right hand infection. Patient states she was bit by a dog on December 24, has been on IV antibiotics for the last 10 days, 2 g of Rocephin. Patient states she has been seen Dr. Jin for this and did have a consult with Dr. Rodrigues. Patient states she had her follow-up with Dr. Jin yesterday who recommended she go into the ER for IV antibiotics and consult to Dr. Rodrigues for possible debridement. Patient denies having any fevers or chills, no nausea or vomiting. She states her hand continues to be swollen, warm to the touch and painful. She denies any chest pain or shortness of breath. She has no further complaints at this time. Patient was started on Unasyn here. 01/14/2021 Patient is seen and evaluated and underwent an MRI of the right hand showing destructive changes and abnormal signal in the distal third metacarpal consistent with osteomyelitis along with diffuse soft tissue edema around the third metacarpal with some subcutaneous edema noted. Orthopedic surgery Dr. Champion following and planning on incision and drainage today. Infectious disease also following and patient does have a PICC line and is maintained on IV Unasyn and will continue at this time. Will await deep cultures to determine discharge antibiotics. Patient is afebrile. 01/15/2021 Patient is seen this morning and underwent incision and drainage with wound cultures obtained with Dr. Champion orthopedic surgery yesterday. Patient does have a wound VAC applied to the right hand. Dressing is dry and intact. Wound care is also following. Patient is maintained on IV antibiotics and infectious disease following. Will await for culture finalization of the deep tissues to determine discharge antibiotics. Patient states she was told by orthopedic s urgery that she will remain in the hospital for 1-2 weeks. Will discuss with orthopedic surgery about the treatment plan. Patient states pain is fairly controlled at this time and is able to move her fingers and denies any tingling or numbness. 01/16/2021 Patient is seen this morning currently undergoing wound VAC change of the right hand which is extremely tender and having pain 10 out of 10. She did receive 1 mg of Dilaudid prior to procedure. Cultures currently pending and will be await ing for finalization. Case management also following as patient will require IV antibiotics along with wound care and wound VAC in the outpatient setting. Orthopedic surgery along with infectious disease are following. Patient is maintained on Unasyn and will continue until cultures finalized. Patient continues to be extremely tearful and emotional during conversation with her situation and hospitalization. 01/17/2021 No significant change in her overall clinical condition patient is a wound VAC and patient is receiving IV antibiotics and the nursing staff is requesting psychiatric consult because of for anxiety and emotional state. 01/18/2021 Patient probably can be discharged on IV antibiotics and wound VAC tomorrow case management will work on her disposition. Review of systems: Constitutional: No reports of fatigue, fever, or chills Cardiovascular: No reports of chest pain or palpitations Respiratory: No reports of shortness of breath or cough GI: No reports of nausea, vomiting, or diarrhea : No reports of dysuria or retention Neurovascular: No focal deficits Objective - Vital Signs Vital signs: Vital Signs Temp 97.9 F 01/18/21 14:00 Pulse 75 01/18/21 14:00 Resp 16 01/18/21 14:00 BP 108/69 01/18/21 14:00 Pulse Ox 95 01/18/21 14:00 Intake & Output 01/17/21 01/18/21 01/18/21 18:59 06:59 18:59 Intake Total 700 Balance 700 Intake: Oral 700 Other: Voiding Method Toilet # Voids 1 2 - Exam GENERAL: The patient is alert and oriented x3, not in any acute distress. Well developed, well nourished. HEENT: Pupils are round and equally reacting to light. EOMI. No scleral icterus. No conjunctival pallor. Normocephalic, atraumatic. No pharyngeal erythema. No thyromegaly. CARDIOVASCULAR: S1 and S2 present. No murmurs, rubs, or gallops. PULMONARY: Chest is clear to auscultation, no wheezing or crackles. ABDOMEN: Soft, nontender, nondistended, normoactive bowel sounds. No palpable organomegaly. MUSCULOSKELETAL: some stiffness and limited range of motion at the third metacarpal joint with some continued swelling and tenderness on palpation, surgical dressing status post I&D is dry and intact and wound VAC noted of the right hand EXTREMITIES: No cyanosis, clubbing, or pedal edema. NEUROLOGICAL: Gross neurological examination did not reveal any focal deficits. SKIN: Wound VAC noted - Labs CBC & Chem 7: 01/18/21 05:25 01/18/21 05:25 Labs: Abnormal Lab Results - Last 24 Hours (Table) 01/18/21 01/18/21 Range/Units 05:25 05:25 RBC 3.50 L (3.80-5.40) m/uL ESR 31 H (0-20) mm/hr Sodium 136 L (137-145) mmol/L Carbon Dioxide 31 H (22-30) mmol/L Microbiology - Last 24 Hours (Table) 01/12/21 16:54 Blood Culture - Preliminary Blood No Growth after 120 hours 01/12/21 17:07 Blood Culture - Preliminary Blood No Growth after 120 hours Assessment and Plan Plan: -Right hand infection: Patient had a dog bite with recent hospitalization and was sent home on IV antibiotic therapy. Patient following with wound care in the outpatient setting and was sent here for further evaluation as she continued to have swelling at the third metacarpal joint. MRI suggestive of osteomyelitis as mentioned previously. Status post I&D by Dr. Champion orthopedic surgery with wound VAC -Gastroesophageal reflux disease: Continue with Protonix -DVT prophylaxis: Early ambulation -GI prophylaxis: Presently on Protonix -Full code Plan: Patient underwent I&D with orthopedic surgery and cultures were obtained. Deep wound cultures pending. Infectious disease is following. Wound care also following and patient had a wound VAC applied. Will discuss with orthopedic surgery on treatment plan along with infectious disease. Awaiting finalized cultures. Case management also following and awaiting for authorization on the wound VAC in the outpatient setting. Patient will also need IV antibiotic therapy outpatient.
--- NOTE | 2021-01-18 23:59 | PN ---
PROGRESS NOTE DATE OF SERVICE: 01/18/2021 REASON FOR FOLLOWUP: Right hand dog bite cellulitis and osteomyelitis. INTERVAL HISTORY: The patient is currently afebrile. The patient is breathing comfortably. The patient denies having any chest pain or shortness of breath or cough. Pain to the right hand is currently controlled. No nausea, vomiting. No abdominal pain. No diarrhea. PHYSICAL EXAMINATION: Blood pressure 113/66, pulse of 71, temperature 98.2. She is 95% on room air. General description: The patient is an elderly female lying in bed in no distress. Respiratory system: Unlabored breathing, clear to auscultation anteriorly. Heart S1, S2. Regular rate and rhythm. ABDOMEN: Soft, no tenderness. LABS: Culture remains to be negative. DIAGNOSTIC IMPRESSION AND PLAN: Patient with right hand dog bite cellulitis with evidence of osteomyelitis on the basis of the MRI in this patient who is status post debridement of the wound. The patient is currently covered with Unasyn. She did get a PICC line and will plan for continuation of Unasyn for a total of 6 weeks. Local wound care with wound VAC. Once antibiotic arranged, she will be able to go home from ID standpoint. Continue supportive care. MMODL / IJN: [id number] /
[2021-01-19] MEDS: AMPICILLIN-SULBACTAM 3 GM in SODIUM CHLORIDE 0.9% 100 ML IVPB SCH ×2 (00:14→05:48)
[2021-01-19] MEDS: HYDROcodone/APAP 7.5-325MG 1 EACH TAB PO PRN ×2 (01:56→08:06)
[2021-01-19] MEDS: ALPRAZolam 0.25 MG TAB PO PRN (03:35)
[2021-01-19] MEDS: PANTOPRAZOLE 40 MG TABLET PO SCH (08:07)
--- NOTE | 2021-01-19 08:56 | P.PN ---
Subjective Progress Note Date: 01/12/21 Principal diagnosis: Osteomyelitis right hand. Status post dog bite right hand. This is a 65-year-old female who is admitted for evaluation of a right hand infection. Patient states that she was bitten by a dog on December 24 and has been on IV antibiotics for 10 days and following with Dr. Jin. Patient states that her swelling and pain have significantly improved, but she still has some residual swelling to the dorsal aspect of the right hand. Patient states that initially she had small puncture wounds from the bite, but these have completely healed. Patient reports stiffness with motion of the right hand. Patient denies any fever or chills, numbness, weakness, tingling or any worsening symptoms. MRI revealed a sequestrum around the third metacarpal head with evidence of osteomyelitis. She was taken to the OR on 01/14/2021 for incision and drainage and cultures. Wound VAC was applied. She is stable from an orthotic standpoint. She is afebrile and labs are stable. 01/19/2021: The patient states that her pain is fairly well controlled and is improving. She continues to have some stiffness to the fingers which is also improving. She is afebrile and vital signs are stable. Final wound culture results show no growth. Objective - Vital Signs Vital signs: Vital Signs Temp 98.2 F 01/19/21 02:00 Pulse 85 01/19/21 02:00 Resp 16 01/19/21 02:00 BP 127/77 01/19/21 02:00 Pulse Ox 97 01/19/21 02:00 Intake & Output 01/18/21 01/19/21 01/19/21 18:59 06:59 18:59 Other: # Voids 1 3 1 - Exam This is a pleasant 65-year-old female in no acute distress. She is alert and oriented 3. Exam of the right upper extremity reveals that her wound VAC is in place. She is able to wiggle her fingers today without difficulty or pain. Less swelling today. She has normal sensation to the fingertips. Capillary refill is less than 3 seconds. - Labs CBC & Chem 7: 01/18/21 05:25 01/18/21 05:25 Labs: Microbiology - Last 24 Hours (Table) 01/12/21 16:54 Blood Culture - Final Blood No Growth after 144 hours 01/12/21 17:07 Blood Culture - Final Blood No Growth after 144 hours 01/14/21 17:05 Anaerobic Culture - Final Hand - Right 01/14/21 17:05 Anaerobic Culture - Final Hand - Right 01/14/21 17:05 Anaerobic Culture - Final Hand - Right 01/14/21 17:05 Anaerobic Culture - Final Hand - Right Assessment and Plan (1) Acute osteomyelitis of metacarpal bone of right hand Current Visit: Yes Status: Acute Code(s): M86.141 - OTHER ACUTE OSTEOMYELITIS, RIGHT HAND SNOMED Code(s): 772437068 (2) Dog bite of right hand with infection Current Visit: Yes Status: Acute Priority: Medium Code(s): S61.451A - OPEN BITE OF RIGHT HAND, INITIAL ENCOUNTER; L08.9 - LOCAL INFECTION OF THE SKIN AND SUBCUTANEOUS TISSUE, UNSP; W54.0XXA - BITTEN BY DOG, INITIAL ENCOUNTER SNOMED Code(s): 368383841 (3) Failure of outpatient treatment Current Visit: Yes Status: Acute Code(s): Z78.9 - OTHER SPECIFIED HEALTH STATUS SNOMED Code(s): 125351246 Plan: The clinical findings are discussed with the patient. Wound care will be changing her wound VAC today and possibly changing to Aquac[employer] silver packing. She may be discharged home when cleared with Internal medicine and infectious disease.
[2021-01-19] MEDS ORDERED: ALPRAZolam 0.25 MG TAB PO STA (09:50)
[2021-01-19] MEDS: HYDROmorphone 1 MG/ML 1 ML SYRINGE IVP PRN ×2 (10:05→10:55)
[2021-01-19 10:15] VITALS: BP 110/65; PULSE 70; TEMP 98
[2021-01-19 11:28] VITALS: BMI 19.7
--- NOTE | 2021-01-19 13:10 | P.DS ---
Providers Date of admission: 01/13/21 15:14 Expected date of discharge: 01/19/21 Attending physician: Vinod Pinon Consults: 01/12/21 18:43 Consult Physician Urgent Consulting Provider: Cuate Rodrigues Consult Reason/Comments: right hand infection Do you want consulting provider notified?: Already Contacted 01/12/21 18:44 Consult Physician Urgent Consulting Provider: Lu Jin Consult Reason/Comments: right hand infection Do you want consulting provider notified?: Yes 01/17/21 14:23 Consult Physician Routine Consulting Provider: Sg Hernandez Consult Reason/Comments: feeling of being overwhelmed, stress, anxiety, Do you want consulting provider notified?: Yes [facility]: Final diagnosis -Right hand infection: Patient had a dog bite with recent hospitalization and was sent home on IV antibiotic therapy with failure of outpatient treatment. -osteomyelitis as noted on MRI of right hand third metacarpal, status post I&D and wound VAC -Gastroesophageal reflux disease -DVT prophylaxis -GI prophylaxis -Full code Discharge disposition Patient is being discharged in a stable condition with guarded prognosis to home. Patient will follow-up with Dr. Delgado in the outpatient setting upon discharge. Patient is also to follow-up with Dr. Champion and Dr. Jin in the outpatient setting. Patient will continue on IV antibiotics and wound VAC as instructed. Patient will also continue with home care in the outpatient setting. Total time taken is greater than 35 minutes. Hospital course This is a 65-year-old female who presented to the emergency room with increasing right hand swelling and infection and was originally sent home on IV antibiotic therapy and is being closely monitored. Patient was seen and evaluated in the wound care center and felt the infection was worsening and was sent to the hospital for further evaluation. Factious disease following along with orthopedic surgery and patient underwent MRI showing osteomyelitis within that third metacarpal area. Patient underwent incision and drainage and is with orthopedic surgery of the right hand and was placed on a wound VAC. Patient also was maintained on antibiotics and received a PICC line and will continue with IV antibiotic therapy in the outpatient setting. Patient will continue to follow-up with orthopedic surgery along with infectious disease at the wound center. Patient will also have home care in the outpatient setting to manage the wound care VAC. Deep cultures are finalized and are negative. Currently no reports of chest pain, shortness of breath, or palpitations. Patient is afebrile. No reports of nausea or vomiting and patient is tolerating diet. Patient will be discharged home today. On exam vital signs are stable. Cardio S1, S2 are muffled. Respiratory system shows diminished breath sounds at the bases with no wheezing or rhonchi noted. Abdomen is soft and nontender. Nervous system shows no focal deficits. Please refer to medication reconciliation sheet for a list of medications. Patient Condition at Discharge: Stable Plan - Discharge Summary New Discharge Prescriptions: New Acetaminophen Tab [Tylenol] 650 mg PO Q6HR PRN tab PRN Reason: Mild Pain Or Fever > 100.5 diazePAM [Valium] 2 mg PO TID PRN #12 tab PRN Reason: Anxiety HYDROcodone/APAP 7.5-325MG [Racine 7.5-325] 1 each PO Q4H PRN #16 tab PRN Reason: Pain ALPRAZolam [Xanax] 0.25 mg PO TID PRN #12 tab PRN Reason: Anxiety Continue Pantoprazole Sodium [Protonix] 40 mg PO DAILY #30 tablet.dr Phan Medication List Pantoprazole Sodium [Protonix] 40 mg PO DAILY #30 tablet. 12/31/20 [Rx] ALPRAZolam [Xanax] 0.25 mg PO TID PRN #12 tab 01/19/21 [Rx] Acetaminophen Tab [Tylenol] 650 mg PO Q6HR PRN tab 01/19/21 [Rx] HYDROcodone/APAP 7.5-325MG [Racine 7.5-325] 1 each PO Q4H PRN #16 tab 01/19/21 [Rx] diazePAM [Valium] 2 mg PO TID PRN #12 tab 01/19/21 [Rx] Follow up Appointment(s)/Referral(s): [facility] [NON-STAFF] - Sukumar Champion MD [STAFF PHYSICIAN] - 02/02/21 10:00 am Lu Jin MD [STAFF PHYSICIAN] - 1 Week Elder Delgado MD [Primary Care Provider] - 1-2 days Activity/Diet/Wound Care/Special Instructions: Follow up with Dr. Jin - [facility] in 1 week - [phone] Wound Vac to right upper extremity, black foam, slow intensity, settings 125 mmHg. Change three times per week. Activity Limited until follow-up Follow-up with primary care provider upon discharge Follow-up with orthopedics along with infectious disease Continue antibiotics Continue with wound VAC and wound care Continue current diet Discharge Disposition: HOME WITH HOME HEALTH SERVICES
--- NOTE | 2021-01-19 14:06 | PN ---
PROGRESS NOTE DATE OF SERVICE: 01/19/2021 REASON FOR FOLLOWUP: Right hand dog bite cellulitis and osteomyelitis. INTERVAL HISTORY: The patient is currently afebrile. The patient is feeling better. Breathing comfortably. Overall pain and discomfort to the right hand is decreased. No chest pain or cough. No abdominal pain or diarrhea. PHYSICAL EXAMINATION: Blood pressure 110/65, pulse of 70, temperature 98. She is 97% room air. General description is an elderly female lying in bed in no distress. Examination of right hand, tendon is exposed. Overall wound base looks clean. Surrounding swelling and redness has improved. No foul-smelling drainage. LABS: Hemoglobin 11.8, white count 4.0, BUN of 11, creatinine 0.62. Culture so far negative. DIAGNOSTIC IMPRESSION AND PLAN: Patient with right hand dorsum dog bite cellulitis and underlying osteomyelitis in this patient status post debridement. Patient overall improvement. The wound looks clean. Recommend local care to continue with wound VAC. Antibiotic in the form of Unasyn 3 grams q.6 hours for 4 weeks, weekly monitoring . Followup in the wound clinic next week. MMODL / IJN: [id number] /
== END 2021-01-19 14:40 | disposition home health service (06) | DRG 513 ==
LOC: EC 15:25 → 6PED 18:28 → OBSVTOIN 01-13 15:14 → 6PED 01-18 23:46
PROVIDERS: ADMIT Hospitalist; ATTEND Hospitalist
PROC: 0JBJ0ZZ Excision of Right Hand Subcutaneous Tissue and Fascia, Open Approach (ICD-10-PCS; principal; 2021-01-15)
PROC: 0RBU0ZZ Excision of Right Metacarpophalangeal Joint, Open Approach (ICD-10-PCS; 2021-01-15)
DX: M86.141 Other acute osteomyelitis, right hand (principal); L03.113 Cellulitis of right upper limb; M00.9 Pyogenic arthritis, unspecified; S61.451A Open bite of right hand, initial encounter; W54.0XXA Bitten by dog, initial encounter; Z87.891 Personal history of nicotine dependence; K21.9 Gastro-esophageal reflux disease without esophagitis; F43.22 Adjustment disorder with anxiety; Z20.822 Contact with and (suspected) exposure to COVID-19
CPT/HCPCS: 36415; 36573; 80048; 80053; 85025; 85652; 86140; 87040; 87070; 87075; 87205; 87635; 88307; 88311; 94760; 99283

== ENCOUNTER → 2021-03-02 | Outpatient (CLI) | payer MEDICARE ==
--- NOTE | 2021-03-02 13:18 | XR ---
EXAMINATION TYPE: XR hand complete RT DATE OF EXAM: 03/02/2021 COMPARISON: 12/24/2020 HISTORY: Pain TECHNIQUE: Three views are submitted. FINDINGS: The osseous structures are intact. Diffuse osteopenia. Narrowing of all DIP, MCP and PIP joints noted . There is erosive change involving the head of the third metacarpal. No definite acute fracture. IMPRESSION: 1. Diffuse osteopenia with arthropathy. However, there is to be erosive change involving the head of the third metacarpal which would be compatible with osteomyelitis in the appropriate clinical setting .
[2021-03-02 19:22] LABS: Basophils # (A) 0.04 X 10*3/uL (0.00-0.10); Basophils % (A) 0.8 %; Eosinophils # (A) 0.13 X 10*3/uL (0.04-0.35); Eosinophils % (A) 2.6 %; HCT 39.2 % (37.2-46.3); HGB 12.5 g/dL (12.0-15.0); Lymphocytes # (A) 2.16 X 10*3/uL (0.90-5.00); Lymphocytes % (A) 42.4 %; MCH 31.9 pg (27.0-32.0); MCHC 31.9 g/dL (32.0-37.0); Mean Platelet Volume 11.4 fL (9.5-12.2); Monocytes # (A) 0.49 X 10*3/uL (0.20-1.00); Monocytes % (A) 9.6 %; Neutrophils # (A) 2.26 X 10*3/uL (1.80-7.70); Neutrophils % (A) 44.4 %; Platelet Count 237 X 10*3/uL (140-440); RBC 3.92 X 10*6/uL (4.10-5.20); RDW 13.1 % (11.5-14.5); WBC 5.09 X 10*3/uL (4.50-10.00)
[2021-03-02 21:40] LABS: ALT 100 U/L (8-44); AST 71 U/L (13-35); African American GFR (CKD) 89.7 (60.0-200.0); Albumin/Globulin Ratio 1.92 (1.60-3.17); Alkaline Phosphatase 119 U/L (41-126); C Reactive Protein <0.4 mg/dL (0.0-0.8); Calcium 9.3 mg/dL (8.7-10.3); Carbon Dioxide 29.1 mmol/L (21.6-31.8); Chloride 104 mmol/L (96-109); Globulin 2.4 g/dL (1.6-3.3); Glucose 99 mg/dL (70-110); Non-African American GFR(CKD) 77.4 (60.0-200.0); Potassium 4.7 mmol/L (3.5-5.5); Sodium 141 mmol/L (135-145); Total Bilirubin 0.5 mg/dL (0.3-1.2)
[2021-03-02 22:51] LABS: Erythrocyte Sedimentation Rate 12 mm/Hr (0-30)
== END | disposition home or self-care (01) ==
LOC: LABWHC1 12:24
PROVIDERS: ATTEND Internal Medicine Infectious Disease
DX: M85.841 Other specified disorders of bone density and structure, right hand (principal); M86.9 Osteomyelitis, unspecified
CPT/HCPCS: 36415; 80048; 80076; 85025; 85652; 86140

== ENCOUNTER 2021-04-08 15:08 | Emergency (ER) | payer MEDICARE ==
[2021-04-08 15:15] VITALS: RESP 18
[2021-04-08] MEDS ORDERED: SODIUM CHLORIDE 0.9% 1,000 ML IV STA (15:40)
[2021-04-08] MEDS ORDERED: PANTOPRAZOLE 40 MG/10 ML VIAL IVP STA (15:40)
[2021-04-08 16:42] LABS: Albumin 3.6 g/dL (3.5-5.0); Calcium 8.8 mg/dL (8.4-10.2); Magnesium 1.9 mg/dL (1.6-2.3); Potassium 3.5 mmol/L (3.5-5.1); Total Bilirubin 0.6 mg/dL (0.2-1.3); Total Protein 5.8 g/dL (6.3-8.2)
[2021-04-08 16:46] LABS: Basophils % (A) 0 %; Eosinophils # (A) 0.1 k/uL (0-0.7); Eosinophils % (A) 2 %; HCT 37.5 % (34.0-46.0); HGB 12.6 gm/dL (11.4-16.0); Lymphocytes # (A) 1.4 k/uL (1.0-4.8); Lymphocytes % (A) 31 %; MCH 31.8 pg (25.0-35.0); MCHC 33.5 g/dL (31.0-37.0); MCV 94.7 fL (80.0-100.0); Mean Platelet Volume 7.6; Monocytes # (A) 0.6 k/uL (0-1.0); Monocytes % (A) 13 %; Neutrophils # (A) 2.2 k/uL (1.3-7.7); Neutrophils % (A) 49 %; Platelet Count 242 k/uL (150-450); RBC 3.96 m/uL (3.80-5.40); RDW 13.9 % (11.5-15.5); WBC 4.5 k/uL (3.8-10.6)
[2021-04-08 16:47] LABS: INR 0.9 (<1.2); Partial Thromboplastin Time 23.6 sec (22.0-30.0); Prothrombin Time 10.1 sec (9.0-12.0)
--- NOTE | 2021-04-08 17:04 | ED ---
GI Bleed HPI - General Chief complaint: GI Bleed Stated complaint: Bacterial infection, Blood in stool Time Seen by Provider: 04/08/21 15:24 Source: patient, RN notes reviewed Mode of arrival: ambulatory Limitations: no limitations - History of Present Illness Initial comments: Patient is a 65-year-old female that presents to the emergency department co mplaining of bright red blood per rectum the last day. 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 She notes that she recently underwent testing for Clostridium difficile on April 06 2021 and was given more antibiotics prophylactically.. She notes that she's been having diarrhea for the past 8-9 days with decreased appetite. She notes that just over the last day she has noted some bright red blood per rectum. She did note she has a history of hemorrhoids and does not think that this is the issue. She does note that she has some abdominal cramping and gas pains. She notes that she is on vancomycin and Augmentin curr ently. She denied any chest pain first breath headache vomiting constipation fever fatigue chills. - Related Data Home Medications Medication Instructions Recorded Confirmed Vancomycin 125 mg PO Q6H 04/08/21 04/08/21 Allergies Allergy/AdvReac Type Severity Reaction Status Date / Time ibuprofen [From Motrin] Allergy Dyspnea Verified 04/08/21 17:11 Review of Systems ROS Statement: Those systems with pertinent positive or pertinent negative responses have been documented in the HPI. ROS Other: All systems not noted in ROS Statement are negative. Past Medical History Past Medical History: No Reported History Additional Past Medical History / Comment(s): asthma as a child History of Any Multi-Drug Resistant Organisms: None Reported Past Surgical History: Orthopedic Surgery, Tonsillectomy Past Anesthesia/Blood Transfusion Reactions: No Reported Reaction Past Psychological History: No Psychological Hx Reported Smoking Status: Former smoker Past Alcohol Use History: Occasional Past Drug Use History: None Reported - Past Family History Mother Family Medical History: No Reported History General Exam Limitations: no limitations General appearance: alert, in no apparent distress Head exam: Present: atraumatic, normocephalic, normal inspection Eye exam: Present: normal appearance, PERRL, EOMI. Absent: scleral icterus, conjunctival injection, periorbital swelling Neck exam: Present: normal inspection Respiratory exam: Present: normal lung sounds bilaterally. Absent: respiratory distress, wheezes, rales, rhonchi, stridor Cardiovascular Exam: Present: regular rate, normal rhythm, normal heart sounds. Absent: systolic murmur, diastolic murmur, rubs, gallop, clicks GI/Abdominal exam: Present: soft, tenderness (Mild throughout), normal bowel sounds. Absent: distended, guarding, rebound, rigid Extremities exam: Present: normal inspection, full ROM, normal capillary refill. Absent: tenderness, pedal edema, joint swelling, calf tenderness Neurological exam: Present: alert, oriented X3, CN II-XII intact Psychiatric exam: Present: normal affect, normal mood Skin exam: Present: warm, dry, intact, normal color. Absent: rash Course Vital Signs 04/08/21 04/08/21 15:11 17:00 Temperature 97.7 F 98.5 F Pulse Rate 117 H 67 Respiratory 18 18 Rate Blood Pressure 112/71 98/60 O2 Sat by Pulse 96 100 Oximetry Medical Decision Making - Medical Decision Making 65-year-old female complaining of bright red rectum times one after being on antibiotics for Clostridium difficile. Labs, KUB, 40 mg of Protonix, 1 L normal saline, occult blood test ordered. Labs unremarkable, stool occult blood test negative. KUB negative, nonacute abdomen. Case discussed with Dr. Lim, patient discharge home to continue antibiotic therapy and follow-up with her doctors. - Lab Data Result diagrams: 04/08/21 16:20 04/08/21 16:20 Lab Results 04/08/21 04/08/21 04/08/21 Range/Units 16:20 16:20 16:20 WBC 4.5 (3.8-10.6) k/uL RBC 3.96 (3.80-5.40) m/uL Hgb 12.6 (11.4-16.0) gm/dL Hct 37.5 (34.0-46.0) % MCV 94.7 (80.0-100.0) fL MCH 31.8 (25.0-35.0) pg MCHC 33.5 (31.0-37.0) g/dL RDW 13.9 (11.5-15.5) % Plt Count 242 (150-450) k/uL MPV 7.6 Neutrophils % 49 % Lymphocytes % 31 % Monocytes % 13 % Eosinophils % 2 % Basophils % 0 % Neutrophils # 2.2 (1.3-7.7) k/uL Lymphocytes # 1.4 (1.0-4.8) k/uL Monocytes # 0.6 (0-1.0) k/uL Eosinophils # 0.1 (0-0.7) k/uL Basophils # 0.0 (0-0.2) k/uL PT 10.1 (9.0-12.0) sec INR 0.9 (<1.2) APTT 23.6 (22.0-30.0) sec Sodium 136 L (137-145) mmol/L Potassium 3.5 (3.5-5.1) mmol/L Chloride 102 (98-107) mmol/L Carbon Dioxide 27 (22-30) mmol/L Anion Gap 7 mmol/L BUN 22 H (7-17) mg/dL Creatinine 0.92 (0.52-1.04) mg/dL Est GFR (CKD-EPI)AfAm 76 (>60 ml/min/1.73 sqM) Est GFR (CKD-EPI)NonAf 66 (>60 ml/min/1.73 sqM) Glucose 95 (74-99) mg/dL Calcium 8.8 (8.4-10.2) mg/dL Magnesium 1.9 (1.6-2.3) mg/dL Total Bilirubin 0.6 (0.2-1.3) mg/dL AST 40 H (14-36) U/L ALT 45 H (4-34) U/L Alkaline Phosphatase 85 (38-126) U/L Troponin I (0.000-0.034) ng/mL Total Protein 5.8 L (6.3-8.2) g/dL Albumin 3.6 (3.5-5.0) g/dL Lipase 59 (23-300) U/L Stool Occult Blood (Negative) 04/08/21 04/08/21 Range/Units 16:20 16:20 WBC (3.8-10.6) k/uL RBC (3.80-5.40) m/uL Hgb (11.4-16.0) gm/dL Hct (34.0-46.0) % MCV (80.0-100.0) fL MCH (25.0-35.0) pg MCHC (31.0-37.0) g/dL RDW (11.5-15.5) % Plt Count (150-450) k/uL MPV Neutrophils % % Lymphocytes % % Monocytes % % Eosinophils % % Basophils % % Neutrophils # (1.3-7.7) k/uL Lymphocytes # (1.0-4.8) k/uL Monocytes # (0-1.0) k/uL Eosinophils # (0-0.7) k/uL Basophils # (0-0.2) k/uL PT (9.0-12.0) sec INR (<1.2) APTT (22.0-30.0) sec Sodium (137-145) mmol/L Potassium (3.5-5.1) mmol/L Chloride (98-107) mmol/L Carbon Dioxide (22-30) mmol/L Anion Gap mmol/L BUN (7-17) mg/dL Creatinine (0.52-1.04) mg/dL Est GFR (CKD-EPI)AfAm (>60 ml/min/1.73 sqM) Est GFR (CKD-EPI)NonAf (>60 ml/min/1.73 sqM) Glucose (74-99) mg/dL Calcium (8.4-10.2) mg/dL Magnesium (1.6-2.3) mg/dL Total Bilirubin (0.2-1.3) mg/dL AST (14-36) U/L ALT (4-34) U/L Alkaline Phosphatase (38-126) U/L Troponin I <0.012 (0.000-0.034) ng/mL Total Protein (6.3-8.2) g/dL Albumin (3.5-5.0) g/dL Lipase (23-300) U/L Stool Occult Blood Negative (Negative) - Radiology Data Radiology results: report reviewed, image reviewed KUB: Nonacute abdomen. Disposition Clinical Impression: Hematochezia, Bright red blood per rectum, Diarrhea due to drug Disposition: HOME SELF-CARE Condition: Stable Instructions (If sedation given, give patient instructions): Gastrointestinal Bleeding (ED) Additional Instructions: Please return to the Emergency Department if symptoms worsen or any other concer ns. Continue to follow-up with infectious disease doctors the prescribed antibiotics. Use oral fluid intake increase dietary fiber. Continue take antibiotics as prescribed until complete. Is patient prescribed a controlled substance at d/c from ED?: No Referrals: Elder Delgado MD [Primary Care Provider] - 1-2 days Time of Disposition: 18:10
--- NOTE | 2021-04-08 18:02 | XR ---
EXAMINATION TYPE: XR KUB DATE OF EXAM: 04/08/2021 COMPARISON: NONE HISTORY: Abdominal cramping TECHNIQUE: Single view FINDINGS: Bowel gas pattern is normal. There is no sign of intestinal obstruction or pneumoperitoneum . Fecal pattern is normal. Lung bases are clear. There are no pathologic calcifications over the kidn eys. IMPRESSION: Nonacute abdomen.
[2021-04-08 18:35] VITALS: BP 99/55; PULSE 82; TEMP 98.4
== END 2021-04-08 18:34 | disposition home or self-care (01) ==
LOC: EC 15:08
DX: K62.5 Hemorrhage of anus and rectum (principal); K52.1 Toxic gastroenteritis and colitis; T36.95XA Adverse effect of unspecified systemic antibiotic, initial encounter; Z87.891 Personal history of nicotine dependence
CPT/HCPCS: 36415; 74018; 80053; 82272; 83690; 83735; 84484; 85025; 85610; 85730; 96361; 96374; 99284